=== PATIENT | female | born 1930 | race Caucasian/White ===

== ENCOUNTER 2016-12-21 08:11 | Inpatient (IN) | payer BC, OTHER ==
[~2016-12-21] VITALS: Ht 162.6 cm; Wt 79.0 kg
[~2016-12-21 08:11] MED LIST: ASPI81TA28 PO; Calcium PO; LSN25 PO; SIMV5TAB5 PO; VITBC PO; magnesium; vitamin d3
[2016-12-21] MEDS ORDERED: ONDANSETRON 8 MG/54 ML D5W IV STA (08:49)
[2016-12-21] MEDS ORDERED: SODIUM CHLORIDE 0.9% 1000ML 1,000 ML IV STA (08:49)
[2016-12-21 09:14] LABS: HEMATOCRIT 50.7 % (37-47); MEAN CELL VOLUME 94.6 fL (80-100); MEAN CORPUSCULAR HEMOGLOBIN 31.7 pg (25-34); MEAN CORPUSCULAR HGB CONC 33.5 g/dl (32-36); MEAN PLATELET VOLUME 10.9 fL (7.4-10.4); PLATELET COUNT 315 K/uL (130-400); RED BLOOD COUNT 5.36 M/uL (4.2-5.4); WHITE BLOOD COUNT 24.02 K/uL (4.8-10.8)
[2016-12-21 09:22] LABS: ALT/SGPT 29 U/L (12-78); BLOOD UREA NITROGEN 15 mg/dl (7-18); BUN/CREATININE RATIO 13.6 (10-20); CALCIUM 9.2 mg/dl (8.5-10.1); CARBON DIOXIDE 28 mmol/L (21-32); CHLORIDE 99 mmol/L (98-107); GLUCOSE 231 mg/dl (70-99); SODIUM 136 mmol/L (136-145)
[2016-12-21 09:29] LABS: URINE APPEARANCE CLOUDY (CLEAR); URINE BILIRUBIN NEG (NEG); URINE COLOR DK YELLOW; URINE EPITHELIAL CELL AUTO >30 /lpf (0-5); URINE NITRITE NEG (NEG); UROBILINOGEN NEG (NEG); ZZURINE CULT IF INDIC CATH YES
[2016-12-21 09:31] LABS: ALKALINE PHOSPHATASE 137 U/L (45-117); AST/SGOT 19 U/L (15-37); CKMB/CK RATIO 6.6 (0-3.0)
[2016-12-21 09:32] LABS: PARTIAL THROMBOPLASTIN RATIO 1.1; PROTHROMBIN TIME (PATIENT) 10.8 SECONDS (9.0-12.0)
[2016-12-21 09:32] LABS: MANUAL MICROSCOPIC REQUIRED? NO; REVIEW REQ? YES
--- NOTE | 2016-12-21 09:44 | DIAGNOSTIC IMAGING REPORT ---
CHEST ONE VIEW PORTABLE CLINICAL HISTORY: Altered mental status. Weakness. COMPARISON STUDY: Chest radiograph June 08, 2014. FINDINGS: There is no pneumothorax. A small left pleural effusion is noted. There is pulmonary vascular congestion with suspected mild pulmonary edema. Cardiomegaly is unchanged. Exam is mildly compromised by motion artifact. IMPRESSION: 1. Pulmonary vascular congestion with suspected mild pulmonary edema. 2. Small left pleural effusion. 3. Study mildly compromised by motion artifact. Electronically signed by: Milan Cardenas M.D. 12/21/2016 9:43 AM Dictated Date/Time: 12/21/2016 9:42 AM
[2016-12-21 09:47] LABS: BASO % 0.1 %; BASO ABS # 0.02 K/uL (0-0.2); COMPLETE YES; IG% 0.5 %; LYMPH % 2.9 %; LYMPH ABS # 0.69 K/uL (1.2-3.4); MONO % 4.3 %; NEUT % 92.2 %
[2016-12-21] MEDS ORDERED: METOPROLOL TARTRATE 1 MG/ML VIAL IV STA (09:49)
[2016-12-21] MEDS ORDERED: FURO-85 PO (10:08)
[2016-12-21] MEDS ORDERED: DILT-113 PO (10:08)
[2016-12-21] MEDS ORDERED: B-CO1CAP17 PO (10:08)
[2016-12-21] MEDS ORDERED: ASPCH81X PO (10:08)
[2016-12-21] MEDS ORDERED: CALC1TAB27 PO (10:08)
[2016-12-21] MEDS ORDERED: DILTIAZEM BOLUS / DRIP IV STA ×2 (10:36→13:28)
[2016-12-21] MEDS ORDERED: DILTIAZEM HCL 5 MG/ML 5 ML VIAL IV SCH (10:45)
[2016-12-21] MEDS: DILTIAZEM HCL INJ 125 MG in DEXTROSE 5% 100ML IV PRN ×5 (11:10→22:04)
[2016-12-21] MEDS ORDERED: CEFTRIAXONE SOD INJ 1 GM ADDVIAL IV STA (12:01)
[2016-12-21] MEDS ORDERED: ALUMINUM/MAGNESIUM/SIMETH (MAALOX MAX) 30 ML UDC PO PRN (13:15)
[2016-12-21] MEDS ORDERED: MAGNESIUM HYDROXIDE SUSP 30 ML UDC PO PRN (13:15)
[2016-12-21] MEDS ORDERED: ONDANSETRON INJ 2 MG/ML 2 ML VIAL IV PRN (13:15)
[2016-12-21] MEDS ORDERED: POLYETHYLENE (MIRALAX) 17 GM PACK PO PRN (13:15)
[2016-12-21 13:45] VITALS: O2SAT 96; Ht 162.6 cm; Wt 79.0 kg
--- NOTE | 2016-12-21 13:50 | History and Physical ---
History & Physical Date & Time of Service: Dec 21, 2016 at 13:30 Chief Complaint: VOMIT Primary Care Physician: Romario Dominguez M.D. History of Present Illness Source: patient, family (son at bedside), hospital records, [place] [facility] ([facility]) This is an 86 y/o female with a history of a-fib, HTN, HLD, CVA, diastolic CHF, depression and dementia who presented to the ED on 12/21 from [facility] with vomiting x 2 days. The patient has a history of dementia and most of the history is provided by the son who is at bedside. Per nursing at [facility], the patient began vomiting yesterday morning. The patient's son came to see her later in the morning and she had been starting to feel better. She was able to eat throughout the day without any issues. This morning the patient began vomiting again while the staff was getting her out of bed for the day. The son reports the vomitus was fluorescent green. The patient had stated to the ED physician that she was having diarrhea, but denies this to me. The patient denies fevers, chills, sweats, chest pain, palpitations, claudication, cough, wheezing, shortness of breath, abdominal pain, dysuria, hematuria, urinary retention, paralysis, weakness, numbness and tingling. Past Medical/Surgical History Medical Problems: (1) ASCVD Status: Chronic (2) Atrial fibrillation Status: Chronic (3) CVA Status: Resolved (4) Depression Status: Chronic (5) GI bleed Status: Resolved (6) Hyperlipidemia Status: Chronic (7) Hypertension Status: Chronic (8) SENILE DEMENTIA UNCOMP Status: Chronic Diastolic CHF Surgical Problems: (1) History of appendectomy Status: Resolved (2) History of cholecystectomy Status: Resolved (3) History of ORIF of left ankle x2 Status: Resolved (4) History of sphincterotomy Status: Resolved Family History FHx: coronary artery disease FATHER FHx: stroke FATHER Hypertension Social History Smoking Status: Never Smoker Smokeless Tobacco Use: No Alcohol Use: none Drug Use: none Marital Status: Housing status: [place] [facility] ([facility]) Occupational Status: retired Immunizations History of Influenza Vaccine: Yes Influenza Vaccine Date: Mar 01, 2010 History of Tetanus Vaccine?: Yes Tetanus Immunization Date: Jul 30, 2005 History of Pneumococcal: Yes Pneumococcal Date: Mar 01, 2010 History of Hepatitis B Vaccine: No Multi-Drug Resistant Organisms History of MDRO: No Allergies Coded Allergies: Bupropion (Verified Allergy, Mild, 12/21/16) Sulfa Drugs (Verified Allergy, Mild, 06/08/14) Carbamazepine (Unverified Allergy, Unknown, UNKNOWN, 12/21/16) Sulfa Antibiotics (Unverified Allergy, Unknown, UNKNOWN, 12/21/16) Venlafaxine (Unverified Allergy, Unknown, UNKNOWN, 12/21/16) Lorazepam (Verified Adverse Reaction, Intermediate, HALLUCINATIONS, RESTLESNESS, 06/08/14) FAMILY PROVIDED INFORMATION. Anesthetics, Halogenated (Verified Adverse Reaction, Mild, GENERAL ANESTHESIA-SEVERE INSOMNIA, 06/08/14) Zolpidem (Verified Adverse Reaction, Mild, HALLUCINATIONS, 12/21/16) Home Medications Scheduled Aspirin (Aspirin Chewable), 20.25 MG PO DAILY Strnreb-Qpeeyziwm-Defa (Calcium Magnesium & Zinc), 1 TAB PO DAILY Diltiazem Hcl Ext Rel (Tiazac), 180 MG PO DAILY Lisinopril (Lisinopril), 2.5 MG PO QAM Vitamin B Cmplx/Vitc/Folic Ac (Nephrocaps), 1 CAP PO DAILY Scheduled PRN Furosemide (Lasix), 20 MG PO DAILY PRN for WEIGHT GAIN Review of Systems Constitutional: No fever, No chills, No sweats Eyes: No worsening of vision, No eye pain, No diplopia ENT: No hearing loss, No sore throat, No trouble swallowing Respiratory: No cough, No wheezing, No shortness of breath Cardiovascular: No chest pain, No claudication, No palpitations Abdomen: + nausea, + vomiting, No pain Musculoskeletal: No joint pain, No muscle pain, No calf pain Genitourinary - Female: No dysuria, No urinary retention, No hematuria Neurologic: No paralysis, No weakness, No numbness/tingling Integumentary: No rash, No itch, No color change Physical Exam Vital Signs Date Time Temp Pulse Resp B/P (MAP) Pulse Ox O2 Delivery O2 Flow Rate FiO2 12/21/16 13:00 89 14 132/75 97 Nasal Cannula 2.0 12/21/16 12:56 75 18 120/73 98 Nasal Cannula 2.0 12/21/16 12:33 84 18 135/82 97 Nasal Cannula 2.0 12/21/16 12:15 80 15 146/82 97 Nasal Cannula 2.0 12/21/16 12:00 105 14 134/86 98 Nasal Cannula 2.0 12/21/16 11:45 104 20 132/90 97 Nasal Cannula 2.0 12/21/16 11:30 103 14 130/79 97 Nasal Cannula 2.0 12/21/16 11:15 95 12 119/76 96 Nasal Cannula 2.0 12/21/16 11:05 110 10 188/112 98 Nasal Cannula 2.0 12/21/16 10:50 109 14 170/119 97 Nasal Cannula 2.0 12/21/16 10:15 105 20 159/97 97 Nasal Cannula 2.0 12/21/16 10:07 106 164/95 12/21/16 09:59 106 12/21/16 09:50 107 16 157/87 98 Nasal Cannula 2.0 12/21/16 09:13 97 Nasal Cannula 2.0 12/21/16 08:55 88 Room Air 12/21/16 08:37 144 12/21/16 08:30 36.6 88 18 160/88 91 Room Air 12/21/16 08:23 91 Room Air General appearance: Well-developed, well-nourished, no apparent distress Head: Normocephalic, atraumatic Eyes: Normal inspection, PERRL, EOMI ENT: +Hard of hearing. Normal ENT inspection, pharynx normal Neck: Supple, no JVD, trachea midline Respiratory/Chest: Lungs clear to auscultation, normal breath sounds, no respiratory distress Cardiovascular: +Irregularly irregular, rate controlled. No gallop, no murmur Abdomen/GI: Normal bowel sounds, non-tender, soft Extremities/Musculoskeletal: Normal inspection, no calf tenderness, no pedal edema Neurological/Psych: +Disoriented to time. Did not know month, year, or current President. Could not tell me age or year but knew birthday. Alert , normal mood/affect, oriented x 2 Skin: Normal color, warm/dry, no rash Diagnostics Laboratory Results Results Past 24 Hours Test 12/21/16 08:32 12/21/16 08:40 12/21/16 09:05 12/21/16 13:01 Range/Units White Blood Count 24.02 4.8-10.8 K/uL Red Blood Count 5.36 4.2-5.4 M/uL Hemoglobin 17.0 12.0-16.0 g/dL Hematocrit 50.7 37-47 % Mean Corpuscular Volume 94.6 80-100 fL Mean Corpuscular Hemoglobin 31.7 25-34 pg Mean Corpuscular Hemoglobin Concent 33.5 32-36 g/dl Platelet Count 315 130-400 K/uL Mean Platelet Volume 10.9 7.4-10.4 fL Neutrophils (%) (Auto) 92.2 % Lymphocytes (%) (Auto) 2.9 % Monocytes (%) (Auto) 4.3 % Eosinophils (%) (Auto) 0.0 % Basophils (%) (Auto) 0.1 % Neutrophils # (Auto) 22.15 1.4-6.5 K/uL Lymphocytes # (Auto) 0.69 1.2-3.4 K/uL Monocytes # (Auto) 1.04 0.11-0.59 K/uL Eosinophils # (Auto) 0.01 0-0.5 K/uL Basophils # (Auto) 0.02 0-0.2 K/uL RDW Standard Deviation 45.1 36.4-46.3 fL RDW Coefficient of Variation 13.1 11.5-14.5 % Immature Granulocyte % (Auto) 0.5 % Immature Granulocyte # (Auto) 0.11 0.00-0.02 K/uL Prothrombin Time 10.8 9.0-12.0 SECONDS Prothromb Time International Ratio 1.0 0.9-1.1 Activated Partial Thromboplast Time 27.8 21.0-31.0 SECONDS Partial Thromboplastin Ratio 1.1 Sodium Level 136 136-145 mmol/L Potassium Level 4.0 3.5-5.1 mmol/L Chloride Level 99 98-107 mmol/L Carbon Dioxide Level 28 21-32 mmol/L Anion Gap 9.0 3-11 mmol/L Blood Urea Nitrogen 15 7-18 mg/dl Creatinine 1.10 0.60-1.20 mg/dl Est Creatinine Clear Calc Drug Dose 35.2 ml/min Estimated GFR () 52.3 Estimated GFR (Non- 45.1 BUN/Creatinine Ratio 13.6 10-20 Random Glucose 231 70-99 mg/dl Calcium Level 9.2 8.5-10.1 mg/dl Magnesium Level 2.0 1.8-2.4 mg/dl Total Bilirubin 0.5 0.2-1 mg/dl Direct Bilirubin < 0.1 0-0.2 mg/dl Aspartate Amino Transf (AST/SGOT) 19 15-37 U/L Alanine Aminotransferase (ALT/SGPT) 29 12-78 U/L Alkaline Phosphatase 137 45-117 U/L Total Creatine Kinase 29 26-192 U/L Creatine Kinase MB 1.9 0.5-3.6 ng/ml Creatine Kinase MB Ratio 6.6 0-3.0 Troponin I 0.021 0-0.045 ng/ml Total Protein 7.8 6.4-8.2 gm/dl Albumin 2.9 3.4-5.0 gm/dl Lipase 71 73-393 U/L Thyroid Stimulating Hormone (TSH) 2.380 0.300-4.500 uIu/ml Bedside Lactic Acid Venous 2.96 0.90-1.70 mmol/L Urine Color DK YELLOW Urine Appearance CLOUDY CLEAR Urine pH 6.0 4.5-7.5 Urine Specific [place] 1.020 1.000-1.030 Urine Protein 2+ NEG Urine Glucose (UA) NEG NEG Urine Ketones TRACE NEG Urine Occult Blood TRACE NEG Urine Nitrite NEG NEG Urine Bilirubin NEG NEG Urine Urobilinogen NEG NEG Urine Leukocyte Esterase SMALL NEG Urine WBC (Auto) 10-30 0-5 /hpf Urine RBC (Auto) 0-4 0-4 /hpf Urine Hyaline Casts (Auto) 5-10 0-5 /lpf Urine Epithelial Cells (Auto) >30 0-5 /lpf Urine Bacteria (Auto) 4+ NEG Urine Renal Epithelial Cells 0-5 /lpf Microbiology Results 12/21/16 Blood Culture, Ordered Pending 12/21/16 Blood Culture, Ordered Pending 12/21/16 Urine Culture, Received Pending Diagnostic Radiology Reviewed the following studies and agree with interpretation as follows: Patient Name: MAY OWEN Unit Number: [id number] Dictated: 12/21/16941 Transcribed: 12/21/16941 JA Printed Date/Time: [~ rep prt dt]/[~ rep prt tm] [~ rep ct labl] - [~ rep ct ivnm] [facility] [place] [address] Dictated: 12/21/1642 Transcribed: 12/21/1642 JA Printed Date/Time: [~ rep prt dt]/[~ rep prt tm] [~ rep ct labl] - [~ rep ct ivnm] Patient: MAY OWEN Address1: [address] [place] [address] Rec: [id number] Address2: Acct ID: [id number] [facility] Zip: [place] [address] Date: 1930 Sex: F Room/Bed: Ref Phy: Romario Dominguez M.D. SC: CHAD Att Phy: Report #: [id number] Anabela Phy: Romario Dominguez M.D. Test: [id number] Admit Phy: Novelty Candy Maker: SUJIT Interpreting Phy: Milan Cardenas MD Diagnosis: VOMIT Ordering Phy: Brayan Ramírez D.O. Service Date: 12/21/16 Admit Date: 12/21/16 MNE: [id number] CONF: DICTATED BY: Milan Cardenas MD]] CC: Brayan Ramírez D.O. Wiedemer, Joseph P. M.D. Endcc: [~ rep ct add3]] CHEST ONE VIEW PORTABLE CLINICAL HISTORY: Altered mental status. Weakness. COMPARISON STUDY: Chest radiograph June 08, 2014. FINDINGS: There is no pneumothorax. A small left pleural effusion is noted. There is pulmonary vascular congestion with suspected mild pulmonary edema. Cardiomegaly is unchanged. Exam is mildly compromised by motion artifact. IMPRESSION: 1. Pulmonary vascular congestion with suspected mild pulmonary edema. 2. Small left pleural effusion. 3. Study mildly compromised by motion artifact. Electronically signed by: Milan Cardenas M.D. 12/21/2016 9:43 AM Dictated Date/Time: 12/21/2016 9:42 AM The status of this report is Signed. Draft = Not yet reviewed or approved by Radiologist. Signed = Reviewed and approved by Radiologist. <AttendingPhy></AttendingPhy> <FamilyPhy>Romario Dominguez M.D.</FamilyPhy> < PrimaryPhy>Romario Dominguez M.D.</PrimaryPhy> <UnitNumber>[id number]</ UnitNumber> <VisitNumber>[id number]</VisitNumber> <PatientName>MAY OWEN</PatientName> <DateOfBirth>1930</DateOfBirth> <Location>[facility]</ Location> <ServiceDate>12/21/16</ServiceDate> <MNE>ESINDI</MNE> <OrderingPhy> Brayan Ramírez D.O.</OrderingPhy> <OrderingPhyMNE>f rep ord dr rodriguez</ OrderingPhyMNE> <DictatingPhyMNE>f rep dict dr rodriguez</DictatingPhyMNE> <CCListMNE> f rep ct mne</CCListMNE> <AdmittingPhyMNE>f pt admit dr rodriguez</AdmittingPhyMNE> < AttendingPhyMNE>f pt attend dr rodriguez</AttendingPhyMNE> <ConsultingPhyMNE>f pt consult dr rodriguez</ConsultingPhyMNE> <FamilyPhyMNE>f pt fam dr rodriguez</FamilyPhyMNE> <OtherPhyMNE>f pt other dr rodriguez</OtherPhyMNE> < PrimaryPhyMNE>f pt prim care dr rodriguez</PrimaryPhyMNE> <ReferringPhyMNE>f pt referring dr rodriguez</ReferringPhyMNE> EKG Reviewed EKG and agree with interpretation as follows: 144 bpm, a-fib with RVR Impression Assessment and Plan 86 y/o female with a history of a-fib, HTN, HLD, CVA, diastolic CHF, depression and dementia who presented to the ED on 12/21 from [facility] with vomiting x 2 days. Pt afebrile on arrival. Tachycardic, in a-fib with RVR and hypoxic with O2 sat 88% on room air. Pt does not typically wear oxygen although son states she is supposed to. The patient was given Lopressor 5 mg IV x 1 with no control of rate. Pt then placed on diltiazem drip with 20 mg bolus and is now rate controlled, BP stable. EKG shows a-fib with RVR, no ischemic changes. CXR suggestive of pulmonary edema. WBC elevated at 24.02. POC lactic acid 2.96. Cardiac enzymes negative. UA 4+ bacteria but also high in epithelial cells. Pt given IVF and Rocephin in ED. Sepsis, vomiting--unknown source, urinary vs GI -Admit to telemetry -Blood cultures x 2, although pt did receive 1 dose Rocephin before they could be drawn -Urine culture pending -Repeat lactic acid now -Check C. diff and stool cultures -NPO except meds due to vomiting. Pt denies any appetite -NSS at 100 cc/hr. Monitor for fluid overload due to h/o CHF -Zosyn IV empirically to cover both urinary and GI sources pending cultures A-fib with RVR--stable, now rate controlled. HR had been up in 140s prior to diltiazem bolus/drip -Continue diltiazem drip, titrate as needed for rate control. Hold home oral diltiazem for now -Continue ASA -EKG q am and prn with chest pain HTN, HLD, h/o CVA--stable -Continue lisinopril 2.5 mg PO qd Chronic diastolic CHF--stable, no acute exacerbation. CXR suggests pulmonary edema but does not sound wet on exam. More likely dehydrated due to vomiting/ sepsis -Hold off Lasix for now -Daily weights, I's & O's GI prophylaxis -Maalox Max 15 mL PO q4h prn dyspepsia -Milk of magnesia 30 mL PO q6h prn constipation -Miralax 17 gm PO qd prn constipation -Zofran 4 mg IV q6h prn nausea DVT prophylaxis -Heparin 5000 units SC q8h -MANUEL carpenter and SCDs Code Status -Level V, DO NOT RESUSCITATE PA Physician Supervision Note: I interviewed and examined the patient. Discussed with Marley Carvalho PAC and agree with findings and plan as documented in the note. Any exceptions or clarifications are listed here: None Patient presents from [facility] where she has been alone due to her 's illness with caregiver support however she's developed profuse nausea vomiting unable take her typical home medications tachycardia suprapubic pain with abnormal urinalysis and concern for surgery early sepsis. Her tachycardia was controlled with intravenous diltiazem. Current vital signs show her to be with a heart rate of 100 light pressure is stable Her cardiac exam is tachycardic but regular her lungs are coarse but no focal air loss her abdomen is with normal bowel sounds but suprapubic pain Neurologically she is oriented to person but not time she does know she is in a hospital Encephalopathy and sepsis, hydration follow lactic acid institute gram-negative and anaerobic coverage for concern for intra-abdominal pathology urine source is most likely Atrial fibrillation RVR acute diastolic heart failure due to her nausea and vomiting for continue intravenous diltiazem at this point in time serial cardiac enzymes and assessment of volume status Nausea and vomiting may be more a constellation from her sepsis will use antiemetics and hydration therapy Documented By: Adarsh Sin Level of Care Telemetry Resuscitation Status DO NOT RESUSCITATE VTE Prophylaxis VTE Risk Assessment Done? Y/N: Yes Risk Level: Moderate Given or contraindicated: Unfractionated heparin SQ, T.E.D. Stockings, SCD's
[2016-12-21] MEDS ORDERED: PIPERACILL/TAZOBAC CONSULT ACTIVE PRN (14:00)
[2016-12-21 14:24] VITALS: BP 153/91; PULSE 101; TEMP 36.8; O2SAT 93
[2016-12-21] MEDS: PIPERACILL/TAZOBAC IV 3.375 GM in DEXTROSE 5% 100ML IV ONE ×2 (15:20→18:20)
[2016-12-21] MEDS ORDERED: PIPERACILL/TAZOBAC IV 3.375 GM in DEXTROSE 5% 100ML 100 ML IV SCH (18:00)
[2016-12-21] MEDS: SODIUM CHLORIDE 0.9% 1000ML 1,000 ML IV SCH ×2 (18:19→23:53)
[2016-12-21 19:24] VITALS: BP 130/65; PULSE 57; TEMP 36.8; O2SAT 94
[2016-12-21] MEDS ORDERED: PIPERACILL/TAZOBAC IV 3.375 GM in DEXTROSE 5% 100ML IV SCH (20:00)
[2016-12-21] MEDS: HEPARIN SOD 5000 UNIT/0.5 ML CARP SQ SCH (22:04)
[2016-12-21] MEDS: PIPERACILL/TAZOBAC IV 3.375 GM in DEXTROSE 5% 100ML IV SCH (23:53)
[2016-12-22 04:41] VITALS: BP 156/88; PULSE 103; TEMP 36.9; O2SAT 97
[2016-12-22 05:52] LABS: HEMATOCRIT 48.7 % (37-47); MEAN CELL VOLUME 95.3 fL (80-100); MEAN CORPUSCULAR HEMOGLOBIN 30.5 pg (25-34); MEAN PLATELET VOLUME 10.4 fL (7.4-10.4); PLATELET COUNT 272 K/uL (130-400); RED BLOOD COUNT 5.11 M/uL (4.2-5.4); WHITE BLOOD COUNT 17.57 K/uL (4.8-10.8)
[2016-12-22] MEDS: HEPARIN SOD 5000 UNIT/0.5 ML CARP SQ SCH ×3 (05:55→22:32)
[2016-12-22 06:30] LABS: BUN/CREATININE RATIO 14.7 (10-20); CALCIUM 8.1 mg/dl (8.5-10.1); CREATININE 0.85 mg/dl (0.60-1.20); POTASSIUM 3.7 mmol/L (3.5-5.1)
[2016-12-22 06:58] VITALS: BP 180/97; PULSE 99; TEMP 36.8; O2SAT 93
[2016-12-22] MEDS: PIPERACILL/TAZOBAC IV 3.375 GM in DEXTROSE 5% 100ML IV SCH ×2 (07:44→16:17)
[2016-12-22] MEDS: ASPIRIN 81 MG CHEW PO SCH (08:13)
[2016-12-22] MEDS: LISINOPRIL 2.5 MG TAB PO SCH (08:13)
[2016-12-22] MEDS: NEPHROCAPS PO SCH (08:13)
[2016-12-22] MEDS ORDERED: DILTIAZEM HCL (TIAzac) 180 MG CAPCR PO SCH (09:00)
[2016-12-22] MEDS: SODIUM CHLORIDE 0.9% 1000ML 1,000 ML IV SCH (09:48)
[2016-12-22 11:19] VITALS: BP 140/78; PULSE 71; TEMP 36.9; O2SAT 91
--- NOTE | 2016-12-22 12:12 | Progress Note ---
Subjective Date of Service: Dec 22, 2016. Subjective Pt evaluation today including: conversation w/ patient, physical exam, chart review, lab review, review of studies, review of inpatient medication list this AM Pt in emotional distress Family at bedside Review of Systems Constitutional: No fever, No chills, No weight loss, No weakness Respiratory: No cough, No sputum, No wheezing, No shortness of breath, No dyspnea on exertion Cardiac: No chest pain, No orthopnea, No PND, No edema Abdomen: + diarrhea, No pain, No nausea, No vomiting, No constipation Musculoskeletal: No joint pain, No muscle pain, No swelling, No calf pain Female : No dysuria, No urinary frequency, No hematuria, No abnormal vaginal bleeding Neurologic: No memory loss, No paralysis, No weakness, No numbness/tingling Psychiatric: No depression symptoms, No anhedonism, No anxiety, No insomnia Endo: No fatigue, No excessive thirst Skin: No rash, No itch Objective Vital Signs Date Time Temp Pulse Resp B/P (MAP) Pulse Ox O2 Delivery O2 Flow Rate FiO2 12/22/16 11:19 36.9 71 17 140/78 (98) 91 Room Air 12/22/16 08:00 Room Air 12/22/16 06:58 36.8 99 18 180/97 (124) 93 Room Air 12/22/16 04:41 36.9 103 16 156/88 (110) 97 Nasal Cannula 2.0 12/22/16 04:00 Room Air 12/22/16 00:00 Room Air 12/21/16 20:00 Room Air 12/21/16 19:24 36.8 57 20 130/65 (86) 94 Nasal Cannula 2.0 12/21/16 16:00 Nasal Cannula 12/21/16 14:24 36.8 101 18 153/91 (111) 93 Nasal Cannula 2.0 12/21/16 13:45 96 Nasal Cannula 2.0 12/21/16 13:33 98 18 154/88 96 Nasal Cannula 2.0 12/21/16 13:00 89 14 132/75 97 Nasal Cannula 2.0 12/21/16 12:56 75 18 120/73 98 Nasal Cannula 2.0 12/21/16 12:33 84 18 135/82 97 Nasal Cannula 2.0 12/21/16 12:15 80 15 146/82 97 Nasal Cannula 2.0 Physical Exam General Appearance: WD/WN, + moderate distress Eyes: normal inspection, PERRL, EOMI, sclerae normal Neck: supple, no adenopathy, thyroid normal, no JVD Respiratory/Chest: chest non-tender, normal breath sounds, no respiratory distress, no accessory muscle use Cardiovascular: no gallop, no JVD, + tachycardia, + irregularly irregular Abdomen: normal bowel sounds, non tender, soft, no organomegaly Neurologic/Psychiatric: no motor/sensory deficits, alert, normal mood/affect, + disoriented Laboratory Results Last 24 Hours Test 12/21/16 15:16 12/22/16 05:32 Lactic Acid Level 1.7 mmol/L White Blood Count 17.57 K/uL Red Blood Count 5.11 M/uL Hemoglobin 15.6 g/dL Hematocrit 48.7 % Mean Corpuscular Volume 95.3 fL Mean Corpuscular Hemoglobin 30.5 pg Mean Corpuscular Hemoglobin Concent 32.0 g/dl RDW Standard Deviation 46.3 fL RDW Coefficient of Variation 13.2 % Platelet Count 272 K/uL Mean Platelet Volume 10.4 fL Sodium Level 139 mmol/L Potassium Level 3.7 mmol/L Chloride Level 104 mmol/L Carbon Dioxide Level 30 mmol/L Anion Gap 5.0 mmol/L Blood Urea Nitrogen 12 mg/dl Creatinine 0.85 mg/dl Est Creatinine Clear Calc Drug Dose 45.5 ml/min Estimated GFR () 71.4 Estimated GFR (Non- 61.6 BUN/Creatinine Ratio 14.7 Random Glucose 148 mg/dl Calcium Level 8.1 mg/dl Assessment and Plan 86 y/o female with a history of a-fib, HTN, HLD, CVA, diastolic CHF, depression and dementia who presented to the ED on 12/21 from [facility] with vomiting x 2 days. Pt afebrile on arrival. Tachycardic, in a-fib with RVR and hypoxic with O2 sat 88% on room air. Pt does not typically wear oxygen although son states she is supposed to. The patient was given Lopressor 5 mg IV x 1 with no control of rate. Pt then placed on diltiazem drip with 20 mg bolus and is now rate controlled, BP stable. EKG shows a-fib with RVR, no ischemic changes. CXR suggestive of pulmonary edema. WBC elevated at 24.02. POC lactic acid 2.96. Cardiac enzymes negative. UA 4+ bacteria but also high in epithelial cells. Pt given IVF and Rocephin in ED. Sepsis, vomiting--unknown source, urinary vs GI -Admit to telemetry -Blood cultures x 2, although pt did receive 1 dose Rocephin before they could be drawn -Urine culture pending -Repeat lactic acid resolved at 1.7 -Check C. diff and stool cultures -NPO except meds due to vomiting. Pt denies any appetite -NSS at 100 cc/hr. Monitor for fluid overload due to h/o CHF -Zosyn IV empirically to cover both urinary and GI sources pending cultures, leukocytosis improving A-fib with RVR--stable, now rate controlled. HR had been up in 140s prior to diltiazem bolus/drip -Continue diltiazem drip, titrate as needed for rate control. Hold home oral diltiazem for now -Continue ASA -EKG q am and prn with chest pain HTN, HLD, h/o CVA--stable -Continue lisinopril 2.5 mg PO qd Chronic diastolic CHF--stable, no acute exacerbation. CXR suggests pulmonary edema but does not sound wet on exam. More likely dehydrated due to vomiting/ sepsis -Hold off Lasix for now -Daily weights, I's & O's GI prophylaxis -Maalox Max 15 mL PO q4h prn dyspepsia -Milk of magnesia 30 mL PO q6h prn constipation -Miralax 17 gm PO qd prn constipation -Zofran 4 mg IV q6h prn nausea DVT prophylaxis -Heparin 5000 units SC q8h -MANUEL Rees Code Status -Level V, DO NOT RESUSCITATE
[2016-12-22 15:19] VITALS: BP_SYST 119; BP_SYST 144; BP_DIAS 70; BP_DIAS 84; PULSE 60; PULSE 85; TEMP 36.8; TEMP 36.9; O2SAT 95; O2SAT 97
--- NOTE | 2016-12-22 15:52 | EMERGENCY ROOM VISIT NOTE ---
History Report prepared by Scribe: Marifer Calvert Under the Supervision of: Dr. Brayan Ramírez D.O. First contact with patient: 08:44 Chief Complaint: VOMITING Stated Complaint: VOMIT Nursing Triage Summary: pt resides [place] [facility], has hx of dementia/ alzheimers, hard of hearing. sent here for eval of projectile vomiting x 2 days. pt denies any pain. states she is here for vomiting also states she diarrhea. History of Present Illness The patient is a 86 year old female who presents to the Emergency Room with complaints of persistent vomiting that started earlier this morning. She was brought to the ED via EMS from the [facility], where she resides, and is accompanied by her son. Her son reports yesterday he got a call from the [facility] telling him she had been vomiting. His brother went to visit the patient and she seemed to be improving, but this morning she started vomiting again and had diarrhea. The patient has a history of dementia and Alzheimer's disease. She denies any pain here in the ED. Her son reports she was recently visiting her here in the hospital. He states she had a meal with him 2 days ago and could have picked up a virus during her visit. Source of History: family (Son) History Limited By: dementia Onset: Earlier this morning Position: other (global) Timing: other (persistent) Associated Symptoms: + nausea, + vomiting Review of Systems See HPI for pertinent positives & negatives. A total of 10 systems reviewed and were otherwise negative. Past Medical & Surgical Medical Problems: (1) ASCVD (2) Atrial fibrillation (3) CVA (4) Depression (5) GI bleed (6) Hyperlipidemia (7) Hypertension (8) HYPERTENSION NOS (9) SENILE DEMENTIA UNCOMP (10) Sepsis (11) Vomiting Surgical Problems: (1) History of appendectomy (2) History of cholecystectomy (3) History of ORIF of left ankle x2 (4) History of sphincterotomy Family History FHx: coronary artery disease FATHER FHx: stroke FATHER Social History Smoking Status: Never Smoker Alcohol Use: none Drug Use: none Marital Status: Housing Status: jail ([facility]) Occupation Status: retired Current/Historical Medications Scheduled Aspirin (Aspirin Chewable), 20.25 MG PO DAILY Pepjuxx-Lkzrwkjeo-Nlna (Calcium Magnesium & Zinc), 1 TAB PO DAILY Diltiazem Hcl Ext Rel (Tiazac), 180 MG PO DAILY Lisinopril (Lisinopril), 2.5 MG PO QAM Vitamin B Cmplx/Vitc/Folic Ac (Nephrocaps), 1 CAP PO DAILY Scheduled PRN Furosemide (Lasix), 20 MG PO DAILY PRN for WEIGHT GAIN Allergies Coded Allergies: Bupropion (Verified Allergy, Mild, 12/21/16) Sulfa Drugs (Verified Allergy, Mild, 06/08/14) Carbamazepine (Unverified Allergy, Unknown, UNKNOWN, 12/21/16) Sulfa Antibiotics (Unverified Allergy, Unknown, UNKNOWN, 12/21/16) Venlafaxine (Unverified Allergy, Unknown, UNKNOWN, 12/21/16) Lorazepam (Verified Adverse Reaction, Intermediate, HALLUCINATIONS, RESTLESNESS, 06/08/14) FAMILY PROVIDED INFORMATION. Anesthetics, Halogenated (Verified Adverse Reaction, Mild, GENERAL ANESTHESIA-SEVERE INSOMNIA, 06/08/14) Zolpidem (Verified Adverse Reaction, Mild, HALLUCINATIONS, 12/21/16) Physical Exam Vital Signs Date Time Temp Pulse Resp B/P (MAP) Pulse Ox O2 Delivery O2 Flow Rate FiO2 12/21/16 13:00 89 14 132/75 97 Nasal Cannula 2.0 12/21/16 12:56 75 18 120/73 98 Nasal Cannula 2.0 12/21/16 12:33 84 18 135/82 97 Nasal Cannula 2.0 12/21/16 12:15 80 15 146/82 97 Nasal Cannula 2.0 12/21/16 12:00 105 14 134/86 98 Nasal Cannula 2.0 12/21/16 11:45 104 20 132/90 97 Nasal Cannula 2.0 12/21/16 11:30 103 14 130/79 97 Nasal Cannula 2.0 12/21/16 11:15 95 12 119/76 96 Nasal Cannula 2.0 12/21/16 11:05 110 10 188/112 98 Nasal Cannula 2.0 12/21/16 10:50 109 14 170/119 97 Nasal Cannula 2.0 12/21/16 10:15 105 20 159/97 97 Nasal Cannula 2.0 12/21/16 10:07 106 164/95 12/21/16 09:59 106 12/21/16 09:50 107 16 157/87 98 Nasal Cannula 2.0 12/21/16 09:13 97 Nasal Cannula 2.0 12/21/16 08:55 88 Room Air 12/21/16 08:37 144 12/21/16 08:30 36.6 88 18 160/88 91 Room Air 12/21/16 08:23 91 Room Air Physical Exam CONSTITUTIONAL/VITAL SIGNS: Reviewed / noted above. GENERAL: Non-toxic in appearance. INTEGUMENTARY: Warm, dry, and [place]. HEAD: Normocephalic. EYES: without scleral icterus or trauma. ENT/OROPHARYNX: clear and moist. LYMPHADENOPATHY/NECK: Is supple without lymphadenopathy or meningismus. RESPIRATORY: Lungs clear and equal. CARDIOVASCULAR: Regular rate and rhythm. GI/ABDOMEN: Soft and nontender. No organomegaly or pulsatile mass. No rebound or guarding. Hyperactive bowel sounds. EXTREMITIES: Warm and well perfused. BACK: No CVA tenderness. NEUROLOGICAL: Intact without focal deficits. PSYCHIATRIC: normal affect. MUSCULOSKELETAL: Normally developed with good muscle tone. Medical Decision & Procedures ER Provider Diagnostic Interpretation: Radiology results as stated below per my review and radiologist interpretation: CHEST ONE VIEW PORTABLE CLINICAL HISTORY: Altered mental status. Weakness. COMPARISON STUDY: Chest radiograph June 08, 2014. FINDINGS: There is no pneumothorax. A small left pleural effusion is noted. There is pulmonary vascular congestion with suspected mild pulmonary edema. Cardiomegaly is unchanged. Exam is mildly compromised by motion artifact. IMPRESSION: 1. Pulmonary vascular congestion with suspected mild pulmonary edema. 2. Small left pleural effusion. 3. Study mildly compromised by motion artifact. Electronically signed by: Milan Cardenas M.D. 12/21/2016 9:43 AM Laboratory Results Test 12/21/16 08:32 12/21/16 08:40 12/21/16 09:05 Immature Granulocyte % (Auto) 0.5 % White Blood Count 24.02 K/uL (4.8-10.8) Red Blood Count 5.36 M/uL (4.2-5.4) Hemoglobin 17.0 g/dL (12.0-16.0) Hematocrit 50.7 % (37-47) Mean Corpuscular Volume 94.6 fL (80-100) Mean Corpuscular Hemoglobin 31.7 pg (25-34) Mean Corpuscular Hemoglobin Concent 33.5 g/dl (32-36) Platelet Count 315 K/uL (130-400) Mean Platelet Volume 10.9 fL (7.4-10.4) Neutrophils (%) (Auto) 92.2 % Lymphocytes (%) (Auto) 2.9 % Monocytes (%) (Auto) 4.3 % Eosinophils (%) (Auto) 0.0 % Basophils (%) (Auto) 0.1 % Neutrophils # (Auto) 22.15 K/uL (1.4-6.5) Lymphocytes # (Auto) 0.69 K/uL (1.2-3.4) Monocytes # (Auto) 1.04 K/uL (0.11-0.59) Eosinophils # (Auto) 0.01 K/uL (0-0.5) Basophils # (Auto) 0.02 K/uL (0-0.2) Immature Granulocyte # (Auto) 0.11 K/uL (0.00-0.02) Prothrombin Time 10.8 SECONDS (9.0-12.0) Prothromb Time International Ratio 1.0 (0.9-1.1) Activated Partial Thromboplast Time 27.8 SECONDS (21.0-31.0) Partial Thromboplastin Ratio 1.1 Magnesium Level 2.0 mg/dl (1.8-2.4) Total Bilirubin 0.5 mg/dl (0.2-1) Direct Bilirubin < 0.1 mg/dl (0-0.2) Aspartate Amino Transf (AST/SGOT) 19 U/L (15-37) Alanine Aminotransferase (ALT/SGPT) 29 U/L (12-78) Alkaline Phosphatase 137 U/L (45-117) Total Creatine Kinase 29 U/L (26-192) Creatine Kinase MB 1.9 ng/ml (0.5-3.6) Creatine Kinase MB Ratio 6.6 (0-3.0) Troponin I 0.021 ng/ml (0-0.045) Total Protein 7.8 gm/dl (6.4-8.2) Albumin 2.9 gm/dl (3.4-5.0) Lipase 71 U/L (73-393) Thyroid Stimulating Hormone (TSH) 2.380 uIu/ml (0.300-4.500) Bedside Lactic Acid Venous 2.96 mmol/L (0.90-1.70) Urine Color DK YELLOW Urine Appearance CLOUDY (CLEAR) Urine pH 6.0 (4.5-7.5) Urine Specific [place] 1.020 (1.000-1.030) Urine Protein 2+ (NEG) Urine Glucose (UA) NEG (NEG) Urine Ketones TRACE (NEG) Urine Occult Blood TRACE (NEG) Urine Nitrite NEG (NEG) Urine Bilirubin NEG (NEG) Urine Urobilinogen NEG (NEG) Urine Leukocyte Esterase SMALL (NEG) Urine WBC (Auto) 10-30 /hpf (0-5) Urine RBC (Auto) 0-4 /hpf (0-4) Urine Hyaline Casts (Auto) 5-10 /lpf (0-5) Urine Epithelial Cells (Auto) >30 /lpf (0-5) Urine Bacteria (Auto) 4+ (NEG) Urine Renal Epithelial Cells /lpf (0-5) Laboratory results as stated above per my review. Medications Administered Medications (Trade) Dose Ordered Sig/Jonah Route Start Time Stop Time Status Last Admin Dose Admin Sodium Chloride 1,000 ml @ 200 mls/hr Q5H STAT IV 12/21/16 08:49 12/21/16 13:50 DC 12/21/16 08:58 200 MLS/HR Ondansetron HCl (Zofran 8mg Iv) 8 mg NOW STAT IV 12/21/16 08:49 12/21/16 08:52 DC 12/21/16 08:57 8 MG Metoprolol Tartrate (Lopressor Iv) 5 mg NOW STAT IV 12/21/16 09:49 12/21/16 09:50 DC 12/21/16 10:07 5 MG Diltiazem HCl (Cardizem Inj) 20 mg TODAY@1045 IV 12/21/16 10:45 12/21/16 10:46 DC 12/21/16 11:08 20 MG Diltiazem HCl 125 mg/Dextrose 125 ml @ 0 mls/hr Q0M PRN IV 12/21/16 10:45 01/20/17 10:44 12/21/16 22:04 5 MLS/HR Ceftriaxone Sodium (Rocephin Inj) 1 gm NOW STAT IV 12/21/16 12:01 12/21/16 12:02 DC 12/21/16 12:32 1 GM Sodium Chloride 1,000 ml @ 100 mls/hr Q10H IV 12/21/16 13:01 01/20/17 13:00 12/22/16 09:48 100 MLS/HR ECG Indication: vomiting Rate (beats per minute): 144 Rhythm: sinus rhythm Findings: 1st degree AV block, no acute ischemic change, other (Atrial bigeminy ) Change: Repeat EKG performed on 12/21/2016: Atrial flutter, rate of 143, no acute injury , no ectopy. Third EKG performed on 12/21/2016: Sinus rhythm, rate of 100, PVC's, no acute injury, no ectopy. ED Course 0845: Previous medical records were reviewed. The patient was evaluated in room A11. A complete history and physical examination was performed. 0849: Zofran 8 mg IV, NSS 1000 ml @ 200 mls/hr IV. 0949: Lopressor 5 mg IV. 1045: Diltiazem HCl 125 mg/Dextrose 125 ml @ 0 mls/hr IV, Diltiazem HCl 20 mg IV. 1200: I reevaluated the patient. She is resting comfortably. I discussed my recommendation she remain in the hospital for further evaluation and management and she verbalized complete understanding and agreement 1201: Rocephin 1 gm IV. 1205: I discussed the patients case with Dr. Sin [facility] Hospitalist. The patient will be further evaluated. Medical Decision Differential diagnosis: Etiologies such as gastroenteritis, food borne illness, infections, appendicitis, diverticulitis, inflammatory bowel disease, obstruction, GI bleed, biliary pathology, as well as others were entertained. Medication Reconcilliation Current Medication List: was personally reviewed by me Blood Pressure Screening Patient's blood pressure: Normal blood pressure Blood pressure disposition: Did not require urgent referral Consults Time Called: 1200 Consulting Physician: Dr. Sin [facility] Hospitalist Returned Call: 1205 I discussed the patients case with Dr. Sin [facility] Hospitalist. The patient will be further evaluated. Impression Primary Impression: Atrial fibrillation and flutter Additional Impressions: Atrial fibrillation with RVR UTI (urinary tract infection) Scribe Attestation The scribe's documentation has been prepared under my direction and personally reviewed by me in its entirety. I confirm that the note above accurately reflects all work, treatment, procedures, and medical decision making performed by me. Departure Information Dispostion Being Evaluated By Hospitalist Joshua Cooper M.D. (PCP) Patient Instructions My [facility] Problem Qualifiers
[2016-12-22 19:10] VITALS: BP 133/81; PULSE 93; TEMP 36.9; O2SAT 86
[2016-12-22 23:16] VITALS: BP 184/95; PULSE 97; TEMP 37; O2SAT 96
[2016-12-23] VITALS (9 sets, daily range): BP systolic 111–191; BP diastolic 60–109; PULSE 76–108; TEMP 36.6–37.1; O2SAT 95–98
[2016-12-23] MEDS: PIPERACILL/TAZOBAC IV 3.375 GM in DEXTROSE 5% 100ML IV SCH ×2 (00:49→07:47)
[2016-12-23] MEDS: DILTIAZEM HCL INJ 125 MG in DEXTROSE 5% 100ML IV PRN (01:32)
[2016-12-23 06:10] LABS: HEMATOCRIT 44.8 % (37-47); MEAN CELL VOLUME 95.5 fL (80-100); MEAN CORPUSCULAR HGB CONC 33.5 g/dl (32-36); MEAN PLATELET VOLUME 10.7 fL (7.4-10.4); PLATELET COUNT 249 K/uL (130-400); RED BLOOD COUNT 4.69 M/uL (4.2-5.4); WHITE BLOOD COUNT 16.33 K/uL (4.8-10.8)
[2016-12-23] MEDS: SODIUM CHLORIDE 0.9% 1000ML 1,000 ML IV SCH ×3 (06:16→15:09)
[2016-12-23] MEDS: HEPARIN SOD 5000 UNIT/0.5 ML CARP SQ SCH ×3 (06:17→21:53)
[2016-12-23 06:44] LABS: BUN/CREATININE RATIO 16.2 (10-20); CALCIUM 7.8 mg/dl (8.5-10.1); CREATININE 0.91 mg/dl (0.60-1.20); POTASSIUM 3.4 mmol/L (3.5-5.1)
[2016-12-23] MEDS ORDERED: POTASSIUM CHLORIDE 10 MEQ TABCR PO ONE (07:45)
[2016-12-23] MEDS: ASPIRIN 81 MG CHEW PO SCH (07:48)
[2016-12-23] MEDS: NEPHROCAPS PO SCH (07:49)
[2016-12-23] MEDS: LISINOPRIL 2.5 MG TAB PO SCH (07:54)
[2016-12-23] MEDS ORDERED: AMOXICILLIN/CLAVULANATE TAB 875 MG TAB PO ONE (10:49)
[2016-12-23] MEDS ORDERED: DILTIAZEM HCL 180 MG ER CAP PO ONE (10:49)
[2016-12-23] MEDS ORDERED: POTASSIUM CHLORIDE 20 MEQ/15 ML UDC PO STA (10:50)
--- NOTE | 2016-12-23 11:30 | Progress Note ---
Subjective Date of Service: Dec 23, 2016. Subjective Pt evaluation today including: conversation w/ patient, conversation w/ family , physical exam, chart review, lab review, review of studies, review of inpatient medication list Resting comfortably in bed Hard of hearing No pain or distress noted States diarrhea resolved Problem List Medical Problems: (1) Atrial fibrillation and flutter Status: Acute (2) Atrial fibrillation with RVR Status: Acute (3) UTI (urinary tract infection) Status: Acute Review of Systems Constitutional: No fever, No chills, No sweats, No weight loss, No weakness ENT: No hearing loss, No unusual epistaxis, No nasal symptoms, No sore throat Respiratory: No cough, No sputum, No wheezing, No shortness of breath, No dyspnea on exertion Cardiac: No chest pain, No orthopnea, No PND, No edema Abdomen: No pain, No nausea, No vomiting, No diarrhea, No constipation Musculoskeletal: No joint pain, No muscle pain, No swelling, No calf pain Female : No dysuria, No urinary frequency, No hematuria, No incontinence Neurologic: No memory loss, No paralysis, No weakness, No numbness/tingling Psychiatric: No depression symptoms, No anhedonism, No anxiety, No insomnia Endo: No fatigue, No excessive thirst Skin: No rash, No itch Objective Vital Signs Date Time Temp Pulse Resp B/P (MAP) Pulse Ox O2 Delivery O2 Flow Rate FiO2 12/23/16 08:03 36.6 76 20 129/60 (83) 95 12/23/16 08:00 97 Nasal Cannula 2.0 12/23/16 04:00 Nasal Cannula 2.0 12/23/16 03:12 36.8 97 16 179/89 (119) 97 Nasal Cannula 2.0 12/22/16 23:59 Nasal Cannula 2.0 12/22/16 23:16 37.0 97 18 184/95 (124) 96 Nasal Cannula 2.0 12/22/16 20:00 Nasal Cannula 2.0 12/22/16 19:10 36.9 93 20 133/81 (98) 86 Room Air 12/22/16 16:00 Room Air 12/22/16 15:19 36.9 60 18 144/84 (104) 97 Room Air 12/22/16 12:00 Room Air Physical Exam General Appearance: WD/WN, no apparent distress Eyes: normal inspection, PERRL, EOMI, sclerae normal Neck: supple, no adenopathy, thyroid normal, no JVD Respiratory/Chest: chest non-tender, lungs clear, normal breath sounds, no respiratory distress Cardiovascular: regular rate, rhythm, no edema, no gallop, no JVD Abdomen: normal bowel sounds, non tender, soft, no organomegaly Neurologic/Psychiatric: no motor/sensory deficits, alert, normal mood/affect Laboratory Results Last 24 Hours Test 12/23/16 05:35 White Blood Count 16.33 K/uL Red Blood Count 4.69 M/uL Hemoglobin 15.0 g/dL Hematocrit 44.8 % Mean Corpuscular Volume 95.5 fL Mean Corpuscular Hemoglobin 32.0 pg Mean Corpuscular Hemoglobin Concent 33.5 g/dl RDW Standard Deviation 46.2 fL RDW Coefficient of Variation 13.3 % Platelet Count 249 K/uL Mean Platelet Volume 10.7 fL Sodium Level 140 mmol/L Potassium Level 3.4 mmol/L Chloride Level 105 mmol/L Carbon Dioxide Level 27 mmol/L Anion Gap 8.0 mmol/L Blood Urea Nitrogen 15 mg/dl Creatinine 0.91 mg/dl Est Creatinine Clear Calc Drug Dose 42.8 ml/min Estimated GFR () 65.7 Estimated GFR (Non- 56.7 BUN/Creatinine Ratio 16.2 Random Glucose 157 mg/dl Calcium Level 7.8 mg/dl Assessment and Plan 86 y/o female with a history of a-fib, HTN, HLD, CVA, diastolic CHF, depression and dementia who presented to the ED on 12/21 from [facility] with vomiting x 2 days. Pt afebrile on arrival. Tachycardic, in a-fib with RVR and hypoxic with O2 sat 88% on room air. Pt does not typically wear oxygen although son states she is supposed to. The patient was given Lopressor 5 mg IV x 1 with no control of rate. Pt then placed on diltiazem drip with 20 mg bolus and is now rate controlled, BP stable. EKG shows a-fib with RVR, no ischemic changes. CXR suggestive of pulmonary edema. WBC elevated at 24.02. POC lactic acid 2.96. Cardiac enzymes negative. UA 4+ bacteria but also high in epithelial cells. Pt given IVF and Rocephin in ED. Sepsis likely UTI -Admitted to telemetry -Blood cultures x 2 NGTD, although pt did receive 1 dose Rocephin before they could be drawn -Urine culture currently gorwing out E Coli -Repeat lactic acid resolved at 1.7 -Check C. diff and stool cultures neg -Advance diet as tolerated -NSS at 100 cc/hr. Monitor for fluid overload due to h/o CHF -Zosyn IV empirically to cover both urinary and GI sources pending cultures, leukocytosis improving A-fib with RVR--stable, now rate controlled. HR had been up in 140s prior to diltiazem bolus/drip -Disontinue diltiazem drip and restart on oral diltiazem, cont ASA -EKG q am and prn with chest pain HTN, HLD, h/o CVA--stable -Continue lisinopril 2.5 mg PO qd Chronic diastolic CHF--stable, no acute exacerbation. CXR suggests pulmonary edema but does not sound wet on exam. More likely dehydrated due to vomiting/ sepsis -Hold off Lasix for now -Daily weights, I's & O's GI prophylaxis -Maalox Max 15 mL PO q4h prn dyspepsia -Milk of magnesia 30 mL PO q6h prn constipation -Miralax 17 gm PO qd prn constipation -Zofran 4 mg IV q6h prn nausea DVT prophylaxis -Heparin 5000 units SC q8h -MANUEL carpenter and SCDs Code Status -Level V, DO NOT RESUSCITATE
[2016-12-23] MEDS ORDERED: HydrALAZINE HCL 20 MG/ML VIAL ONE (12:31)
[2016-12-23] MEDS ORDERED: AMOXICILLIN/CLAVULANATE TAB 875 MG TAB PO SCH (16:45)
[2016-12-23] MEDS ORDERED: METOPROLOL TARTRATE 1 MG/ML VIAL IV STA (19:45)
[2016-12-23] MEDS ORDERED: METOPROLOL TARTRATE 1 MG/ML VIAL ONE (19:48)
[2016-12-24] VITALS (7 sets, daily range): BP systolic 124–190; BP diastolic 72–106; PULSE 76–125; TEMP 36.4–37.2; O2SAT 92–97
[2016-12-24] MEDS: HydrALAZINE HCL 20 MG/ML VIAL IV. PRN (00:40)
[2016-12-24] MEDS ORDERED: METOPROLOL TARTRATE 1 MG/ML VIAL ONE (01:50)
[2016-12-24] MEDS ORDERED: METOPROLOL TARTRATE 1 MG/ML VIAL IV STA (01:54)
[2016-12-24] MEDS ORDERED: NURSING VERBAL MED ORDER ONE ×2 (02:00→05:15)
[2016-12-24] MEDS ORDERED: OPTIRAY 320 IV PRN (02:00)
[2016-12-24] MEDS: SODIUM CHLORIDE 0.9% 1000ML 1,000 ML IV SCH ×2 (02:10→16:59)
--- NOTE | 2016-12-24 03:15 | Progress Note ---
Progress Note Date of Service Dec 24, 2016. Progress Note I was notified by the nurses morning the patient had 2 large bouts of emeses, that appeared bilious. I also noted to have been having some increased abdominal distention and diminished bowel sounds. Last stated bowel movement was apparently on 12/20. I ordered a CT scan with IV contrast of the abdomen/pelvis to evaluate for bowel obstruction. Image was read as possible small bowel obstruction. I ordered following: NG tube to low intermittent suction, keep patient nothing by mouth (the patient is already on IV fluids), and I will place a consultation for general surgery to see in the morning. Also notes the day team to follow, a pancreatic hypodensity, previously reported as 1.6 cm (date of this history is unknown) was recommended to have increased to 3.2 cm
[2016-12-24] MEDS: HEPARIN SOD 5000 UNIT/0.5 ML CARP SQ SCH ×3 (06:38→21:02)
[2016-12-24 07:10] LABS: HEMATOCRIT 47.3 % (37-47); MEAN CELL VOLUME 93.3 fL (80-100); MEAN CORPUSCULAR HGB CONC 34.2 g/dl (32-36); PLATELET COUNT 276 K/uL (130-400); RED BLOOD COUNT 5.07 M/uL (4.2-5.4); WHITE BLOOD COUNT 19.55 K/uL (4.8-10.8)
--- NOTE | 2016-12-24 07:16 | DIAGNOSTIC IMAGING REPORT ---
ABD/PELVIS IV CONTRAST ONLY HISTORY: 86 years-old Female large emesis, nausea; distension; rule-out bowel obstruction COMPARISON: CT abdomen and pelvis 03/29/2013 TECHNIQUE: Multiple axial CT images of the abdomen and pelvis were obtained following the intravenous administration of 93 mL Optiray 320. A dose lowering technique was used consistent with the principals of BLU. FINDINGS: There are trace bilateral pleural effusions with subsegmental bibasilar ground glass opacities suggesting atelectasis. No pneumoperitoneum is identified. The imaged inferior cardiac chambers are enlarged. There are several low attenuating lesions left hepatic lobe, largest which measures up to 11 mm are too small to characterize on this study. Testicular these lesions would favor cysts or hemangiomas. Prior cholecystectomy. Mild dilation of the common bile duct likely secondary to normal post cholecystectomy state. Spleen is mildly distended. There is severe diffuse pancreatic atrophy. There is an ovoid circumscribed low attenuating lesion of the mid pancreatic body, 3.1 x 2.6 x 3.0 cm in AP, transverse and craniocaudal dimension which previously measured 1.6 x 1.2 cm in AP and transverse dimension. 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 There is nodular thickening of the adrenal glands bilaterally suggesting adrenal hyperplasia. Bilateral kidneys demonstrate no acute abnormality. The ureters are normal in caliber. There is mild amount of air within the nondependent urinary bladder lumen. The uterus appears age appropriate in size. It is moderate atherosclerotic plaquing of the abdominal aorta and iliac vascularity. There is no bulky retroperitoneal adenopathy. The stomach is fluid-filled and distended. The duodenum and jejunum and proximal ileum are also distended with loops of jejunum noted measuring up to 4.5 cm transversely. Collapsed decreased caliber of small bowel loops within the right lower quadrant are noted with mild interloop edema seen within the lower abdomen and pelvis. There is mild amount of free fluid within the dependent pelvis. Several loops of small bowel are seen adjacent to the right anterior abdominal wall with associated angular loops suggesting underlying adhesions. There is severe sigmoid diverticulosis without definite acute diverticulitis. There are postsurgical changes of the lower right anterior abdominal wall. There is a mild amount of body wall edema. Advanced degenerative changes involve the left greater than right hips. Multilevel facet arthropathy involves the lumbar spine. There is convex left curvature of the lumbar spine. IMPRESSION: 1. Findings suggest partial small bowel obstruction with transitioned collapsed loops of small bowel seen within the right lower quadrant of the abdomen, several of which demonstrate angular morphology suggesting underlying adhesions. There is associated mild amount of interloop edema within the lower abdomen with mild free pelvic fluid, likely reactive. No pneumoperitoneum. Close follow-up is needed. 2. Severe sigmoid diverticular disease without definite evidence of acute diverticulitis. 3. Interval enlargement of a circumscribed cystic lesion of the mid pancreatic body now measuring up to 3.1 cm, previously measuring up to 1.[address] study dated 03/29/2013. Differential considerations would include side branch IPMN and further evaluation with endoscopic ultrasound may be considered. 4. Air within the nondependent urinary bladder lumen may be secondary to recent instrumentation or gas forming organism. Correlate with urinalysis. 5. Trace bilateral pleural effusions. 6. Additional incidental findings as above. The above report was generated using voice recognition software. It may contain grammatical, syntax or spelling errors. Electronically signed by: Soto Evans M.D. 12/24/2016 7:15 AM Dictated Date/Time: 12/24/2016 7:00 AM
[2016-12-24 07:45] LABS: BUN/CREATININE RATIO 23.5 (10-20); CALCIUM 8.8 mg/dl (8.5-10.1); CREATININE 0.63 mg/dl (0.60-1.20); POTASSIUM 3.6 mmol/L (3.5-5.1)
[2016-12-24] MEDS ORDERED: PIPERACILL/TAZOBAC CONSULT ACTIVE PRN (07:45)
[2016-12-24] MEDS ORDERED: PIPERACILL/TAZOBAC IV 3.375 GM in DEXTROSE 5% 100ML IV ONE (08:00)
[2016-12-24] MEDS ORDERED: DILTIAZEM BOLUS / DRIP IV STA (08:58)
[2016-12-24] MEDS: ASPIRIN 81 MG CHEW PO SCH (09:00)
[2016-12-24] MEDS: LISINOPRIL 2.5 MG TAB PO SCH (09:00)
--- NOTE | 2016-12-24 10:54 | Medical Consult ---
Consultation Date of Consultation: Dec 24, 2016. Attending Physician: Brian Ram D.O. History of Present Illness 86 y/o female admitted 3 days ago from [facility] for vomiting, treated for sepsis (? urinary) and A-fib with RVR. Had vomiting again last night, CT shows PSBO. She has dementia, able to answer simple questions. Denies abdominal pain, denies flatus and uncertain of her last BM. H/O appendectomy, CT suggests transition in RLQ. NG was placed last night. Past Medical/Surgical History Medical Problems: (1) ASCVD Status: Chronic (2) Atrial fibrillation Status: Chronic (3) CVA Status: Resolved (4) Depression Status: Chronic (5) GI bleed Status: Resolved (6) Hyperlipidemia Status: Chronic (7) Hypertension Status: Chronic (8) SENILE DEMENTIA UNCOMP Status: Chronic Diastolic CHF Surgical Problems: (1) History of appendectomy Status: Resolved (2) History of cholecystectomy Status: Resolved (3) History of ORIF of left ankle x2 Status: Resolved (4) History of sphincterotomy Status: Resolved Family History FHx: coronary artery disease FATHER FHx: stroke FATHER Hypertension Social History Smoking Status: Never Smoker Smokeless Tobacco Use: No Alcohol Use: none Drug Use: none Marital Status: Housing Status: residential ([facility]) Occupation Status: retired Allergies Coded Allergies: Bupropion (Verified Allergy, Mild, 12/21/16) Carbamazepine (Verified Allergy, Unknown, UNKNOWN, 12/23/16) Sulfa Antibiotics (Verified Allergy, Unknown, UNKNOWN, 12/23/16) Venlafaxine (Verified Allergy, Unknown, UNKNOWN, 12/23/16) Lorazepam (Verified Adverse Reaction, Intermediate, HALLUCINATIONS, RESTLESNESS, 06/08/14) FAMILY PROVIDED INFORMATION. Anesthetics, Halogenated (Verified Adverse Reaction, Mild, GENERAL ANESTHESIA-SEVERE INSOMNIA, 06/08/14) Zolpidem (Verified Adverse Reaction, Mild, HALLUCINATIONS, 12/21/16) Current Inpatient Medications Current Inpatient Medications Medications (Trade) Dose Ordered Sig/Jonah Route Start Time Stop Time Status Last Admin Dose Admin Heparin Sodium (Porcine) (Heparin Sq 5000 Unit/0.5ml) 5,000 unit Q8 SQ 12/21/16 22:00 01/20/17 21:59 12/24/16 06:38 5,000 UNIT Sodium Chloride 1,000 ml @ 100 mls/hr Q10H IV 12/21/16 13:01 01/20/17 13:00 12/24/16 02:10 100 MLS/HR Acetaminophen (Tylenol Tab) 650 mg Q4H PRN PO 12/21/16 13:15 01/20/17 13:14 Al Hydrox/Mg Hydrox/Simethicone (Maalox Max Susp) 15 ml Q4H PRN PO 12/21/16 13:15 01/20/17 13:14 Magnesium Hydroxide (Milk Of Magnesia Susp) 30 ml Q12H PRN PO 12/21/16 13:15 01/20/17 13:14 Ondansetron HCl (Zofran Inj) 4 mg Q6H PRN IV 12/21/16 13:15 01/20/17 13:14 12/23/16 23:43 4 MG Polyethylene (Miralax Powder Packet) 17 gm DAILY PRN PO 12/21/16 13:15 01/20/17 13:14 Aspirin (Aspirin Chew) 20.25 mg DAILY PO 12/22/16 09:00 01/21/17 08:59 12/23/16 07:48 20.25 MG Lisinopril (Zestril Tab) 2.5 mg QAM PO 12/22/16 09:00 01/21/17 08:59 12/23/16 07:54 2.5 MG Vitamin B Complex/ Vit C/Folic Acid (Nephrocaps) 1 cap DAILY PO 12/22/16 09:00 01/21/17 08:59 12/23/16 07:49 1 CAP Heparin Sodium (Porcine) (Heparin 10 Unit/ ml 5 ml Flush) 5 ml PRN PRN FLUSH 12/21/16 19:15 01/20/17 19:14 Diltiazem HCl (Dilacor Xr Cap) 180 mg QAM PO 12/24/16 09:00 01/23/17 08:59 Hydralazine HCl (HydrALAZINE INJ) 10 mg Q4 PRN IV. 12/23/16 12:00 01/22/17 11:59 12/24/16 00:40 10 MG Ioversol (Optiray 320) 100 ml UD PRN IV 12/24/16 02:00 12/28/16 01:59 Metoprolol Tartrate (Lopressor Iv) 5 mg Q4H PRN IV 12/24/16 05:30 01/23/17 05:29 Piperacillin Sod/ Tazobactam Sod 3.375 gm/Dextrose 115 ml @ 28.75 mls/ hr Q8H IV 12/24/16 14:00 01/03/17 13:59 Piperacillin Sod/ Tazobactam Sod (Consult) 1 ea UD PRN N/A 12/24/16 07:45 01/23/17 07:44 Diltiazem HCl 125 mg/Dextrose 125 ml @ 0 mls/hr Q0M PRN IV 12/24/16 09:30 01/23/17 09:29 Review of Systems Abdomen: No pain Physical Exam Date Time Temp Pulse Resp B/P (MAP) Pulse Ox O2 Delivery O2 Flow Rate FiO2 12/24/16 08:00 Nasal Cannula 2.0 12/24/16 07:46 36.8 88 18 124/72 (89) 96 12/24/16 04:59 36.4 107 18 155/89 (111) 96 Nasal Cannula 2.0 12/24/16 04:00 Nasal Cannula 2.0 12/24/16 02:09 132 155/83 12/24/16 01:35 36.8 125 20 153/88 (109) 94 Nasal Cannula 2.0 12/24/16 00:38 190/106 (134) 12/23/16 23:59 Nasal Cannula 2.0 12/23/16 23:42 37.1 101 20 184/109 (134) 98 Nasal Cannula 2.0 12/23/16 20:00 Nasal Cannula 2.0 12/23/16 19:53 110 181/103 12/23/16 19:26 37.0 105 18 111/67 (82) 97 12/23/16 16:00 97 Nasal Cannula 2.0 12/23/16 15:49 37.1 108 22 172/92 (118) 96 Nasal Cannula 2.0 12/23/16 12:18 36.8 87 18 191/109 (136) 96 12/23/16 12:00 97 Nasal Cannula 2.0 General Appearance: no apparent distress ENT: + pertinent finding (NGT, 1300 cc last night, 200 so far this AM past 3 hrs, brown-green) Respiratory/Chest: lungs clear Cardiovascular: + tachycardia Abdomen/GI: non tender, soft, + distended (slighlty) Neurologic/Psych: alert Skin: warm/dry Laboratory Results Last 24 Hours Test 12/24/16 03:49 12/24/16 06:17 Bedside Glucose 189 mg/dl White Blood Count 19.55 K/uL Red Blood Count 5.07 M/uL Hemoglobin 16.2 g/dL Hematocrit 47.3 % Mean Corpuscular Volume 93.3 fL Mean Corpuscular Hemoglobin 32.0 pg Mean Corpuscular Hemoglobin Concent 34.2 g/dl RDW Standard Deviation 45.6 fL RDW Coefficient of Variation 13.4 % Platelet Count 276 K/uL Mean Platelet Volume 11.0 fL Sodium Level 138 mmol/L Potassium Level 3.6 mmol/L Chloride Level 105 mmol/L Carbon Dioxide Level 25 mmol/L Anion Gap 8.0 mmol/L Blood Urea Nitrogen 15 mg/dl Creatinine 0.63 mg/dl Est Creatinine Clear Calc Drug Dose 61.2 ml/min Estimated GFR () 93.5 Estimated GFR (Non- 80.6 BUN/Creatinine Ratio 23.5 Random Glucose 166 mg/dl Calcium Level 8.8 mg/dl CT IMPRESSION: 1. Findings suggest partial small bowel obstruction with transitioned collapsed loops of small bowel seen within the right lower quadrant of the abdomen, several of which demonstrate angular morphology suggesting underlying adhesions. There is associated mild amount of interloop edema within the lower abdomen with mild free pelvic fluid, likely reactive. No pneumoperitoneum. Close follow-up is needed. 2. Severe sigmoid diverticular disease without definite evidence of acute diverticulitis. 3. Interval enlargement of a circumscribed cystic lesion of the mid pancreatic body now measuring up to 3.1 cm, previously measuring up to 1.[address] study dated 03/29/2013. Differential considerations would include side branch IPMN and further evaluation with endoscopic ultrasound may be considered. 4. Air within the nondependent urinary bladder lumen may be secondary to recent instrumentation or gas forming organism. Correlate with urinalysis. 5. Trace bilateral pleural effusions. 6. Additional incidental findings as above. The above report was generated using voice recognition software. It may contain grammatical, syntax or spelling errors. Electronically signed by: Soto Evans M.D. 12/24/2016 7:15 AM Assessment & Plan PSBO Seems improved after NGT. Exam is benign. Would continue NG, repeat XR in AM. Will follow, she is s/p appendectomy in 2004 followed by incisional hernia repair (Kugel patch) in 2005.
--- NOTE | 2016-12-24 10:55 | Progress Note ---
Subjective Date of Service: Dec 24, 2016. Subjective Pt evaluation today including: conversation w/ patient, physical exam, chart review, lab review, review of studies, review of inpatient medication list Resting comfortably in bed NGT placed overnight for partial bowel obstruction Significant output thus far of bilious material Pt denies any abd pain or any other concerns Problem List Medical Problems: (1) Atrial fibrillation and flutter Status: Acute (2) Atrial fibrillation with RVR Status: Acute (3) UTI (urinary tract infection) Status: Acute Review of Systems Constitutional: No fever, No chills, No sweats, No weakness ENT: No hearing loss, No unusual epistaxis, No nasal symptoms, No sore throat Respiratory: No cough, No sputum, No wheezing, No shortness of breath Cardiac: No chest pain, No orthopnea, No PND, No edema Abdomen: No pain, No nausea, No vomiting, No diarrhea, No constipation Musculoskeletal: No joint pain, No muscle pain, No swelling, No calf pain Female : No dysuria, No urinary frequency, No hematuria, No incontinence Neurologic: No memory loss, No paralysis, No weakness, No numbness/tingling Psychiatric: No depression symptoms, No anhedonism, No anxiety, No insomnia Skin: No rash, No itch Objective Vital Signs Date Time Temp Pulse Resp B/P (MAP) Pulse Ox O2 Delivery O2 Flow Rate FiO2 12/24/16 08:00 Nasal Cannula 2.0 12/24/16 07:46 36.8 88 18 124/72 (89) 96 12/24/16 04:59 36.4 107 18 155/89 (111) 96 Nasal Cannula 2.0 12/24/16 04:00 Nasal Cannula 2.0 12/24/16 02:09 132 155/83 12/24/16 01:35 36.8 125 20 153/88 (109) 94 Nasal Cannula 2.0 12/24/16 00:38 190/106 (134) 12/23/16 23:59 Nasal Cannula 2.0 12/23/16 23:42 37.1 101 20 184/109 (134) 98 Nasal Cannula 2.0 12/23/16 20:00 Nasal Cannula 2.0 12/23/16 19:53 110 181/103 12/23/16 19:26 37.0 105 18 111/67 (82) 97 12/23/16 16:00 97 Nasal Cannula 2.0 12/23/16 15:49 37.1 108 22 172/92 (118) 96 Nasal Cannula 2.0 12/23/16 12:18 36.8 87 18 191/109 (136) 96 12/23/16 12:00 97 Nasal Cannula 2.0 Physical Exam General Appearance: WD/WN, + mild distress Eyes: normal inspection, PERRL, EOMI, sclerae normal Neck: supple, no adenopathy, thyroid normal, no JVD Respiratory/Chest: chest non-tender, lungs clear, normal breath sounds, no respiratory distress Cardiovascular: no JVD, no murmur, + tachycardia, + irregularly irregular Abdomen: normal bowel sounds, non tender, soft, no organomegaly Neurologic/Psychiatric: no motor/sensory deficits, alert, normal mood/affect Skin: normal color, warm/dry, no rash Lymphatic: no adenopathy Laboratory Results Last 24 Hours Test 12/24/16 03:49 12/24/16 06:17 Bedside Glucose 189 mg/dl White Blood Count 19.55 K/uL Red Blood Count 5.07 M/uL Hemoglobin 16.2 g/dL Hematocrit 47.3 % Mean Corpuscular Volume 93.3 fL Mean Corpuscular Hemoglobin 32.0 pg Mean Corpuscular Hemoglobin Concent 34.2 g/dl RDW Standard Deviation 45.6 fL RDW Coefficient of Variation 13.4 % Platelet Count 276 K/uL Mean Platelet Volume 11.0 fL Sodium Level 138 mmol/L Potassium Level 3.6 mmol/L Chloride Level 105 mmol/L Carbon Dioxide Level 25 mmol/L Anion Gap 8.0 mmol/L Blood Urea Nitrogen 15 mg/dl Creatinine 0.63 mg/dl Est Creatinine Clear Calc Drug Dose 61.2 ml/min Estimated GFR () 93.5 Estimated GFR (Non- 80.6 BUN/Creatinine Ratio 23.5 Random Glucose 166 mg/dl Calcium Level 8.8 mg/dl Assessment and Plan 86 y/o female with a history of a-fib, HTN, HLD, CVA, diastolic CHF, depression and dementia who presented to the ED on 12/21 from [facility] with vomiting x 2 days. Pt afebrile on arrival. Tachycardic, in a-fib with RVR and hypoxic with O2 sat 88% on room air. Pt does not typically wear oxygen although son states she is supposed to. The patient was given Lopressor 5 mg IV x 1 with no control of rate. Pt then placed on diltiazem drip with 20 mg bolus and is now rate controlled, BP stable. EKG shows a-fib with RVR, no ischemic changes. CXR suggestive of pulmonary edema. WBC elevated at 24.02. POC lactic acid 2.96. Cardiac enzymes negative. UA 4+ bacteria but also high in epithelial cells. Pt given IVF and Rocephin in ED. Sepsis likely UTI -Admitted to telemetry -Blood cultures x 2 NGTD, although pt did receive 1 dose Rocephin before they could be drawn -Urine culture currently growing out E Coli -Repeat lactic acid resolved at 1.7 -C. diff and stool cultures neg -NSS at 100 cc/hr. Monitor for fluid overload due to h/o CHF -Zosyn IV empirically to cover both urinary and GI sources pending cultures Partial SBO - Pt reported worsening biolious vomiting -CT abd/pelvis 12/23 depicted PSBO, kept NPO and started on IV zosyn -Gen surg consulted A-fib with RVR--Tachycardic. Started back on dilt drip -EKG q am and prn with chest pain HTN, HLD, h/o CVA--stable -Continue lisinopril 2.5 mg PO qd Chronic diastolic CHF--stable, no acute exacerbation. CXR suggests pulmonary edema but does not sound wet on exam. More likely dehydrated due to vomiting/ sepsis -Hold off Lasix for now -Daily weights, I's & O's GI prophylaxis -Maalox Max 15 mL PO q4h prn dyspepsia -Milk of magnesia 30 mL PO q6h prn constipation -Miralax 17 gm PO qd prn constipation -Zofran 4 mg IV q6h prn nausea DVT prophylaxis -Heparin 5000 units SC q8h -MANUEL carpenter and Sharifa Code Status -Level V, DO NOT RESUSCITATE
[2016-12-24] MEDS: NEPHROCAPS PO SCH (10:58)
[2016-12-24] MEDS: DILTIAZEM HCL 180 MG ER CAP PO SCH (10:58)
[2016-12-24] MEDS: DILTIAZEM HCL INJ 125 MG in DEXTROSE 5% 100ML IV PRN (11:31)
[2016-12-24] MEDS: PIPERACILL/TAZOBAC IV 3.375 GM in DEXTROSE 5% 100ML 100 ML IV SCH ×2 (14:21→20:55)
--- NOTE | 2016-12-24 19:18 | DIAGNOSTIC IMAGING REPORT ---
KUB CLINICAL HISTORY: Nasogastric tube placement. COMPARISON STUDY: CT of the abdomen and pelvis December 24, 2016 2:15 AM. FINDINGS: The tip of the nasogastric tube is within the mid body of the stomach. A left pleural effusion is incidentally noted with left basilar opacity. Mildly dilated loop of small bowel is noted. The pelvis was not included on the examination. IMPRESSION: Tip of nasogastric tube within the body of the stomach. Electronically signed by: Milan Cardenas M.D. 12/24/2016 7:17 PM Dictated Date/Time: 12/24/2016 7:15 PM
[2016-12-25] VITALS (10 sets, daily range): BP systolic 156–188; BP diastolic 74–92; PULSE 68–87; TEMP 36.8–37.4; O2SAT 90–99
[2016-12-25] MEDS: SODIUM CHLORIDE 0.9% 1000ML 1,000 ML IV SCH ×3 (00:31→17:47)
[2016-12-25] MEDS: DILTIAZEM HCL INJ 125 MG in DEXTROSE 5% 100ML IV PRN (00:35)
[2016-12-25] MEDS: HEPARIN SOD 5000 UNIT/0.5 ML CARP SQ SCH ×3 (06:01→21:32)
[2016-12-25] MEDS: PIPERACILL/TAZOBAC IV 3.375 GM in DEXTROSE 5% 100ML 100 ML IV SCH ×3 (06:02→21:31)
[2016-12-25 07:57] LABS: BASO % 0.2 %; BASO ABS # 0.03 K/uL (0-0.2); COMPLETE YES; EOS % 0.7 %; IG% 0.5 %; LYMPH % 6.1 %; LYMPH ABS # 0.89 K/uL (1.2-3.4); MEAN CELL VOLUME 96.1 fL (80-100); MEAN CORPUSCULAR HEMOGLOBIN 30.3 pg (25-34); MEAN CORPUSCULAR HGB CONC 31.5 g/dl (32-36); MEAN PLATELET VOLUME 10.3 fL (7.4-10.4); MONO % 7.1 %; NEUT % 85.4 %; PLATELET COUNT 238 K/uL (130-400); RED BLOOD COUNT 4.89 M/uL (4.2-5.4); WHITE BLOOD COUNT 14.59 K/uL (4.8-10.8)
[2016-12-25 08:25] LABS: BUN/CREATININE RATIO 23.9 (10-20); CALCIUM 8.1 mg/dl (8.5-10.1); CREATININE 0.77 mg/dl (0.60-1.20); POTASSIUM 3.4 mmol/L (3.5-5.1)
--- NOTE | 2016-12-25 08:30 | DIAGNOSTIC IMAGING REPORT ---
CHEST AND ABDOMEN 2 VIEWS HISTORY: Small bowel obstruction. Follow-up. COMPARISON: KUB 12/24/2016. Abdomen and pelvis CT 12/24/2016. FINDINGS: Nasogastric tube terminates in the stomach. Cardiomegaly with pulmonary edema and small bilateral pleural effusions are noted. No pneumoperitoneum. No pneumatosis. Prior cholecystectomy. There are few mildly dilated loops of small bowel seen within the left side the abdomen. This contains small fluid levels. These measure up to 3.7 cm in diameter. There is gas and stool seen within the colon. Therefore, these findings favor a persistent partial small bowel obstruction. IMPRESSION: 1. Persistent partial small bowel obstruction pattern. 2. Pulmonary edema and small bilateral pleural effusions. 3. Nasogastric tube terminates in the stomach. Electronically signed by: Alexander Adams M.D. 12/25/2016 8:29 AM Dictated Date/Time: 12/25/2016 8:26 AM
[2016-12-25] MEDS: DILTIAZEM HCL 180 MG ER CAP PO SCH (08:43)
[2016-12-25] MEDS: ASPIRIN 81 MG CHEW PO SCH (08:43)
[2016-12-25] MEDS: NEPHROCAPS PO SCH (08:43)
[2016-12-25] MEDS: LISINOPRIL 2.5 MG TAB PO SCH (08:44)
[2016-12-25] MEDS ORDERED: POTASSIUM CHLR 10 MEQ / WTR 10 MEQ in PREMIXED WATER 100 ML IV ONE (09:30)
--- NOTE | 2016-12-25 12:41 | Surgery Progress Note ---
Surgery Progress Note Date of Service Dec 25, 2016. 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 no clinical changes. NGT output decreased. Objective Vital Signs: Date Time Temp Pulse Resp B/P (MAP) Pulse Ox O2 Delivery O2 Flow Rate FiO2 12/25/16 12:12 99 Nasal Cannula 2.0 12/25/16 12:09 36.8 77 20 169/89 (115) 99 12/25/16 08:30 96 Nasal Cannula 2.0 12/25/16 07:33 36.8 81 20 158/74 (102) 96 Nasal Cannula 12/25/16 04:39 87 159/81 (107) 12/25/16 04:00 36.8 77 18 188/85 (119) 97 Nasal Cannula 2.0 12/25/16 04:00 Nasal Cannula 2.0 12/25/16 00:01 Nasal Cannula 2.0 12/25/16 00:00 37.4 68 20 157/90 (112) 90 Room Air 12/24/16 20:00 Nasal Cannula 2.0 12/24/16 18:57 37.2 76 20 152/73 (99) 92 Nasal Cannula 12/24/16 16:00 Nasal Cannula 2.0 12/24/16 15:41 37.0 84 17 158/89 (112) 95 Nasal Cannula 3.0 Physical Exam: nasogastric drainage (bilious but decreased) General Appearance: no apparent distress Respiratory/Chest: no respiratory distress, no accessory muscle use Abdomen: non tender, soft, + distended Laboratory Results: Results Past 24 Hours Test 12/24/16 16:21 12/25/16 06:54 12/25/16 07:34 Range/Units Bedside Glucose 141 136 70-90 mg/dl White Blood Count 14.59 4.8-10.8 K/uL Red Blood Count 4.89 4.2-5.4 M/uL Hemoglobin 14.8 12.0-16.0 g/dL Hematocrit 47.0 37-47 % Mean Corpuscular Volume 96.1 80-100 fL Mean Corpuscular Hemoglobin 30.3 25-34 pg Mean Corpuscular Hemoglobin Concent 31.5 32-36 g/dl Platelet Count 238 130-400 K/uL Mean Platelet Volume 10.3 7.4-10.4 fL Neutrophils (%) (Auto) 85.4 % Lymphocytes (%) (Auto) 6.1 % Monocytes (%) (Auto) 7.1 % Eosinophils (%) (Auto) 0.7 % Basophils (%) (Auto) 0.2 % Neutrophils # (Auto) 12.46 1.4-6.5 K/uL Lymphocytes # (Auto) 0.89 1.2-3.4 K/uL Monocytes # (Auto) 1.03 0.11-0.59 K/uL Eosinophils # (Auto) 0.10 0-0.5 K/uL Basophils # (Auto) 0.03 0-0.2 K/uL RDW Standard Deviation 47.4 36.4-46.3 fL RDW Coefficient of Variation 13.5 11.5-14.5 % Immature Granulocyte % (Auto) 0.5 % Immature Granulocyte # (Auto) 0.08 0.00-0.02 K/uL Sodium Level 141 136-145 mmol/L Potassium Level 3.4 3.5-5.1 mmol/L Chloride Level 108 98-107 mmol/L Carbon Dioxide Level 27 21-32 mmol/L Anion Gap 6.0 3-11 mmol/L Blood Urea Nitrogen 18 7-18 mg/dl Creatinine 0.77 0.60-1.20 mg/dl Est Creatinine Clear Calc Drug Dose 51.5 ml/min Estimated GFR () 80.5 Estimated GFR (Non- 69.4 BUN/Creatinine Ratio 23.9 10-20 Random Glucose 135 70-99 mg/dl Calcium Level 8.1 8.5-10.1 mg/dl Assessment & Plan pSBO vs SBO discussed with radiology. will put some contrast down NGT and perform serial KUB's to eval obstruction discussed with pt's son Arsenio...would be willing to consent for surgery if study positive for definite complete SBO clinically stable at the moment obviously high risk surgical candidate and surgery would be last resort.
--- NOTE | 2016-12-25 13:04 | Progress Note ---
Subjective Date of Service: Dec 25, 2016. Subjective Pt evaluation today including: conversation w/ patient, physical exam, chart review, lab review, review of studies, review of inpatient medication list Pt seen and examined Resting comfortably in bed NGT in place Significant drainage at this time noted Problem List Medical Problems: (1) Atrial fibrillation and flutter Status: Acute (2) Atrial fibrillation with RVR Status: Acute (3) UTI (urinary tract infection) Status: Acute Review of Systems Constitutional: No fever, No chills, No sweats, No weakness ENT: No hearing loss, No unusual epistaxis, No nasal symptoms, No sore throat Respiratory: No cough, No sputum, No wheezing, No shortness of breath Cardiac: No chest pain, No orthopnea, No PND, No edema Abdomen: No pain, No nausea, No vomiting, No diarrhea, No constipation Musculoskeletal: No joint pain, No muscle pain, No swelling, No calf pain Female : No dysuria, No urinary frequency, No hematuria, No incontinence Neurologic: No memory loss, No paralysis, No weakness, No numbness/tingling Psychiatric: No depression symptoms, No anhedonism, No anxiety, No insomnia Skin: No rash, No itch Objective Vital Signs Date Time Temp Pulse Resp B/P (MAP) Pulse Ox O2 Delivery O2 Flow Rate FiO2 12/25/16 12:12 99 Nasal Cannula 2.0 12/25/16 12:09 36.8 77 20 169/89 (115) 99 12/25/16 08:30 96 Nasal Cannula 2.0 12/25/16 07:33 36.8 81 20 158/74 (102) 96 Nasal Cannula 12/25/16 04:39 87 159/81 (107) 12/25/16 04:00 36.8 77 18 188/85 (119) 97 Nasal Cannula 2.0 12/25/16 04:00 Nasal Cannula 2.0 12/25/16 00:01 Nasal Cannula 2.0 12/25/16 00:00 37.4 68 20 157/90 (112) 90 Room Air 12/24/16 20:00 Nasal Cannula 2.0 12/24/16 18:57 37.2 76 20 152/73 (99) 92 Nasal Cannula 12/24/16 16:00 Nasal Cannula 2.0 12/24/16 15:41 37.0 84 17 158/89 (112) 95 Nasal Cannula 3.0 Physical Exam General Appearance: WD/WN, no apparent distress Eyes: normal inspection, PERRL, EOMI, sclerae normal Neck: supple, no adenopathy, thyroid normal, no JVD Respiratory/Chest: chest non-tender, lungs clear, normal breath sounds, no respiratory distress Cardiovascular: regular rate, rhythm, no gallop, no JVD, no murmur Abdomen: normal bowel sounds, non tender, soft, no organomegaly Neurologic/Psychiatric: no motor/sensory deficits, alert, normal mood/affect Skin: normal color, warm/dry, no rash Lymphatic: no adenopathy Laboratory Results Last 24 Hours Test 12/24/16 16:21 12/25/16 06:54 12/25/16 07:34 Bedside Glucose 141 mg/dl 136 mg/dl White Blood Count 14.59 K/uL Red Blood Count 4.89 M/uL Hemoglobin 14.8 g/dL Hematocrit 47.0 % Mean Corpuscular Volume 96.1 fL Mean Corpuscular Hemoglobin 30.3 pg Mean Corpuscular Hemoglobin Concent 31.5 g/dl Platelet Count 238 K/uL Mean Platelet Volume 10.3 fL Neutrophils (%) (Auto) 85.4 % Lymphocytes (%) (Auto) 6.1 % Monocytes (%) (Auto) 7.1 % Eosinophils (%) (Auto) 0.7 % Basophils (%) (Auto) 0.2 % Neutrophils # (Auto) 12.46 K/uL Lymphocytes # (Auto) 0.89 K/uL Monocytes # (Auto) 1.03 K/uL Eosinophils # (Auto) 0.10 K/uL Basophils # (Auto) 0.03 K/uL RDW Standard Deviation 47.4 fL RDW Coefficient of Variation 13.5 % Immature Granulocyte % (Auto) 0.5 % Immature Granulocyte # (Auto) 0.08 K/uL Sodium Level 141 mmol/L Potassium Level 3.4 mmol/L Chloride Level 108 mmol/L Carbon Dioxide Level 27 mmol/L Anion Gap 6.0 mmol/L Blood Urea Nitrogen 18 mg/dl Creatinine 0.77 mg/dl Est Creatinine Clear Calc Drug Dose 51.5 ml/min Estimated GFR () 80.5 Estimated GFR (Non- 69.4 BUN/Creatinine Ratio 23.9 Random Glucose 135 mg/dl Calcium Level 8.1 mg/dl Assessment and Plan 86 y/o female with a history of a-fib, HTN, HLD, CVA, diastolic CHF, depression and dementia who presented to the ED on 12/21 from [facility] with vomiting x 2 days. Pt afebrile on arrival. Tachycardic, in a-fib with RVR and hypoxic with O2 sat 88% on room air. Pt does not typically wear oxygen although son states she is supposed to. The patient was given Lopressor 5 mg IV x 1 with no control of rate. Pt then placed on diltiazem drip with 20 mg bolus and is now rate controlled, BP stable. EKG shows a-fib with RVR, no ischemic changes. CXR suggestive of pulmonary edema. WBC elevated at 24.02. POC lactic acid 2.96. Cardiac enzymes negative. UA 4+ bacteria but also high in epithelial cells. Pt given IVF and Rocephin in ED. Sepsis likely UTI -Admitted to telemetry -Blood cultures x 2 NGTD, although pt did receive 1 dose Rocephin before they could be drawn -Urine culture currently growing out E Coli -Repeat lactic acid resolved at 1.7 -C. diff and stool cultures neg -NSS at 100 cc/hr. Monitor for fluid overload due to h/o CHF -Zosyn IV empirically to cover both urinary and GI sources Partial SBO - Pt reported worsening bilious vomiting -CT abd/pelvis 12/23 depicted PSBO, kept NPO and started on IV zosyn -Gen surg consulted, KUB shows improvement in PSBO, no further recs A-fib with RVR--Tachycardic. Started back on dilt drip -EKG q am and prn with chest pain HTN, HLD, h/o CVA--stable -Continue lisinopril 2.5 mg PO qd Chronic diastolic CHF--stable, no acute exacerbation. CXR suggests pulmonary edema but does not sound wet on exam. More likely dehydrated due to vomiting/ sepsis -Hold off Lasix for now -Daily weights, I's & O's GI prophylaxis -Maalox Max 15 mL PO q4h prn dyspepsia -Milk of magnesia 30 mL PO q6h prn constipation -Miralax 17 gm PO qd prn constipation -Zofran 4 mg IV q6h prn nausea DVT prophylaxis -Heparin 5000 units SC q8h -MANUEL Rees Code Status -Level V, DO NOT RESUSCITATE
--- NOTE | 2016-12-25 18:30 | DIAGNOSTIC IMAGING REPORT ---
KUB CLINICAL HISTORY: Small bowel obstruction. FINDINGS: 2 AP, portable, supine abdominal radiographs are compared performed earlier the same day 12/25/2016 and correlated with abdominal CT dated 12/24/2016. An enteric tube is unchanged in position. Enteric contrast is present within the stomach and proximal small bowel loops. There is evidence of persistent small bowel obstruction. There are small bowel diverticula outlined by contrast. No evidence of intraperitoneal free air is seen on these supine images. Cholecystectomy clips are noted in the right upper quadrant. The skeletal structures are osteopenic. Lumbar sacral spondylosis is observed. IMPRESSION: 1. Findings are consistent with persistent small bowel obstruction. 2. Small bowel diverticula are incidentally noted. Electronically signed by: Ashish Bullock M.D. 12/25/2016 6:29 PM Dictated Date/Time: 12/25/2016 6:26 PM
[2016-12-25] MEDS: METOPROLOL TARTRATE 1 MG/ML VIAL IV PRN (19:18)
[2016-12-26] VITALS (11 sets, daily range): BP systolic 127–191; BP diastolic 67–93; PULSE 59–80; TEMP 36.3–37.1; O2SAT 95–100
[2016-12-26] MEDS: HydrALAZINE HCL 20 MG/ML VIAL IV. PRN ×2 (00:18→23:34)
[2016-12-26] MEDS: DILTIAZEM HCL INJ 125 MG in DEXTROSE 5% 100ML IV PRN (00:20)
[2016-12-26] MEDS: SODIUM CHLORIDE 0.9% 1000ML 1,000 ML IV SCH ×2 (02:59→11:57)
[2016-12-26] MEDS: HEPARIN SOD 5000 UNIT/0.5 ML CARP SQ SCH ×3 (05:24→20:36)
[2016-12-26 06:59] LABS: BASO % 0.2 %; BASO ABS # 0.03 K/uL (0-0.2); COMPLETE YES; EOS % 0.7 %; HEMATOCRIT 47.3 % (37-47); IG% 0.5 %; LYMPH % 9.9 %; LYMPH ABS # 1.66 K/uL (1.2-3.4); MEAN CELL VOLUME 94.2 fL (80-100); MEAN CORPUSCULAR HEMOGLOBIN 31.5 pg (25-34); MEAN CORPUSCULAR HGB CONC 33.4 g/dl (32-36); MONO % 2.2 %; NEUT % 86.5 %; PLATELET COUNT 225 K/uL (130-400); RED BLOOD COUNT 5.02 M/uL (4.2-5.4); WHITE BLOOD COUNT 16.77 K/uL (4.8-10.8)
[2016-12-26] MEDS: PIPERACILL/TAZOBAC IV 3.375 GM in DEXTROSE 5% 100ML 100 ML IV SCH (08:15)
[2016-12-26] MEDS: NEPHROCAPS PO SCH (08:15)
[2016-12-26] MEDS: DILTIAZEM HCL 180 MG ER CAP PO SCH (08:15)
[2016-12-26] MEDS: LISINOPRIL 2.5 MG TAB PO SCH (08:16)
[2016-12-26] MEDS: ASPIRIN 81 MG CHEW PO SCH (08:16)
[2016-12-26 08:18] LABS: BUN/CREATININE RATIO 24.3 (10-20); CALCIUM 8.1 mg/dl (8.5-10.1); CREATININE 0.6 mg/dl (0.60-1.20); POTASSIUM 3.3 mmol/L (3.5-5.1)
[2016-12-26] MEDS ORDERED: POTASSIUM CHLR 20 MEQ / WTR 20 MEQ in PREMIXED WATER 100 ML IV STA (08:52)
--- NOTE | 2016-12-26 09:07 | Surgery Progress Note ---
Surgery Progress Note Date of Service Dec 26, 2016. Subjective No bowel movement Objective Vital Signs: Date Time Temp Pulse Resp B/P (MAP) Pulse Ox O2 Delivery O2 Flow Rate FiO2 12/26/16 06:49 37.1 70 18 153/83 (106) 99 2.0 12/26/16 04:24 36.3 80 16 166/82 (110) 95 12/26/16 04:00 Nasal Cannula 2.0 12/26/16 01:19 77 138/72 (94) 12/26/16 00:10 37.0 60 16 191/87 (121) 96 12/26/16 00:00 Nasal Cannula 2.0 12/25/16 20:00 Nasal Cannula 2.0 12/25/16 19:26 164/80 (108) 12/25/16 19:18 70 187/92 12/25/16 19:10 37.1 70 18 187/92 (123) 95 Nasal Cannula 2.0 12/25/16 16:00 Nasal Cannula 2.0 12/25/16 14:45 36.9 75 18 156/84 (108) 95 Nasal Cannula 2.0 12/25/16 12:12 99 Nasal Cannula 2.0 12/25/16 12:09 36.8 77 20 169/89 (115) 99 Physical Exam: nasogastric drainage (80 cc overnight) Abdomen: non tender, soft Laboratory Results: Results Past 24 Hours Test 12/25/16 19:15 12/26/16 06:29 12/26/16 07:40 Range/Units Bedside Glucose 104 70-90 mg/dl White Blood Count 16.77 4.8-10.8 K/uL Red Blood Count 5.02 4.2-5.4 M/uL Hemoglobin 15.8 12.0-16.0 g/dL Hematocrit 47.3 37-47 % Mean Corpuscular Volume 94.2 80-100 fL Mean Corpuscular Hemoglobin 31.5 25-34 pg Mean Corpuscular Hemoglobin Concent 33.4 32-36 g/dl Platelet Count 225 130-400 K/uL Mean Platelet Volume 11.0 7.4-10.4 fL Neutrophils (%) (Auto) 86.5 % Lymphocytes (%) (Auto) 9.9 % Monocytes (%) (Auto) 2.2 % Eosinophils (%) (Auto) 0.7 % Basophils (%) (Auto) 0.2 % Neutrophils # (Auto) 14.51 1.4-6.5 K/uL Lymphocytes # (Auto) 1.66 1.2-3.4 K/uL Monocytes # (Auto) 0.37 0.11-0.59 K/uL Eosinophils # (Auto) 0.11 0-0.5 K/uL Basophils # (Auto) 0.03 0-0.2 K/uL RDW Standard Deviation 46.6 36.4-46.3 fL RDW Coefficient of Variation 13.5 11.5-14.5 % Immature Granulocyte % (Auto) 0.5 % Immature Granulocyte # (Auto) 0.09 0.00-0.02 K/uL Sodium Level 140 136-145 mmol/L Potassium Level 3.3 3.5-5.1 mmol/L Chloride Level 106 98-107 mmol/L Carbon Dioxide Level 27 21-32 mmol/L Anion Gap 7.0 3-11 mmol/L Blood Urea Nitrogen 15 7-18 mg/dl Creatinine 0.60 0.60-1.20 mg/dl Est Creatinine Clear Calc Drug Dose 66.0 ml/min Estimated GFR () 95.0 Estimated GFR (Non- 82.0 BUN/Creatinine Ratio 24.3 10-20 Random Glucose 125 70-99 mg/dl Calcium Level 8.1 8.5-10.1 mg/dl Assessment & Plan PSBO NG output down although KUB last night suggests persistent SBO, await morning XR with contrast
[2016-12-26] MEDS: CEFTRIAXONE SOD INJ 2,000 MG in DEXTROSE 5% 50ML 50 ML IV SCH (09:51)
[2016-12-26] MEDS: POTASSIUM CHLORIDE 20 MEQ/15 ML UDC PO SCH (09:52)
--- NOTE | 2016-12-26 10:49 | DIAGNOSTIC IMAGING REPORT ---
KUB HISTORY: Small bowel obstruction. COMPARISON: KUB 12/25/2016. FINDINGS: There again noted multiple mildly dilated contrast-filled loops of small bowel. This is similar to the prior study. However, contrast has reached the colon. Therefore, this is consistent with a partial bowel obstruction. Nasogastric tube terminates in the stomach. No renal calculi. No ureteral calculi. No pneumoperitoneum or pneumatosis. IMPRESSION: Mildly dilated loops of small bowel are again noted. The contrast has reached the colon. Therefore, this is consistent with a partial small bowel obstruction. Electronically signed by: Alexander Adams M.D. 12/26/2016 10:48 AM Dictated Date/Time: 12/26/2016 10:35 AM
[2016-12-26] MEDS: METRONIDAZOLE / NSS 500 MG in PREMIXED NSS 100 ML IV SCH ×2 (11:56→20:34)
[2016-12-26] MEDS: METHYLPREDNISOLONE IV 60 MG in SYRINGE 0 ML IV SCH ×2 (11:56→20:34)
--- NOTE | 2016-12-26 12:19 | Progress Note ---
Subjective Date of Service: Dec 26, 2016. Subjective Pt evaluation today including: conversation w/ patient, conversation w/ family , physical exam, chart review, lab review, review of studies, review of inpatient medication list Resting comfortably in bed No distress noted No events overnight Spoke to son on phone All questions addressed Problem List Medical Problems: (1) Atrial fibrillation and flutter Status: Acute (2) Atrial fibrillation with RVR Status: Acute (3) UTI (urinary tract infection) Status: Acute Review of Systems Constitutional: No fever, No chills, No sweats, No weight loss, No weakness Eyes: No worsening of vision, No eye pain, No redness, No discharge Respiratory: No cough, No sputum, No wheezing, No shortness of breath, No dyspnea on exertion Cardiac: No chest pain, No PND, No edema, No claudication Abdomen: No pain, No vomiting, No diarrhea, No constipation Musculoskeletal: No joint pain, No muscle pain, No swelling, No calf pain Female : No dysuria, No urinary frequency, No hematuria, No incontinence Neurologic: No memory loss, No paralysis, No weakness, No numbness/tingling Psychiatric: No depression symptoms, No anhedonism, No anxiety, No insomnia Endo: No fatigue, No excessive thirst Skin: No rash, No itch Objective Vital Signs Date Time Temp Pulse Resp B/P (MAP) Pulse Ox O2 Delivery O2 Flow Rate FiO2 12/26/16 11:20 37.0 60 18 148/68 (94) 96 Nasal Cannula 2.0 12/26/16 08:00 100 Nasal Cannula 2.0 12/26/16 06:49 37.1 70 18 153/83 (106) 99 2.0 12/26/16 04:24 36.3 80 16 166/82 (110) 95 12/26/16 04:00 Nasal Cannula 2.0 12/26/16 01:19 77 138/72 (94) 12/26/16 00:10 37.0 60 16 191/87 (121) 96 12/26/16 00:00 Nasal Cannula 2.0 12/25/16 20:00 Nasal Cannula 2.0 12/25/16 19:26 164/80 (108) 12/25/16 19:18 70 187/92 12/25/16 19:10 37.1 70 18 187/92 (123) 95 Nasal Cannula 2.0 12/25/16 16:00 Nasal Cannula 2.0 12/25/16 14:45 36.9 75 18 156/84 (108) 95 Nasal Cannula 2.0 Physical Exam General Appearance: WD/WN, no apparent distress Eyes: normal inspection, PERRL, EOMI, sclerae normal Neck: supple, no adenopathy, thyroid normal, no JVD Respiratory/Chest: chest non-tender, lungs clear, normal breath sounds, no respiratory distress Cardiovascular: no edema, no gallop, no JVD, no murmur Abdomen: normal bowel sounds, non tender, soft, no organomegaly Neurologic/Psychiatric: no motor/sensory deficits, alert, normal mood/affect, oriented x 3 Laboratory Results Last 24 Hours Test 12/25/16 19:15 12/26/16 06:29 12/26/16 07:40 Bedside Glucose 104 mg/dl White Blood Count 16.77 K/uL Red Blood Count 5.02 M/uL Hemoglobin 15.8 g/dL Hematocrit 47.3 % Mean Corpuscular Volume 94.2 fL Mean Corpuscular Hemoglobin 31.5 pg Mean Corpuscular Hemoglobin Concent 33.4 g/dl Platelet Count 225 K/uL Mean Platelet Volume 11.0 fL Neutrophils (%) (Auto) 86.5 % Lymphocytes (%) (Auto) 9.9 % Monocytes (%) (Auto) 2.2 % Eosinophils (%) (Auto) 0.7 % Basophils (%) (Auto) 0.2 % Neutrophils # (Auto) 14.51 K/uL Lymphocytes # (Auto) 1.66 K/uL Monocytes # (Auto) 0.37 K/uL Eosinophils # (Auto) 0.11 K/uL Basophils # (Auto) 0.03 K/uL RDW Standard Deviation 46.6 fL RDW Coefficient of Variation 13.5 % Immature Granulocyte % (Auto) 0.5 % Immature Granulocyte # (Auto) 0.09 K/uL Sodium Level 140 mmol/L Potassium Level 3.3 mmol/L Chloride Level 106 mmol/L Carbon Dioxide Level 27 mmol/L Anion Gap 7.0 mmol/L Blood Urea Nitrogen 15 mg/dl Creatinine 0.60 mg/dl Est Creatinine Clear Calc Drug Dose 66.0 ml/min Estimated GFR () 95.0 Estimated GFR (Non- 82.0 BUN/Creatinine Ratio 24.3 Random Glucose 125 mg/dl Calcium Level 8.1 mg/dl Assessment and Plan 86 y/o female with a history of a-fib, HTN, HLD, CVA, diastolic CHF, depression and dementia who presented to the ED on 12/21 from [facility] with vomiting x 2 days. Pt afebrile on arrival. Tachycardic, in a-fib with RVR and hypoxic with O2 sat 88% on room air. Pt does not typically wear oxygen although son states she is supposed to. The patient was given Lopressor 5 mg IV x 1 with no control of rate. Pt then placed on diltiazem drip with 20 mg bolus and is now rate controlled, BP stable. EKG shows a-fib with RVR, no ischemic changes. CXR suggestive of pulmonary edema. WBC elevated at 24.02. POC lactic acid 2.96. Cardiac enzymes negative. UA 4+ bacteria but also high in epithelial cells. Pt given IVF and Rocephin in ED. SBO/?colitis -CT abd/pelvis 12/23 depicted PSBO, kept NPO and started on IV zosyn, switched to IV rocephin 2 grams daily in addition to flagyl 500 mg IV TID -Gen surg consulted, repeat KUB, may require hyperalimentation, will start on solumedrol 60 mg IV TID Sepsis likely UTI -Admitted to telemetry -Blood cultures x 2 NGTD, although pt did receive 1 dose Rocephin before they could be drawn -Urine culture currently growing out E Coli -Repeat lactic acid resolved at 1.7 -C. diff and stool cultures neg -NSS at 100 cc/hr. Monitor for fluid overload due to h/o CHF -Zosyn IV empirically to cover both urinary and GI sources A-fib with RVR--Tachycardia resolved, dilt drip dced -EKG q am and prn with chest pain HTN, HLD, h/o CVA--stable -Continue lisinopril 2.5 mg PO qd Chronic diastolic CHF--stable, no acute exacerbation. CXR suggests pulmonary edema but does not sound wet on exam. More likely dehydrated due to vomiting/ sepsis -Hold off Lasix for now -Daily weights, I's & O's GI prophylaxis -Maalox Max 15 mL PO q4h prn dyspepsia -Milk of magnesia 30 mL PO q6h prn constipation -Miralax 17 gm PO qd prn constipation -Zofran 4 mg IV q6h prn nausea DVT prophylaxis -Heparin 5000 units SC q8h -MANUEL Rees Code Status -Level V, DO NOT RESUSCITATE
[2016-12-27] VITALS (8 sets, daily range): BP systolic 124–170; BP diastolic 68–90; PULSE 69–104; TEMP 36.3–37; O2SAT 95–98
[2016-12-27] MEDS: SODIUM CHLORIDE 0.9% 1000ML 1,000 ML IV SCH ×2 (03:04→09:26)
[2016-12-27] MEDS: METRONIDAZOLE / NSS 500 MG in PREMIXED NSS 100 ML IV SCH ×3 (03:17→19:57)
[2016-12-27] MEDS: METHYLPREDNISOLONE IV 60 MG in SYRINGE 0 ML IV SCH ×3 (03:17→19:57)
[2016-12-27] MEDS: HEPARIN SOD 5000 UNIT/0.5 ML CARP SQ SCH ×3 (06:03→22:00)
[2016-12-27 06:32] LABS: BASO % 0.1 %; BASO ABS # 0.01 K/uL (0-0.2); COMPLETE YES; HEMATOCRIT 46.5 % (37-47); IG% 0.4 %; LYMPH % 2.8 %; LYMPH ABS # 0.39 K/uL (1.2-3.4); MEAN CELL VOLUME 93.8 fL (80-100); MEAN CORPUSCULAR HEMOGLOBIN 31.5 pg (25-34); MEAN CORPUSCULAR HGB CONC 33.5 g/dl (32-36); MEAN PLATELET VOLUME 10.8 fL (7.4-10.4); MONO % 0.6 %; NEUT % 96.1 %; PLATELET COUNT 225 K/uL (130-400); RED BLOOD COUNT 4.96 M/uL (4.2-5.4); WHITE BLOOD COUNT 13.79 K/uL (4.8-10.8)
[2016-12-27 07:06] LABS: BUN/CREATININE RATIO 38.4 (10-20); CALCIUM 8.2 mg/dl (8.5-10.1); CREATININE 0.58 mg/dl (0.60-1.20); POTASSIUM 3.6 mmol/L (3.5-5.1)
[2016-12-27] MEDS ORDERED: NURSING VERBAL MED ORDER ONE ×2 (08:45→12:45)
[2016-12-27] MEDS: ASPIRIN 81 MG CHEW PO SCH (09:00)
[2016-12-27] MEDS: DILTIAZEM HCL 180 MG ER CAP PO SCH ×2 (09:00→09:24)
[2016-12-27] MEDS: NEPHROCAPS PO SCH (09:24)
[2016-12-27] MEDS: LISINOPRIL 2.5 MG TAB PO SCH (09:25)
[2016-12-27] MEDS: POTASSIUM CHLORIDE 20 MEQ/15 ML UDC PO SCH (09:25)
[2016-12-27] MEDS: CEFTRIAXONE SOD INJ 2,000 MG in DEXTROSE 5% 50ML 50 ML IV SCH (09:25)
--- NOTE | 2016-12-27 10:42 | Surgery Progress Note ---
Surgery Progress Note Date of Service Dec 27, 2016. Subjective pt rather somnolent. hx per nurse. no BM yet. NGT output has decreased. she pulled the NGT out herself. Objective Vital Signs: Date Time Temp Pulse Resp B/P (MAP) Pulse Ox O2 Delivery O2 Flow Rate FiO2 12/27/16 07:50 36.4 104 18 167/89 (115) 97 Nasal Cannula 12/27/16 04:00 36.3 80 18 124/68 (86) 95 Nasal Cannula 2.0 12/27/16 04:00 Nasal Cannula 2.0 12/27/16 00:00 Nasal Cannula 2.0 12/26/16 23:32 36.5 71 20 176/93 (120) 96 Nasal Cannula 2.0 12/26/16 20:00 Nasal Cannula 2.0 12/26/16 19:00 36.5 69 22 155/77 (103) 97 Nasal Cannula 2.0 12/26/16 16:00 100 Nasal Cannula 2.0 12/26/16 15:32 36.8 59 18 127/67 (87) 95 Nasal Cannula 2.0 12/26/16 12:00 100 Nasal Cannula 2.0 12/26/16 11:20 37.0 60 18 148/68 (94) 96 Nasal Cannula 2.0 General Appearance: no apparent distress Respiratory/Chest: no respiratory distress, no accessory muscle use Abdomen: non tender, soft Laboratory Results: Results Past 24 Hours Test 12/27/16 06:00 Range/Units White Blood Count 13.79 4.8-10.8 K/uL Red Blood Count 4.96 4.2-5.4 M/uL Hemoglobin 15.6 12.0-16.0 g/dL Hematocrit 46.5 37-47 % Mean Corpuscular Volume 93.8 80-100 fL Mean Corpuscular Hemoglobin 31.5 25-34 pg Mean Corpuscular Hemoglobin Concent 33.5 32-36 g/dl Platelet Count 225 130-400 K/uL Mean Platelet Volume 10.8 7.4-10.4 fL Neutrophils (%) (Auto) 96.1 % Lymphocytes (%) (Auto) 2.8 % Monocytes (%) (Auto) 0.6 % Eosinophils (%) (Auto) 0.0 % Basophils (%) (Auto) 0.1 % Neutrophils # (Auto) 13.26 1.4-6.5 K/uL Lymphocytes # (Auto) 0.39 1.2-3.4 K/uL Monocytes # (Auto) 0.08 0.11-0.59 K/uL Eosinophils # (Auto) 0.00 0-0.5 K/uL Basophils # (Auto) 0.01 0-0.2 K/uL RDW Standard Deviation 46.2 36.4-46.3 fL RDW Coefficient of Variation 13.5 11.5-14.5 % Immature Granulocyte % (Auto) 0.4 % Immature Granulocyte # (Auto) 0.05 0.00-0.02 K/uL Sodium Level 140 136-145 mmol/L Potassium Level 3.6 3.5-5.1 mmol/L Chloride Level 109 98-107 mmol/L Carbon Dioxide Level 21 21-32 mmol/L Anion Gap 10.0 3-11 mmol/L Blood Urea Nitrogen 22 7-18 mg/dl Creatinine 0.58 0.60-1.20 mg/dl Est Creatinine Clear Calc Drug Dose 68.7 ml/min Estimated GFR () 96.1 Estimated GFR (Non- 82.9 BUN/Creatinine Ratio 38.4 10-20 Random Glucose 170 70-99 mg/dl Calcium Level 8.2 8.5-10.1 mg/dl Assessment & Plan 12/27/16 contrast past the site of obstruction and is now in colon if she self removes the NGT again we can see how she does without it rec IV nutrition awaiting bowel fx. Dr. Ferreira covering for weekend. 12/25/16 pSBO vs SBO discussed with radiology. will put some contrast down NGT and perform serial KUB's to eval obstruction discussed with pt's son Arsenio...would be willing to consent for surgery if study positive for definite complete SBO clinically stable at the moment obviously high risk surgical candidate and surgery would be last resort. pSBO vs SBO discussed with radiology. will put some contrast down NGT and perform serial KUB's to eval obstruction discussed with pt's son Arsenio...would be willing to consent for surgery if study positive for definite complete SBO clinically stable at the moment obviously high risk surgical candidate and surgery would be last resort.
[2016-12-27] MEDS ORDERED: TPN/PPN CONSULT PHARMACY PRN (13:00)
[2016-12-27] MEDS: DILTIAZEM HCL 60 MG TAB NG SCH ×2 (14:24→21:00)
[2016-12-27] MEDS ORDERED: GLUCOSE 40% GEL 15 GM TUBE PO PRN (14:45)
[2016-12-27] MEDS ORDERED: GLUCAGON FOR INJ 1 MG VIAL SQ PRN (14:45)
[2016-12-27] MEDS ORDERED: GLUCOSE 10 TABS/TUBE PO PRN (14:45)
[2016-12-27] MEDS ORDERED: DEXTROSE 50% 50 ML SYR IV PRN (14:45)
[2016-12-27] MEDS ORDERED: DEXTROSE 10% 1,000 ML IV PRN (14:50)
[2016-12-27 14:57] LABS: MAGNESIUM 2.2 mg/dl (1.8-2.4); PHOSPHORUS 2.9 mg/dl (2.5-4.9)
[2016-12-27] MEDS: METOPROLOL TARTRATE 1 MG/ML VIAL IV PRN (14:57)
[2016-12-27] MEDS ORDERED: CUSTOM PERIPHERAL PN 1 BAG IV SCH (16:00)
--- NOTE | 2016-12-27 16:01 | Progress Note ---
Subjective Date of Service: Dec 27, 2016. Subjective Pt evaluation today including: conversation w/ patient, conversation w/ family , physical exam, chart review, lab review, review of studies, conversation w/ senior consumer insights consultant, review of inpatient medication list Resting comfortably in bed Resting in bed comfortably Problem List Medical Problems: (1) Atrial fibrillation and flutter Status: Acute (2) Atrial fibrillation with RVR Status: Acute (3) UTI (urinary tract infection) Status: Acute Review of Systems Constitutional: No fever, No chills, No sweats, No weight loss Eyes: No worsening of vision, No eye pain, No redness, No discharge Respiratory: No cough, No sputum, No wheezing, No shortness of breath, No dyspnea on exertion Cardiac: No chest pain, No orthopnea, No PND, No edema, No claudication Abdomen: No pain, No nausea, No vomiting, No diarrhea, No constipation Musculoskeletal: No joint pain, No muscle pain, No swelling, No calf pain Female : No dysuria, No urinary frequency, No hematuria, No incontinence Neurologic: No memory loss, No paralysis, No weakness, No numbness/tingling Psychiatric: No depression symptoms, No anhedonism, No anxiety, No insomnia Endo: No fatigue, No excessive thirst Skin: No rash, No itch Objective Vital Signs Date Time Temp Pulse Resp B/P (MAP) Pulse Ox O2 Delivery O2 Flow Rate FiO2 12/27/16 14:57 134 167/95 12/27/16 12:00 97 Nasal Cannula 2.0 12/27/16 11:09 36.9 101 16 155/78 (103) 96 Nasal Cannula 12/27/16 08:00 97 Nasal Cannula 2.0 12/27/16 07:50 36.4 104 18 167/89 (115) 97 Nasal Cannula 12/27/16 04:00 36.3 80 18 124/68 (86) 95 Nasal Cannula 2.0 12/27/16 04:00 Nasal Cannula 2.0 12/27/16 00:00 Nasal Cannula 2.0 12/26/16 23:32 36.5 71 20 176/93 (120) 96 Nasal Cannula 2.0 12/26/16 20:00 Nasal Cannula 2.0 12/26/16 19:00 36.5 69 22 155/77 (103) 97 Nasal Cannula 2.0 12/26/16 16:00 100 Nasal Cannula 2.0 Physical Exam General Appearance: WD/WN, no apparent distress Neck: supple, no adenopathy, thyroid normal, no JVD Respiratory/Chest: lungs clear, normal breath sounds, no respiratory distress, no accessory muscle use Cardiovascular: no edema, no gallop, no JVD, no murmur Abdomen: normal bowel sounds, non tender, soft, no organomegaly Extremities: non-tender, normal inspection, no pedal edema Neurologic/Psychiatric: no motor/sensory deficits, alert, normal mood/affect Laboratory Results Last 24 Hours Test 12/27/16 06:00 White Blood Count 13.79 K/uL Red Blood Count 4.96 M/uL Hemoglobin 15.6 g/dL Hematocrit 46.5 % Mean Corpuscular Volume 93.8 fL Mean Corpuscular Hemoglobin 31.5 pg Mean Corpuscular Hemoglobin Concent 33.5 g/dl Platelet Count 225 K/uL Mean Platelet Volume 10.8 fL Neutrophils (%) (Auto) 96.1 % Lymphocytes (%) (Auto) 2.8 % Monocytes (%) (Auto) 0.6 % Eosinophils (%) (Auto) 0.0 % Basophils (%) (Auto) 0.1 % Neutrophils # (Auto) 13.26 K/uL Lymphocytes # (Auto) 0.39 K/uL Monocytes # (Auto) 0.08 K/uL Eosinophils # (Auto) 0.00 K/uL Basophils # (Auto) 0.01 K/uL RDW Standard Deviation 46.2 fL RDW Coefficient of Variation 13.5 % Immature Granulocyte % (Auto) 0.4 % Immature Granulocyte # (Auto) 0.05 K/uL Sodium Level 140 mmol/L Potassium Level 3.6 mmol/L Chloride Level 109 mmol/L Carbon Dioxide Level 21 mmol/L Anion Gap 10.0 mmol/L Blood Urea Nitrogen 22 mg/dl Creatinine 0.58 mg/dl Est Creatinine Clear Calc Drug Dose 68.7 ml/min Estimated GFR () 96.1 Estimated GFR (Non- 82.9 BUN/Creatinine Ratio 38.4 Random Glucose 170 mg/dl Calcium Level 8.2 mg/dl Phosphorus Level 2.9 mg/dl Magnesium Level 2.2 mg/dl Assessment and Plan 86 y/o female with a history of a-fib, HTN, HLD, CVA, diastolic CHF, depression and dementia who presented to the ED on 12/21 from [facility] with vomiting x 2 days. Pt afebrile on arrival. Tachycardic, in a-fib with RVR and hypoxic with O2 sat 88% on room air. Pt does not typically wear oxygen although son states she is supposed to. The patient was given Lopressor 5 mg IV x 1 with no control of rate. Pt then placed on diltiazem drip with 20 mg bolus and is now rate controlled, BP stable. EKG shows a-fib with RVR, no ischemic changes. CXR suggestive of pulmonary edema. WBC elevated at 24.02. POC lactic acid 2.96. Cardiac enzymes negative. UA 4+ bacteria but also high in epithelial cells. Pt given IVF and Rocephin in ED. SBO/?colitis -CT abd/pelvis 12/23 depicted PSBO, kept NPO and started on IV zosyn, switched to IV rocephin 2 grams daily in addition to flagyl 500 mg IV TID -Gen surg consulted, repeat KUB, will require hyperalimentation, PICC line to be placed, pharmacy consulted for TPN, cont solumedrol 60 mg IV TID Sepsis likely UTI, leukocytosis improving -Admitted to telemetry -Blood cultures x 2 NGTD, although pt did receive 1 dose Rocephin before they could be drawn -Urine culture currently growing out E Coli -Repeat lactic acid resolved at 1.7 -C. diff and stool cultures neg -NSS at 100 cc/hr. Monitor for fluid overload due to h/o CHF -Cotn antibx listed above A-fib with RVR--Tachycardia resolved, dilt drip dced, cont PO dilt -EKG q am and prn with chest pain HTN, HLD, h/o CVA--stable -Continue lisinopril 2.5 mg PO qd Chronic diastolic CHF--stable, no acute exacerbation. CXR suggests pulmonary edema but does not sound wet on exam. More likely dehydrated due to vomiting/ sepsis -Hold off Lasix for now -Daily weights, I's & O's GI prophylaxis -Maalox Max 15 mL PO q4h prn dyspepsia -Milk of magnesia 30 mL PO q6h prn constipation -Miralax 17 gm PO qd prn constipation -Zofran 4 mg IV q6h prn nausea DVT prophylaxis -Heparin 5000 units SC q8h -MANUEL carpenter and Sharifa Code Status -Level V, DO NOT RESUSCITATE
--- NOTE | 2016-12-27 17:21 | DIAGNOSTIC IMAGING REPORT ---
CHEST ONE VIEW PORTABLE CLINICAL HISTORY: 86 years-old Female presenting with PICC line placement please. HX of A-Fib. TECHNIQUE: Portable upright AP view of the chest was obtained. COMPARISON: 12/25/2016. FINDINGS: Left upper extremity PICC terminates in the SVC. Nasogastric tube descends below the diaphragm. Atherosclerosis of aortic arch. Enlargement of the cardiac silhouette. Persistent bibasilar hazy opacities. Stable to slight interval decrease in trace right and small left pleural effusions. No pneumothorax. Osseous structures normal. Upper abdomen normal. IMPRESSION: 1. Left upper PICC terminates in the SVC. Nasogastric tube terminates below the diaphragm. 2. Cardiomegaly. 3. Mild pulmonary edema and bilateral effusions stable to slightly decreased from prior. Electronically signed by: Juan Jose Faith M.D. 12/27/2016 5:20 PM Dictated Date/Time: 12/27/2016 5:18 PM
[2016-12-27] MEDS: INSULIN ASPART 100 UNITS/ML 3 ML PEN SC SCH (18:00)
[2016-12-28] VITALS (8 sets, daily range): BP systolic 132–163; BP diastolic 68–84; PULSE 72–96; TEMP 36.8–37; O2SAT 91–97
[2016-12-28] MEDS: METHYLPREDNISOLONE IV 60 MG in SYRINGE 0 ML IV SCH ×3 (03:54→20:36)
[2016-12-28] MEDS: METRONIDAZOLE / NSS 500 MG in PREMIXED NSS 100 ML IV SCH ×3 (03:54→20:36)
[2016-12-28] MEDS: HydrALAZINE HCL 20 MG/ML VIAL IV. PRN (03:54)
[2016-12-28 05:00] LABS: HEMATOCRIT 45.2 % (37-47); MEAN CELL VOLUME 93.8 fL (80-100); MEAN CORPUSCULAR HEMOGLOBIN 31.1 pg (25-34); MEAN CORPUSCULAR HGB CONC 33.2 g/dl (32-36); MEAN PLATELET VOLUME 11.2 fL (7.4-10.4); PLATELET COUNT 223 K/uL (130-400); RED BLOOD COUNT 4.82 M/uL (4.2-5.4); WHITE BLOOD COUNT 23.64 K/uL (4.8-10.8)
[2016-12-28 05:03] LABS: BUN/CREATININE RATIO 44.3 (10-20); CALCIUM 8.1 mg/dl (8.5-10.1); CREATININE 0.75 mg/dl (0.60-1.20); MAGNESIUM 2.2 mg/dl (1.8-2.4); PHOSPHORUS 2.4 mg/dl (2.5-4.9); POTASSIUM 3.8 mmol/L (3.5-5.1)
[2016-12-28] MEDS: HEPARIN SOD 5000 UNIT/0.5 ML CARP SQ SCH ×3 (05:39→20:40)
[2016-12-28 05:49] LABS: BASO ABS # 0.01 K/uL (0-0.2); COMPLETE YES; IG% 0.6 %; LYMPH % 3.9 %; LYMPH ABS # 0.92 K/uL (1.2-3.4); MONO % 1.2 %; NEUT % 94.3 %
[2016-12-28] MEDS: INSULIN ASPART 100 UNITS/ML 3 ML PEN SC SCH ×4 (05:58→18:48)
[2016-12-28] MEDS ORDERED: NURSING VERBAL MED ORDER ONE (08:45)
[2016-12-28] MEDS: NEPHROCAPS PO SCH (09:00)
[2016-12-28] MEDS: LISINOPRIL 2.5 MG TAB NG SCH (09:00)
[2016-12-28] MEDS: ASPIRIN 81 MG CHEW NG SCH (09:00)
[2016-12-28] MEDS: DILTIAZEM HCL 60 MG TAB NG SCH ×3 (09:00→20:37)
[2016-12-28] MEDS: POTASSIUM CHLORIDE 20 MEQ/15 ML UDC NG SCH (09:00)
--- NOTE | 2016-12-28 09:20 | Pharmacy Progress Note ---
Parenteral Nutrition Consult Date of Service Dec 28, 2016. Scope Pharmacy has been consulted to manage parenteral nutrition orders and order appropriate labs. As part of the Nutrition Support Team guidelines, pharmacy will work in conjunction with dietary when determining the patients caloric needs. Subjective The patient is a 86 year old female admitted on Dec 21, 2016 at 13:15 for Atrial Fibrillation With Rvr; Sepsis; Vomiting. Patient is to receive parenteral nutrition for [INDICATION]. Pertinent PMH: * Diastolic CHF per MD Objective Height (Feet): 5 Height (Inches): 4.00 Weight (Kilograms): 80.000 Diet: NPO Vascular Access: PICC placed 12/27/16 Intake & Output (Last 72 Hr): 12/27/16 12/28/16 12/29/16 08:00 08:00 08:00 Intake Total 2478 ml 3182 ml Output Total 75 ml 45 ml Balance 2403 ml 3137 ml Additional Fluid Losses/Gains: Large volume infused ~16 additional hours (to be discontinued 12/27 @1600). Additional monitoring added. Lasix added this morning. Laboratory Data (Last 24 Hr): Test 12/28/16 04:10 Albumin 2.4 gm/dl (3.4-5.0) Blood Urea Nitrogen 33 mg/dl (7-18) Calcium Level 8.1 mg/dl (8.5-10.1) Carbon Dioxide Level 24 mmol/L (21-32) Chloride Level 109 mmol/L (98-107) Creatinine 0.75 mg/dl (0.60-1.20) Magnesium Level 2.2 mg/dl (1.8-2.4) Phosphorus Level 2.4 mg/dl (2.5-4.9) Potassium Level 3.8 mmol/L (3.5-5.1) Random Glucose 251 mg/dl (70-99) Sodium Level 140 mmol/L (136-145) Triglycerides Level 152 mg/dl (0-150) Recent Pertinent Medications: Item Value Date Time Potassium Chloride 20 meq 12/28/16 0900 (Flor Ciel Elix) QAM/NG Furosemide 40 mg 12/28/16 0900 (Lasix Tab) BID/PO Insulin Aspart SLIDING SCALE 12/27/16 1800 (novoLOG ASPART) Q6/SC 12/28/16 0558 Nutrition Assessment Please refer to the Notes section of the EMR for the most recent 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 Assessment * 86 yo F receiving TPN for SBO * Plan was to maintain fluids between 2705-7250 mLs after speaking with the MD yesterday * At this time, patient edematous and Lasix ordered * Plan will be to continue TPN at minimum volume until MD deems increase appropriate * Replete Phos today and continue to evaluate labs daily as we titrate to goal * BSGs ~170 mg/dL yesterday * Novolog scale Q6 hrs added * BSG this AM >200 mg/dL * Add IV insulin ( .05-.1 units/grams of dextrose) to TPN today Plan For day 2 of PN administration, the following will be ordered: Macronutrients Amino acids 80 grams/day Dextrose 125 grams/day Lipids 0 grams/day Micronutrients Combined electrolytes 20 mL - contains 35 mEq Na, 20 meq K, 4.5 mEq Ca, 5 mEq Mg , 35 mEq Cl, 29.5 mEq acetate per 20 mL Sodium phosphate 21 MMol Sodium chloride 0 mEq Sodium acetate 0 mEq Potassium phosphate 15 mMol Potassium chloride 0 mEq Potassium acetate 40 mEq Magnesium sulfate 0 mEq Calcium gluconate 0 mEq Multivitamins 10 mL Trace Elements 10 mL Additional additives: Famotidine 20 mg Regular Insulin 8 units Total volume 1043 mL to be infused over 24 hrs will provide 745 kcal/day Labs to be ordered per PN order protocol Pharmacy will follow and adjust parenteral nutrition orders on a daily basis. Thank you.
[2016-12-28] MEDS ORDERED: POTASSIUM PHOSPHATE IV ONE (09:45)
[2016-12-28] MEDS ORDERED: SODIUM CHLORIDE 0.9% IV ONE (09:45)
[2016-12-28] MEDS: FUROSEMIDE 40 MG TAB PO SCH ×2 (09:54→20:37)
--- NOTE | 2016-12-28 10:18 | Surgery Progress Note ---
Surgery Progress Note Date of Service Dec 28, 2016. Subjective Patient examined at bedside this morning. Afebrile, vitals stable on 2L O2 via NC overnight. NGT in place and functioning, 45ml reported bilious output overnight. Unable to accurately record UOP, patient currently refusing duran placement. Several smears of BM overnight. Patient denies pain. Abdomen remains distended, but soft and non tender to palpation. TPN running. Objective Vital Signs: Date Time Temp Pulse Resp B/P (MAP) Pulse Ox O2 Delivery O2 Flow Rate FiO2 12/28/16 07:54 36.8 95 22 132/73 (92) 95 Nasal Cannula 2.0 12/28/16 05:31 94 161/68 (99) 12/28/16 04:00 Nasal Cannula 2.0 12/28/16 03:45 36.8 72 16 162/78 (106) 97 Nasal Cannula 2.0 12/28/16 00:00 Nasal Cannula 2.0 12/27/16 22:47 36.8 69 18 146/71 (96) 95 Nasal Cannula 2.0 12/27/16 18:50 37.0 85 19 170/90 (116) 98 Nasal Cannula 2.0 12/27/16 16:00 97 Nasal Cannula 2.0 12/27/16 14:57 134 167/95 12/27/16 12:00 97 Nasal Cannula 2.0 12/27/16 11:09 36.9 101 16 155/78 (103) 96 Nasal Cannula General Appearance: WD/WN, no apparent distress Head: normocephalic Neck: supple Respiratory/Chest: lungs clear, normal breath sounds, no respiratory distress Cardiovascular: regular rate, rhythm Abdomen: normal bowel sounds, non tender, soft, + distended Laboratory Results: Results Past 24 Hours Test 12/27/16 18:15 12/27/16 23:50 12/28/16 04:10 12/28/16 05:35 Range/Units Bedside Glucose 177 186 212 70-90 mg/dl White Blood Count 23.64 4.8-10.8 K/uL Red Blood Count 4.82 4.2-5.4 M/uL Hemoglobin 15.0 12.0-16.0 g/dL Hematocrit 45.2 37-47 % Mean Corpuscular Volume 93.8 80-100 fL Mean Corpuscular Hemoglobin 31.1 25-34 pg Mean Corpuscular Hemoglobin Concent 33.2 32-36 g/dl Platelet Count 223 130-400 K/uL Mean Platelet Volume 11.2 7.4-10.4 fL Neutrophils (%) (Auto) 94.3 % Lymphocytes (%) (Auto) 3.9 % Monocytes (%) (Auto) 1.2 % Eosinophils (%) (Auto) 0.0 % Basophils (%) (Auto) 0.0 % Neutrophils # (Auto) 22.28 1.4-6.5 K/uL Lymphocytes # (Auto) 0.92 1.2-3.4 K/uL Monocytes # (Auto) 0.29 0.11-0.59 K/uL Eosinophils # (Auto) 0.00 0-0.5 K/uL Basophils # (Auto) 0.01 0-0.2 K/uL RDW Standard Deviation 46.8 36.4-46.3 fL RDW Coefficient of Variation 13.7 11.5-14.5 % Immature Granulocyte % (Auto) 0.6 % Immature Granulocyte # (Auto) 0.14 0.00-0.02 K/uL Sodium Level 140 136-145 mmol/L Potassium Level 3.8 3.5-5.1 mmol/L Chloride Level 109 98-107 mmol/L Carbon Dioxide Level 24 21-32 mmol/L Anion Gap 7.0 3-11 mmol/L Blood Urea Nitrogen 33 7-18 mg/dl Creatinine 0.75 0.60-1.20 mg/dl Est Creatinine Clear Calc Drug Dose 53.1 ml/min Estimated GFR () 83.1 Estimated GFR (Non- 71.7 BUN/Creatinine Ratio 44.3 10-20 Random Glucose 251 70-99 mg/dl Calcium Level 8.1 8.5-10.1 mg/dl Phosphorus Level 2.4 2.5-4.9 mg/dl Magnesium Level 2.2 1.8-2.4 mg/dl Albumin 2.4 3.4-5.0 gm/dl Triglycerides Level 152 0-150 mg/dl Assessment & Plan Rita Keita is an 86 year old woman with dementia who was admitted with a partial bowel obstruction. On imaging, contrast has moved past the site of obstruction and into the colon. Abdomen remains distended, but soft with good bowel sounds and is non tender to palpation. -Continue NGT decompression -TPN for nutrition -Pain control as needed -Replete electrolytes prn -Diuresis per primary team -Rest of care per primary team -Will continue to follow, await bowel function Vanesa Ferreira MD 12/28/16
[2016-12-28] MEDS: CEFTRIAXONE SOD INJ 2,000 MG in DEXTROSE 5% 50ML 50 ML IV SCH (11:56)
--- NOTE | 2016-12-28 12:27 | Progress Note ---
Subjective Date of Service: Dec 28, 2016. Subjective Pt evaluation today including: conversation w/ patient, conversation w/ family , physical exam, chart review, lab review, review of studies, review of inpatient medication list Fluid overloaded Received TPN in addition to IVF No shortness of breath noted Son and daughter at bedside Problem List Medical Problems: (1) Atrial fibrillation and flutter Status: Acute (2) Atrial fibrillation with RVR Status: Acute (3) UTI (urinary tract infection) Status: Acute Review of Systems Constitutional: No fever, No chills, No sweats, No weight loss Eyes: No worsening of vision, No eye pain, No redness, No discharge Respiratory: No cough, No sputum, No wheezing, No shortness of breath, No dyspnea on exertion Cardiac: No chest pain, No orthopnea, No PND, No edema Abdomen: No pain, No nausea, No vomiting, No diarrhea, No constipation Musculoskeletal: No joint pain, No muscle pain, No swelling, No calf pain Female : No dysuria, No urinary frequency, No hematuria, No incontinence Neurologic: No memory loss, No paralysis, No weakness, No numbness/tingling Psychiatric: No depression symptoms, No anhedonism, No anxiety, No insomnia Heme: No abnormal bleeding/bruising, No clotting problems Skin: No rash, No itch Objective Vital Signs Date Time Temp Pulse Resp B/P (MAP) Pulse Ox O2 Delivery O2 Flow Rate FiO2 12/28/16 07:54 36.8 95 22 132/73 (92) 95 Nasal Cannula 2.0 12/28/16 05:31 94 161/68 (99) 12/28/16 04:00 Nasal Cannula 2.0 12/28/16 03:45 36.8 72 16 162/78 (106) 97 Nasal Cannula 2.0 12/28/16 00:00 Nasal Cannula 2.0 12/27/16 22:47 36.8 69 18 146/71 (96) 95 Nasal Cannula 2.0 12/27/16 18:50 37.0 85 19 170/90 (116) 98 Nasal Cannula 2.0 12/27/16 16:00 97 Nasal Cannula 2.0 12/27/16 14:57 134 167/95 Physical Exam General Appearance: WD/WN, no apparent distress Eyes: normal inspection, PERRL, EOMI, sclerae normal Neck: supple, no adenopathy, thyroid normal, no JVD Respiratory/Chest: chest non-tender, lungs clear, normal breath sounds, no respiratory distress Cardiovascular: regular rate, rhythm, no gallop, no JVD, no murmur Abdomen: normal bowel sounds, non tender, soft, no organomegaly Extremities: normal range of motion, non-tender, normal inspection, + pedal edema Neurologic/Psychiatric: no motor/sensory deficits, alert, normal mood/affect, oriented x 3 Laboratory Results Last 24 Hours Test 12/27/16 18:15 12/27/16 23:50 12/28/16 04:10 12/28/16 05:35 Bedside Glucose 177 mg/dl 186 mg/dl 212 mg/dl White Blood Count 23.64 K/uL Red Blood Count 4.82 M/uL Hemoglobin 15.0 g/dL Hematocrit 45.2 % Mean Corpuscular Volume 93.8 fL Mean Corpuscular Hemoglobin 31.1 pg Mean Corpuscular Hemoglobin Concent 33.2 g/dl Platelet Count 223 K/uL Mean Platelet Volume 11.2 fL Neutrophils (%) (Auto) 94.3 % Lymphocytes (%) (Auto) 3.9 % Monocytes (%) (Auto) 1.2 % Eosinophils (%) (Auto) 0.0 % Basophils (%) (Auto) 0.0 % Neutrophils # (Auto) 22.28 K/uL Lymphocytes # (Auto) 0.92 K/uL Monocytes # (Auto) 0.29 K/uL Eosinophils # (Auto) 0.00 K/uL Basophils # (Auto) 0.01 K/uL RDW Standard Deviation 46.8 fL RDW Coefficient of Variation 13.7 % Immature Granulocyte % (Auto) 0.6 % Immature Granulocyte # (Auto) 0.14 K/uL Sodium Level 140 mmol/L Potassium Level 3.8 mmol/L Chloride Level 109 mmol/L Carbon Dioxide Level 24 mmol/L Anion Gap 7.0 mmol/L Blood Urea Nitrogen 33 mg/dl Creatinine 0.75 mg/dl Est Creatinine Clear Calc Drug Dose 53.1 ml/min Estimated GFR () 83.1 Estimated GFR (Non- 71.7 BUN/Creatinine Ratio 44.3 Random Glucose 251 mg/dl Calcium Level 8.1 mg/dl Phosphorus Level 2.4 mg/dl Magnesium Level 2.2 mg/dl Albumin 2.4 gm/dl Triglycerides Level 152 mg/dl Assessment and Plan 86 y/o female with a history of a-fib, HTN, HLD, CVA, diastolic CHF, depression and dementia who presented to the ED on 12/21 from [facility] with vomiting x 2 days. Pt afebrile on arrival. Tachycardic, in a-fib with RVR and hypoxic with O2 sat 88% on room air. Pt does not typically wear oxygen although son states she is supposed to. The patient was given Lopressor 5 mg IV x 1 with no control of rate. Pt then placed on diltiazem drip with 20 mg bolus and is now rate controlled, BP stable. EKG shows a-fib with RVR, no ischemic changes. CXR suggestive of pulmonary edema. WBC elevated at 24.02. POC lactic acid 2.96. Cardiac enzymes negative. UA 4+ bacteria but also high in epithelial cells. Pt given IVF and Rocephin in ED. SBO/?colitis -CT abd/pelvis 12/23 depicted PSBO, kept NPO and started on IV zosyn, switched to IV rocephin 2 grams daily in addition to flagyl 500 mg IV TID -Gen surg consulted, repeat KUB, will require hyperalimentation, PICC line to be placed, pharmacy consulted for TPN, cont solumedrol 60 mg IV TID Sepsis likely UTI, leukocytosis worsening -Admitted to telemetry -Blood cultures x 2 NGTD, although pt did receive 1 dose Rocephin before they could be drawn -Urine culture currently growing out E Coli -Repeat lactic acid resolved at 1.7 -C. diff and stool cultures neg -Monitor for fluid overload due to h/o CHF, edematous state, started on lasix 40 mg PO BID -Cont antibx listed above A-fib with RVR--Tachycardia resolved, dilt drip dced, cont PO dilt -EKG q am and prn with chest pain HTN, HLD, h/o CVA--stable -Continue lisinopril 2.5 mg PO qd Chronic diastolic CHF--stable, no acute exacerbation. CXR suggests pulmonary edema but does not sound wet on exam. More likely dehydrated due to vomiting/ sepsis -Hold off Lasix for now -Daily weights, I's & O's GI prophylaxis -Maalox Max 15 mL PO q4h prn dyspepsia -Milk of magnesia 30 mL PO q6h prn constipation -Miralax 17 gm PO qd prn constipation -Zofran 4 mg IV q6h prn nausea DVT prophylaxis -Heparin 5000 units SC q8h -MANUEL carpenter and Sharifa Code Status -Level V, DO NOT RESUSCITATE
[2016-12-28] MEDS ORDERED: CUSTOM CENTRAL PN 1 BAG IV SCH (16:00)
[2016-12-29] VITALS (8 sets, daily range): BP systolic 139–192; BP diastolic 79–111; PULSE 90–144; TEMP 36.3–37.8; O2SAT 91–95
[2016-12-29] MEDS: INSULIN ASPART 100 UNITS/ML 3 ML PEN SC SCH ×4 (00:01→18:05)
[2016-12-29] MEDS: METOPROLOL TARTRATE 1 MG/ML VIAL IV PRN ×3 (00:47→19:58)
[2016-12-29] MEDS: METHYLPREDNISOLONE IV 60 MG in SYRINGE 0 ML IV SCH ×3 (04:02→20:45)
[2016-12-29] MEDS: METRONIDAZOLE / NSS 500 MG in PREMIXED NSS 100 ML IV SCH ×3 (04:02→20:45)
[2016-12-29 04:47] LABS: BASO ABS # 0.01 K/uL (0-0.2); COMPLETE YES; HEMATOCRIT 44.4 % (37-47); IG% 0.6 %; LYMPH % 1.4 %; LYMPH ABS # 0.28 K/uL (1.2-3.4); MEAN CELL VOLUME 92.3 fL (80-100); MEAN CORPUSCULAR HEMOGLOBIN 31.8 pg (25-34); MEAN CORPUSCULAR HGB CONC 34.5 g/dl (32-36); MEAN PLATELET VOLUME 11.2 fL (7.4-10.4); MONO % 2.9 %; NEUT % 95.1 %; PLATELET COUNT 200 K/uL (130-400); RED BLOOD COUNT 4.81 M/uL (4.2-5.4); WHITE BLOOD COUNT 20.32 K/uL (4.8-10.8)
[2016-12-29 05:07] LABS: BUN/CREATININE RATIO 39.5 (10-20); CALCIUM 8.2 mg/dl (8.5-10.1); CREATININE 0.8 mg/dl (0.60-1.20); MAGNESIUM 2.3 mg/dl (1.8-2.4); POTASSIUM 3.4 mmol/L (3.5-5.1)
[2016-12-29 05:22] LABS: PHOSPHORUS 3.1 mg/dl (2.5-4.9)
[2016-12-29] MEDS: HydrALAZINE HCL 20 MG/ML VIAL IV. PRN ×2 (05:27→15:47)
[2016-12-29] MEDS: HEPARIN SOD 5000 UNIT/0.5 ML CARP SQ SCH ×3 (05:40→23:21)
--- NOTE | 2016-12-29 07:22 | DIAGNOSTIC IMAGING REPORT ---
ADDENDUM Upon further review of the case, decreased attenuation of the left cerebral hemisphere notably at the level of the centrum semiovale involving the left frontal and parietal lobes is noted with blurring of the shaikh-white interface compatible with acute territorial ischemia/infarction. Please see comparison MRI of the brain for further details. Electronically signed by: Soto Evans M.D. 12/29/2016 10:08 PM Dictated Date/Time: 12/29/2016 10:04 PM ORIGINAL REPORT HEAD WITHOUT CONTRAST (CT) CLINICAL HISTORY: 86 years-old Female with acute stroke like symptoms. TECHNIQUE: Multiple axial CT images of the head were obtained without contrast. A dose lowering technique was utilized adhering to the principles of ALARA. CT DOSE: 614.27 mGy.cm COMPARISON: Head CT 03/30/2013. FINDINGS: No acute intracranial hemorrhage, midline shift, mass, large territorial ischemia or abnormal extra-axial collection. Exam is limited secondary to positioning of patient's head within the gantry. Encephalomalacia within the right temporal lobe from remote infarction is again seen. There is background moderate cerebral atrophy with ex vacuo ventriculomegaly. Background chronic microvascular ischemic changes are noted. The calvarium is intact. There are small bilateral mastoid effusions. A nasogastric tube is partially imaged. IMPRESSION: 1. No acute intracranial abnormality identified. 2. Remote infarction of the right temporal lobe with background atrophy and chronic microvascular ischemic changes. 3. Small bilateral mastoid effusions. The above report was generated using voice recognition software. It may contain grammatical, syntax or spelling errors. Electronically signed by: Soto Evans M.D. 12/29/2016 7:21 AM Dictated Date/Time: 12/29/2016 7:18 AM
[2016-12-29] MEDS: FUROSEMIDE 40 MG TAB PO SCH ×2 (07:56→20:47)
[2016-12-29] MEDS: POTASSIUM CHLORIDE 20 MEQ/15 ML UDC NG SCH (07:56)
[2016-12-29] MEDS: ASPIRIN 81 MG CHEW NG SCH (07:56)
[2016-12-29] MEDS: DILTIAZEM HCL 60 MG TAB NG SCH ×3 (07:57→20:47)
[2016-12-29] MEDS: LISINOPRIL 2.5 MG TAB NG SCH (07:57)
[2016-12-29] MEDS: NEPHROCAPS PO SCH (07:58)
[2016-12-29] MEDS ORDERED: DILTIAZEM BOLUS / DRIP IV STA (10:03)
[2016-12-29] MEDS ORDERED: MoRPHine SULFATE 2 MG/ML CARP ONE (10:09)
[2016-12-29] MEDS: CEFTRIAXONE SOD INJ 2,000 MG in DEXTROSE 5% 50ML 50 ML IV SCH (10:10)
[2016-12-29] MEDS ORDERED: NURSING VERBAL MED ORDER ONE ×3 (10:15→11:15)
[2016-12-29] MEDS ORDERED: DILTIAZEM HCL INJ 125 MG in DEXTROSE 5% 100ML IV PRN (10:15)
--- NOTE | 2016-12-29 10:46 | Surgery Progress Note ---
Surgery Progress Note Date of Service Dec 29, 2016. Subjective Patient examined at bedside this morning, sons present with patient. Overnight had an acute mental status change - had been at baseline responsiveness, then suddenly was much less responsive. CT head completed overnight, did not show any acute abnormalities; MRI brain has been ordered. Patient is minimally responsive at this time, will move hands and has some facial reaction to sons' voices. At this point, unclear cause of patient's abrupt change in clinical status. NGT remains in place and functioning. Abdomen soft, does not appear to be tender to palpation. +BM overnight. Leukocytosis slightly decreased this morning (20.3 from 23.6). Objective Vital Signs: Date Time Temp Pulse Resp B/P (MAP) Pulse Ox O2 Delivery O2 Flow Rate FiO2 12/29/16 08:00 36.5 138 22 152/91 (111) 93 Nasal Cannula 2.0 12/29/16 07:00 165 175/90 12/29/16 04:00 Nasal Cannula 2.0 12/29/16 03:16 37.0 90 22 161/79 (106) 92 Nasal Cannula 2.0 12/29/16 00:47 134 161/80 12/29/16 00:00 Nasal Cannula 2.0 12/28/16 23:09 37.0 91 24 161/80 (107) 92 Nasal Cannula 2.0 12/28/16 20:29 36.9 96 22 163/77 (105) 91 Nasal Cannula 2.0 12/28/16 20:00 97 Nasal Cannula 2.0 12/28/16 16:00 97 Nasal Cannula 2.0 12/28/16 12:26 37.0 75 19 154/84 (107) 97 General Appearance: + mild distress, + pertinent finding (ill appearing) Respiratory/Chest: + accessory muscle use (increased respiratory effort) Cardiovascular: + tachycardia Abdomen: non tender, non distended, soft (no rebound / guarding) Laboratory Results: Results Past 24 Hours Test 12/28/16 12:11 12/28/16 18:23 12/28/16 23:57 12/29/16 04:21 Range/Units Bedside Glucose 284 256 210 70-90 mg/dl White Blood Count 20.32 4.8-10.8 K/uL Red Blood Count 4.81 4.2-5.4 M/uL Hemoglobin 15.3 12.0-16.0 g/dL Hematocrit 44.4 37-47 % Mean Corpuscular Volume 92.3 80-100 fL Mean Corpuscular Hemoglobin 31.8 25-34 pg Mean Corpuscular Hemoglobin Concent 34.5 32-36 g/dl Platelet Count 200 130-400 K/uL Mean Platelet Volume 11.2 7.4-10.4 fL Neutrophils (%) (Auto) 95.1 % Lymphocytes (%) (Auto) 1.4 % Monocytes (%) (Auto) 2.9 % Eosinophils (%) (Auto) 0.0 % Basophils (%) (Auto) 0.0 % Neutrophils # (Auto) 19.31 1.4-6.5 K/uL Lymphocytes # (Auto) 0.28 1.2-3.4 K/uL Monocytes # (Auto) 0.59 0.11-0.59 K/uL Eosinophils # (Auto) 0.00 0-0.5 K/uL Basophils # (Auto) 0.01 0-0.2 K/uL RDW Standard Deviation 46.6 36.4-46.3 fL RDW Coefficient of Variation 13.9 11.5-14.5 % Immature Granulocyte % (Auto) 0.6 % Immature Granulocyte # (Auto) 0.13 0.00-0.02 K/uL Sodium Level 140 136-145 mmol/L Potassium Level 3.4 3.5-5.1 mmol/L Chloride Level 105 98-107 mmol/L Carbon Dioxide Level 28 21-32 mmol/L Anion Gap 7.0 3-11 mmol/L Blood Urea Nitrogen 32 7-18 mg/dl Creatinine 0.80 0.60-1.20 mg/dl Est Creatinine Clear Calc Drug Dose 50.7 ml/min Estimated GFR () 76.8 Estimated GFR (Non- 66.3 BUN/Creatinine Ratio 39.5 10-20 Random Glucose 262 70-99 mg/dl Calcium Level 8.2 8.5-10.1 mg/dl Phosphorus Level 3.1 2.5-4.9 mg/dl Magnesium Level 2.3 1.8-2.4 mg/dl Test 12/29/16 05:35 12/29/16 07:47 Range/Units Bedside Glucose 246 70-90 mg/dl Troponin I < 0.015 0-0.045 ng/ml Assessment & Plan Rita Keita is an 86 year old woman with dementia who was admitted with a partial bowel obstruction. Obstruction seems to be resolving - abdomen less distended than yesterday, soft, no reaction to palpation. Having BMs. Unclear cause of abrupt change in overall clinical status at this point, but does not seem to be any role for surgery. -Continue NGT decompression due to decreased mental status -TPN for nutrition -Pain control as needed -Rest of care per primary team -Will continue to follow Vanesa Ferreira MD 12/29/16
--- NOTE | 2016-12-29 12:00 | DIAGNOSTIC IMAGING REPORT ---
ORBITS FOR MRI HISTORY: 86 years-old Female screening study for metallic density artifacts. COMPARISON: CT head 12/29/2016 TECHNIQUE: 2 views of the orbits were obtained for MRI screening FINDINGS: No metallic density foreign objects are identified. Paranasal sinuses are clear. Nasogastric tube is partially imaged. IMPRESSION: Unremarkable radiographs without radiopaque foreign body. The above report was generated using voice recognition software. It may contain grammatical, syntax or spelling errors. Electronically signed by: Soto Evans M.D. 12/29/2016 11:59 AM Dictated Date/Time: 12/29/2016 11:57 AM
[2016-12-29] MEDS: POTASSIUM CHLR 10MEQ / WTR IV SCH ×4 (12:47→18:03)
--- NOTE | 2016-12-29 13:04 | DIAGNOSTIC IMAGING REPORT ---
BRAIN COMBO HISTORY: 86 years-old Female r/o stroke, dec level of consciousness COMPARISON: Head CT 12/29/2016. TECHNIQUE: Multiplanar multisequence MRI of the brain was obtained both with and without the use of 8 mL Gadavist. FINDINGS: The large [id number] pre sales architect localizer images demonstrate no gross abnormality. There is a large area of restricted diffusion involving the left cerebral hemisphere involving both the MCA and NOAH distributions. There is sparing of the posterior left parietal and occipital lobes. This involves the majority of the left frontal, temporal and parietal lobes as well as the left basal ganglia. There is no associated abnormal enhancement within this distribution. There is mildly increased T2/FLAIR signal abnormality involving the cortex and shaikh-white differentiation in the distribution of the infarction with partial sulcal effacement. No associated hemorrhagic transformation identified. There is background moderate cerebral atrophy with chronic microvascular ischemic changes. Gliosis surrounds a remote infarction of the right temporal lobe. There is loss of flow void within the left carotid terminus seen nicely on image 9 of series 6 with loss of flow void also noted within the left M1 segment. Orbits are symmetric. Bilateral mastoid effusions are noted. There is mild mucosal disease of the ethmoid sinuses. IMPRESSION: 1. Loss of flow void within the left carotid terminus and left M1 segment is noted suggesting thrombus with associated very large acute ischemic infarction involving the cerebral hemisphere within the MCA and NOAH distribution. There is associated partial sulcal effacement and edema within this distribution without midline shift or associated hemorrhage at this time. 2. Background atrophy with chronic microvascular ischemic changes and remote right temporal lobe infarction. 3. Bilateral mastoid effusions. The above report was generated using voice recognition software. It may contain grammatical, syntax or spelling errors. Electronically signed by: Soto Evans M.D. 12/29/2016 1:02 PM Dictated Date/Time: 12/29/2016 12:51 PM
[2016-12-29] MEDS ORDERED: ASPIRIN 325 MG ECTAB PO STA (13:18)
[2016-12-29] MEDS ORDERED: ATORVASTATIN 40 MG TAB PO ONE (13:18)
[2016-12-29] MEDS ORDERED: HydrALAZINE HCL 20 MG/ML VIAL IV. PRN (15:00)
--- NOTE | 2016-12-29 15:24 | Progress Note ---
Subjective Date of Service: Dec 29, 2016. Subjective Pt evaluation today including: conversation w/ patient, conversation w/ family , physical exam, chart review, lab review, review of studies, conversation w/ databases computer consultant, review of inpatient medication list Acute left sided stroke this AM Pt unresponsive Right sided neglect Son at bedside No distress noted Problem List Medical Problems: (1) Atrial fibrillation and flutter Status: Acute (2) Atrial fibrillation with RVR Status: Acute (3) UTI (urinary tract infection) Status: Acute Review of Systems Unable to obtain as pt is nonresponsive Objective Vital Signs Date Time Temp Pulse Resp B/P (MAP) Pulse Ox O2 Delivery O2 Flow Rate FiO2 12/29/16 11:36 36.9 111 20 169/83 (111) 92 12/29/16 08:00 Nasal Cannula 2.0 12/29/16 08:00 36.5 138 22 152/91 (111) 93 Nasal Cannula 2.0 12/29/16 07:00 165 175/90 12/29/16 04:00 Nasal Cannula 2.0 12/29/16 03:16 37.0 90 22 161/79 (106) 92 Nasal Cannula 2.0 12/29/16 00:47 134 161/80 12/29/16 00:00 Nasal Cannula 2.0 12/28/16 23:09 37.0 91 24 161/80 (107) 92 Nasal Cannula 2.0 12/28/16 20:29 36.9 96 22 163/77 (105) 91 Nasal Cannula 2.0 12/28/16 20:00 97 Nasal Cannula 2.0 12/28/16 16:00 97 Nasal Cannula 2.0 Physical Exam General Appearance: WD/WN, no apparent distress Eyes: normal inspection, PERRL, EOMI, sclerae normal Neck: supple, no adenopathy, thyroid normal, no JVD Respiratory/Chest: chest non-tender, lungs clear, normal breath sounds, no respiratory distress Cardiovascular: no edema, no gallop, no JVD, + tachycardia, + irregularly irregular Abdomen: non tender, soft, no organomegaly Extremities: non-tender, normal inspection, + pedal edema Neurologic/Psychiatric: + motor weakness (left sided weakness, right sided neglect), + pertinent finding Skin: normal color, warm/dry, no rash Lymphatic: no adenopathy Laboratory Results Last 24 Hours Test 12/28/16 18:23 12/28/16 23:57 12/29/16 04:21 12/29/16 05:35 Bedside Glucose 256 mg/dl 210 mg/dl 246 mg/dl White Blood Count 20.32 K/uL Red Blood Count 4.81 M/uL Hemoglobin 15.3 g/dL Hematocrit 44.4 % Mean Corpuscular Volume 92.3 fL Mean Corpuscular Hemoglobin 31.8 pg Mean Corpuscular Hemoglobin Concent 34.5 g/dl Platelet Count 200 K/uL Mean Platelet Volume 11.2 fL Neutrophils (%) (Auto) 95.1 % Lymphocytes (%) (Auto) 1.4 % Monocytes (%) (Auto) 2.9 % Eosinophils (%) (Auto) 0.0 % Basophils (%) (Auto) 0.0 % Neutrophils # (Auto) 19.31 K/uL Lymphocytes # (Auto) 0.28 K/uL Monocytes # (Auto) 0.59 K/uL Eosinophils # (Auto) 0.00 K/uL Basophils # (Auto) 0.01 K/uL RDW Standard Deviation 46.6 fL RDW Coefficient of Variation 13.9 % Immature Granulocyte % (Auto) 0.6 % Immature Granulocyte # (Auto) 0.13 K/uL Sodium Level 140 mmol/L Potassium Level 3.4 mmol/L Chloride Level 105 mmol/L Carbon Dioxide Level 28 mmol/L Anion Gap 7.0 mmol/L Blood Urea Nitrogen 32 mg/dl Creatinine 0.80 mg/dl Est Creatinine Clear Calc Drug Dose 50.7 ml/min Estimated GFR () 76.8 Estimated GFR (Non- 66.3 BUN/Creatinine Ratio 39.5 Random Glucose 262 mg/dl Calcium Level 8.2 mg/dl Phosphorus Level 3.1 mg/dl Magnesium Level 2.3 mg/dl Test 12/29/16 07:47 12/29/16 11:12 Troponin I < 0.015 ng/ml Bedside Glucose 270 mg/dl Assessment and Plan 86 y/o female with a history of a-fib, HTN, HLD, CVA, diastolic CHF, depression and dementia who presented to the ED on 12/21 from [facility] with vomiting x 2 days. Pt afebrile on arrival. Tachycardic, in a-fib with RVR and hypoxic with O2 sat 88% on room air. Pt does not typically wear oxygen although son states she is supposed to. The patient was given Lopressor 5 mg IV x 1 with no control of rate. Pt then placed on diltiazem drip with 20 mg bolus and is now rate controlled, BP stable. EKG shows a-fib with RVR, no ischemic changes. CXR suggestive of pulmonary edema. WBC elevated at 24.02. POC lactic acid 2.96. Cardiac enzymes negative. UA 4+ bacteria but also high in epithelial cells. Pt given IVF and Rocephin in ED. SBO/?colitis -CT abd/pelvis 12/23 depicted PSBO, kept NPO and started on IV zosyn, switched to IV rocephin 2 grams daily in addition to flagyl 500 mg IV TID -Gen surg consulted, repeat KUB, started on hyperalimentation on 12/27, PICC line placed, pharmacy consulted for TPN, cont solumedrol 60 mg IV TID -Leukocytosis improving Acute left MCA/NOAH stroke -Pt found unresponsive with right sided neglect on 12/29, MRI confirmed large MCA /NOAH ischemic stroke, Spoke with Dr Agudelo (neurologist at [facility]) who recommeneded no acute intervention at this time. TPA was not given due to no exact time known for onset of symptoms. Started on ASA 325 mg in addition to atorvastatin 80 mg, neurology consulted. Sepsis likely UTI -Admitted to telemetry -Blood cultures x 2 NGTD, although pt did receive 1 dose Rocephin before they could be drawn -Urine culture currently growing out E Coli -C. diff and stool cultures neg -Monitor for fluid overload due to h/o CHF, edematous state, started on lasix 40 mg PO BID -Cont antibx listed above A-fib with RVR--Tachycardia resolved, dilt drip dced, cont PO dilt -EKG q am and prn with chest pain HTN, HLD, h/o CVA--stable -Continue lisinopril 2.5 mg PO qd Chronic diastolic CHF--stable, no acute exacerbation. CXR suggests pulmonary edema but does not sound wet on exam. More likely dehydrated due to vomiting/ sepsis -Restarted on lasix 40 mg PO BID -Daily weights, I's & O's GI prophylaxis -Maalox Max 15 mL PO q4h prn dyspepsia -Milk of magnesia 30 mL PO q6h prn constipation -Miralax 17 gm PO qd prn constipation -Zofran 4 mg IV q6h prn nausea DVT prophylaxis -Heparin 5000 units SC q8h -MANUEL Enniss Code Status -Level V, DO NOT RESUSCITATE
[2016-12-29] MEDS ORDERED: ASPIRIN 300 MG SUPP PR ONE (15:30)
[2016-12-29] MEDS ORDERED: CUSTOM CENTRAL PN 1 BAG IV SCH (16:00)
[2016-12-29] MEDS: ACETAMINOPHEN 325 MG TAB PO PRN (20:46)
[2016-12-30] MEDS: INSULIN ASPART 100 UNITS/ML 3 ML PEN SC SCH ×3 (00:34→11:57)
[2016-12-30] MEDS: METOPROLOL TARTRATE 1 MG/ML VIAL IV PRN ×2 (03:19→10:26)
[2016-12-30 03:55] VITALS: BP 166/83; PULSE 105; TEMP 37.8; O2SAT 95
[2016-12-30] MEDS: METHYLPREDNISOLONE IV 60 MG in SYRINGE 0 ML IV SCH ×2 (04:31→11:26)
[2016-12-30] MEDS: METRONIDAZOLE / NSS 500 MG in PREMIXED NSS 100 ML IV SCH ×2 (04:31→11:25)
[2016-12-30] MEDS: ACETAMINOPHEN 325 MG TAB PO PRN (04:31)
[2016-12-30 05:58] LABS: COMPLETE YES; HEMATOCRIT 44.7 % (37-47); IG% 0.8 %; LYMPH % 3.2 %; LYMPH ABS # 0.63 K/uL (1.2-3.4); MEAN CELL VOLUME 95.3 fL (80-100); MEAN CORPUSCULAR HEMOGLOBIN 30.5 pg (25-34); MEAN PLATELET VOLUME 11.4 fL (7.4-10.4); MONO % 2.8 %; NEUT % 93.2 %; PLATELET COUNT 188 K/uL (130-400); RED BLOOD COUNT 4.69 M/uL (4.2-5.4); WHITE BLOOD COUNT 19.48 K/uL (4.8-10.8)
[2016-12-30] MEDS: HEPARIN SOD 5000 UNIT/0.5 ML CARP SQ SCH ×2 (06:27→14:47)
[2016-12-30 06:30] VITALS: TEMP 36.9
[2016-12-30 06:50] LABS: CALCIUM 8.2 mg/dl (8.5-10.1); CREATININE 0.97 mg/dl (0.60-1.20); MAGNESIUM 2.4 mg/dl (1.8-2.4); PHOSPHORUS 3.2 mg/dl (2.5-4.9); POTASSIUM 4.3 mmol/L (3.5-5.1)
[2016-12-30 07:03] LABS: BETA-HYDROXYBUTYRATE 0.86 mg/dL (0.2-2.81)
[2016-12-30 07:26] VITALS: BP 203/124; PULSE 139; TEMP 37.2; O2SAT 93
[2016-12-30] MEDS: HydrALAZINE HCL 20 MG/ML VIAL IV. PRN (08:16)
[2016-12-30] MEDS: NEPHROCAPS PO SCH (09:00)
[2016-12-30] MEDS ORDERED: FUROSEMIDE 40 MG TAB NG SCH (09:00)
[2016-12-30] MEDS ORDERED: ATORVASTATIN 40 MG TAB NG SCH (09:00)
[2016-12-30] MEDS ORDERED: ATORVASTATIN 40 MG TAB PO SCH (09:00)
--- NOTE | 2016-12-30 09:22 | Neurology Consultation ---
Neurology Consultation Date of Consultation: Dec 30, 2016. Attending Physician: Josef Lucia MD, PhD Primary Care Physician: Romario Dominguez M.D. Reason for Consultation: Consultation for stroke History of Present Illness Source: family, hospital records This is a 86-year-old female who presented with acute abdominal pain likely secondary to partial small bowel obstruction and UTI sepsis. Yesterday morning had acute change in mental status and unresponsiveness. MRI early in the afternoon showed an acute left M1 ischemic stroke. Patient's son's this morning notes that she sometimes moves her left hand but is not moving the right side of her body. Occasionally will open her eyes and look around but otherwise is fairly unresponsive. They report that before this she was living in an [facility]. She was spending most of her time in bed but she was able to get up and walk with the assistance of a walker. She did have vascular dementia and other people were managing her medications. Unfortunately her just a week ago before then she was living at home with him taking care of her. She is able to feed herself but needs assistance with dressing. In addition the patient has a significant history for having a right temporal ischemic stroke in the past. Likely secondary to A. fib. The patient was on anticoagulation up until 2012 in which she had a GI bleed and melanoma. GI workup was done and Coumadin was stopped. It is believed that may be the source of bleeding was diverticulosis versus ischemic colitis. No exact source of the bleeding was found and endoscopy was difficult. It appears the patient has been off of anticoagulation since this time. Past Medical/Surgical History Medical Problems: (1) Atrial fibrillation and flutter Status: Acute (2) Atrial fibrillation with RVR Status: Acute (3) UTI (urinary tract infection) Status: Acute Hypertension, dyslipidemia, A. fib with RVR, history of right temporal stroke and vascular dementia, diastolic CHF, depression, CKD, diverticulosis Family History Family history severe for CAD, stroke, hypertension Father: pertinent history of Social History Patient recently was living at home with her taking care of her, but unfortunately her was hospitalized and about a week ago. Patient has more recently been living in [facility]. She was able to walk with the assistance of walker. With spending a lot of time in bed sleeping. He was not able to manage her own medications. Was able to feed herself. Needed assistance with dressing and hygiene. Smoking Status: Unknown if ever smoked Smokeless Tobacco Use: No Alcohol Use: none Drug Use: none Marital Status: Housing Status: [facility] ([facility]) Occupation Status: retired Allergies Coded Allergies: Bupropion (Verified Allergy, Mild, 12/21/16) Carbamazepine (Verified Allergy, Unknown, UNKNOWN, 12/23/16) Sulfa Antibiotics (Verified Allergy, Unknown, UNKNOWN, 12/23/16) Venlafaxine (Verified Allergy, Unknown, UNKNOWN, 12/23/16) Lorazepam (Verified Adverse Reaction, Intermediate, HALLUCINATIONS, RESTLESNESS, 06/08/14) FAMILY PROVIDED INFORMATION. Anesthetics, Halogenated (Verified Adverse Reaction, Mild, GENERAL ANESTHESIA-SEVERE INSOMNIA, 06/08/14) Zolpidem (Verified Adverse Reaction, Mild, HALLUCINATIONS, 12/21/16) Current Inpatient Medications Current Inpatient Medications Medications (Trade) Dose Ordered Sig/Jonah Route Start Time Stop Time Status Last Admin Dose Admin Heparin Sodium (Porcine) (Heparin Sq 5000 Unit/0.5ml) 5,000 unit Q8 SQ 12/21/16 22:00 01/20/17 21:59 12/30/16 06:27 5,000 UNIT Acetaminophen (Tylenol Tab) 650 mg Q4H PRN PO 12/21/16 13:15 01/20/17 13:14 12/30/16 04:31 650 MG Al Hydrox/Mg Hydrox/Simethicone (Maalox Max Susp) 15 ml Q4H PRN PO 12/21/16 13:15 01/20/17 13:14 Magnesium Hydroxide (Milk Of Magnesia Susp) 30 ml Q12H PRN PO 12/21/16 13:15 01/20/17 13:14 Ondansetron HCl (Zofran Inj) 4 mg Q6H PRN IV 12/21/16 13:15 01/20/17 13:14 12/23/16 23:43 4 MG Polyethylene (Miralax Powder Packet) 17 gm DAILY PRN PO 12/21/16 13:15 01/20/17 13:14 Vitamin B Complex/ Vit C/Folic Acid (Nephrocaps) 1 cap DAILY PO 12/22/16 09:00 01/21/17 08:59 12/27/16 09:24 1 CAP Heparin Sodium (Porcine) (Heparin 10 Unit/ ml 5 ml Flush) 5 ml PRN PRN FLUSH 12/21/16 19:15 01/20/17 19:14 Hydralazine HCl (HydrALAZINE INJ) 10 mg Q4 PRN IV. 12/23/16 12:00 01/22/17 11:59 12/30/16 08:16 10 MG Metoprolol Tartrate (Lopressor Iv) 5 mg Q4H PRN IV 12/24/16 05:30 01/23/17 05:29 12/30/16 03:19 5 MG Ceftriaxone Sodium 2000 mg/ Dextrose 70 ml @ 100 mls/hr Q24H IV 12/26/16 10:00 01/05/17 09:59 12/29/16 10:10 100 MLS/HR Metronidazole 500 mg/Prmx 100 ml @ 100 mls/hr Q8H IV 12/26/16 12:00 01/05/17 11:59 12/30/16 04:31 100 MLS/HR Methylprednisolone Sodium Succinate 60 mg/Syringe 0.96 ml @ 1.5 mls/min Q8@0400,1200,2000 IV 12/26/16 12:00 01/25/17 11:59 12/30/16 04:31 1.5 MLS/MIN Lisinopril (Zestril Tab) 2.5 mg QAM NG 12/28/16 09:00 01/27/17 08:59 12/29/16 07:57 2.5 MG Potassium Chloride (Flor Ciel Elix) 20 meq QAM NG 12/28/16 09:00 01/27/17 08:59 12/29/16 07:56 20 MEQ Miscellaneous Information (Pharmacy Tpn/ Ppn Consult Active) 1 ea UD PRN N/A 12/27/16 13:00 01/26/17 12:59 Glucose (Glucose 40% Gel) 15-30 GRAMS 15 GRAMS... UD PRN PO 12/27/16 14:45 01/26/17 14:44 Glucose (Glucose Chew Tab) 4-8 Tablets 4 Tabl... UD PRN PO 12/27/16 14:45 01/26/17 14:44 Dextrose (Dextrose 50% 50ML Syringe) 25-50ML OF 50% DW IV FOR... UD PRN IV 12/27/16 14:45 01/26/17 14:44 Glucagon (Glucagon Inj) 1 mg UD PRN SQ 12/27/16 14:45 01/26/17 14:44 Insulin Aspart (novoLOG ASPART) SLIDING SCALE Q6 SC 12/27/16 18:00 01/26/17 17:59 12/30/16 06:27 4 UNITS Dextrose 1,000 ml @ 0 mls/hr Q0M PRN IV 12/27/16 14:50 01/26/17 14:49 Furosemide (Lasix Tab) 40 mg BID PO 12/28/16 09:00 01/27/17 08:59 12/29/16 20:47 40 MG Nutrition (Parenteral) 0 ml @ 0 mls/hr TODAY@1600 IV 12/29/16 16:00 12/30/16 15:59 12/29/16 15:52 47.3 MLS/HR Diltiazem HCl (Cardizem Tab) 60 mg TID NG 12/29/16 14:00 01/28/17 13:59 12/29/16 20:47 60 MG Atorvastatin Calcium (Lipitor Tab) 80 mg QAM PO 12/30/16 09:00 01/29/17 08:59 Hydralazine HCl (HydrALAZINE INJ) 10 mg Q4 PRN IV. 12/29/16 15:00 01/28/17 14:59 Review of Systems Review of systems is not obtainable due to mental status Physical Exam Vital Signs (Past 24 Hrs): Date Time Temp Pulse Resp B/P (MAP) Pulse Ox O2 Delivery O2 Flow Rate FiO2 12/30/16 07:26 37.2 139 22 203/124 (150) 93 Nasal Cannula 1.0 12/30/16 06:30 36.9 12/30/16 04:00 Nasal Cannula 2.0 12/30/16 03:55 37.8 105 26 166/83 (110) 95 Nasal Cannula 2.0 12/30/16 03:19 165 152/86 12/30/16 00:00 Nasal Cannula 2.0 12/29/16 23:55 36.3 115 28 152/86 (108) 91 Room Air 12/29/16 23:23 37.2 12/29/16 20:00 Nasal Cannula 2.0 12/29/16 19:58 156 156/88 12/29/16 19:52 37.8 144 26 156/88 (110) 95 Nasal Cannula 1.0 12/29/16 17:08 139/87 (104) 12/29/16 15:44 37.0 100 24 192/111 (138) 12/29/16 15:30 Nasal Cannula 2.0 12/29/16 11:36 36.9 111 20 169/83 (111) 92 Gen.: Patient is fairly obtunded and minimally responsive HEENT: Normocephalic /atraumatic, no scleral icterus Heart: Regular rate and rhythm Extremities: No gross deformities or rashes noted. Significant edema in extremities Neurological examination: Mental status: Patient is fairly obtunded. Does not follow verbal commands. Does resist eye opening. No speech is produced. Cranial nerve: Funduscopic examination was poorly visualized, but unremarkable. No papilledema. Pupils equally round and reactive to light. No facial asymmetry noted at rest. Facial sensation grossly intact. The rest of cranial nerves were difficult to obtain due to mental status Strength and sensation: Patient squeezed her left hand minimally, but otherwise no movement of extremities. Did not withdrawal to deep nailbed pressure on bilateral feet or right arm. Deep tendon reflexes: +1 in bilateral biceps, brachioradialis and patellar. Toes were downgoing to plantar stimulation on the left but upgoing on the right. Patient unable to participate in formal coordination testing or gait due to mental status and neurological status. Laboratory Results Past 24 Hours: 12/30/16 05:35 Red Blood Count 4.69, Mean Corpuscular Volume 95.3, Mean Corpuscular Hemoglobin 30.5, Mean Corpuscular Hemoglobin Concent 32.0, Mean Platelet Volume 11.4, Neutrophils (%) (Auto) 93.2, Lymphocytes (%) (Auto) 3.2, Monocytes (%) (Auto) 2.8, Eosinophils (%) (Auto) 0.0, Basophils (%) (Auto) 0.0, Neutrophils # (Auto) 18.16, Lymphocytes # (Auto) 0.63, Monocytes # (Auto) 0.54, Eosinophils # (Auto) 0.00, Basophils # (Auto) 0.00 12/30/16 05:35 Test 12/30/16 05:35 12/30/16 06:08 White Blood Count 19.48 K/uL (4.8-10.8) Red Blood Count 4.69 M/uL (4.2-5.4) Hemoglobin 14.3 g/dL (12.0-16.0) Hematocrit 44.7 % (37-47) Mean Corpuscular Volume 95.3 fL (80-100) Mean Corpuscular Hemoglobin 30.5 pg (25-34) Mean Corpuscular Hemoglobin Concent 32.0 g/dl (32-36) Platelet Count 188 K/uL (130-400) Mean Platelet Volume 11.4 fL (7.4-10.4) Neutrophils (%) (Auto) 93.2 % Lymphocytes (%) (Auto) 3.2 % Monocytes (%) (Auto) 2.8 % Eosinophils (%) (Auto) 0.0 % Basophils (%) (Auto) 0.0 % Neutrophils # (Auto) 18.16 K/uL (1.4-6.5) Lymphocytes # (Auto) 0.63 K/uL (1.2-3.4) Monocytes # (Auto) 0.54 K/uL (0.11-0.59) Eosinophils # (Auto) 0.00 K/uL (0-0.5) Basophils # (Auto) 0.00 K/uL (0-0.2) RDW Standard Deviation 49.5 fL (36.4-46.3) RDW Coefficient of Variation 14.4 % (11.5-14.5) Immature Granulocyte % (Auto) 0.8 % Immature Granulocyte # (Auto) 0.15 K/uL (0.00-0.02) Anion Gap 7.0 mmol/L (3-11) Est Creatinine Clear Calc Drug Dose 42.3 ml/min Estimated GFR () 60.9 Estimated GFR (Non- 52.5 BUN/Creatinine Ratio 40.0 (10-20) Calcium Level 8.2 mg/dl (8.5-10.1) Phosphorus Level 3.2 mg/dl (2.5-4.9) Magnesium Level 2.4 mg/dl (1.8-2.4) Beta-Hydroxybutyric Acid 0.86 mg/dL (0.2-2.81) Bedside Glucose 250 mg/dl (70-90) Imaging MRI of the brain report and images were reviewed by myself. The patient has an extremely large and extensive left M1 hemispheric ischemic stroke. At this time there is no significant edema or hemorrhagic conversion. Impression This is a 86-year-old female with a very large M1 left hemispheric ischemic stroke. Likely secondary to A. fib not on anticoagulation due to history of GI bleed. Residual neurological deficits include acute encephalopathy, dense right hemiplegia, right hemisensory deficits, aphasia, gait dysfunction and likely dysphasia. Known stroke risk factors include A. fib not on anticoagulation, previous right temporal ischemic stroke, hypertension, dyslipidemia. Overall neurological prognosis is fairly poor and patient is at high risk of brain edema and hemorrhagic conversion. Plan Discussed extensively with the patient's sons in the room about what she would want and goals of care. Overall they do not feel that she would want anything aggressive such as intubation or surgery. I did discuss that there is a high likelihood of brain edema and compression of the brain in the next few coming days. Discussed that typically, if we were to be aggressive, and if this happened, we would send her to [facility] for neurosurgical intervention to remove her skull to allow for swelling. This would also likely require intubation for some period of time. Discussed that overall neurological prognosis for meaningful recovery is low considering that she already has had an ischemic stroke in the right temporal lobe and now she has had an extensive stroke involving most of her left hemisphere. Discussed that she would likely not be able to have the use of her right side, would not be able to use language, would not be able to feed or dress herself, etc. Also discussed that there is a high chance that she would be bedbound and needing total care if she survives this event. Patient is at high risk for additional strokes with A. fib not on anticoagulation. Patient apparently had a GI bleed in 2012 with source of bleeding not definitively sound. Certainly if the patient went back on to anticoagulation she would be at risk for bleeding complications in the future. Discussed palliative care consult with family. Sons would appreciate this consult and I have placed this consult this morning. Discussed that I think that there is a high likelihood of her dying from her stroke and medical complications in the next week, but sometimes we never know. Blood pressure recommendations while in hospital 175/95-150/80 Avoid hypotension and dehydration Typically I recommend additional stroke workup to include CTA or MRA of the head and neck to rule out critical stenosis and echocardiogram, but considering patient's poor prognosis and family's wishes for no aggressive care, I held off on ordering these additional test is at its unlikely to change outcome in the near future. If by chance the patient survives the next week, these will need to be reconsidered. I did order a hemoglobin A1c and lipid profile for stroke risk factor modifications to be drawn at her next blood draw. Total cholesterol goal 100- 200 and LDL goal less than 100 Hemoglobin A1c goal less than 7 If the patient does survive the next week, should consider PT/OT and speech evaluation and therapy. If the patient does survive the next week, Blood pressure recommendations for the first month post hospital discharge 150/90-130/80, and after that blood pressure recommendations 130/80-110/70 Thank you for allowing me to participate in this patient's care. If there is any questions or concerns, feel free to call/page me.
[2016-12-30] MEDS ORDERED: NURSING VERBAL MED ORDER ONE ×2 (09:45→11:30)
[2016-12-30] MEDS: CEFTRIAXONE SOD INJ 2,000 MG in DEXTROSE 5% 50ML 50 ML IV SCH (10:00)
[2016-12-30] MEDS: LISINOPRIL 2.5 MG TAB NG SCH (10:12)
[2016-12-30] MEDS: POTASSIUM CHLORIDE 20 MEQ/15 ML UDC NG SCH (10:17)
[2016-12-30] MEDS: DILTIAZEM HCL 60 MG TAB NG SCH ×2 (10:18→14:42)
--- NOTE | 2016-12-30 10:38 | Surgery Progress Note ---
Surgery Progress Note Date of Service Dec 30, 2016. Subjective large left CVA, family at bedside, pt not as responsive as last evening, several BM over the weekend, NG clamped Objective Vital Signs: Date Time Temp Pulse Resp B/P (MAP) Pulse Ox O2 Delivery O2 Flow Rate FiO2 12/30/16 10:26 105 203/124 12/30/16 07:26 37.2 139 22 203/124 (150) 93 Nasal Cannula 1.0 12/30/16 06:30 36.9 12/30/16 04:00 Nasal Cannula 2.0 12/30/16 03:55 37.8 105 26 166/83 (110) 95 Nasal Cannula 2.0 12/30/16 03:19 165 152/86 12/30/16 00:00 Nasal Cannula 2.0 12/29/16 23:55 36.3 115 28 152/86 (108) 91 Room Air 12/29/16 23:23 37.2 12/29/16 20:00 Nasal Cannula 2.0 12/29/16 19:58 156 156/88 12/29/16 19:52 37.8 144 26 156/88 (110) 95 Nasal Cannula 1.0 12/29/16 17:08 139/87 (104) 12/29/16 15:44 37.0 100 24 192/111 (138) 12/29/16 15:30 Nasal Cannula 2.0 12/29/16 11:36 36.9 111 20 169/83 (111) 92 Abdomen: non distended, soft Laboratory Results: Results Past 24 Hours Test 12/29/16 11:12 12/29/16 18:02 12/30/16 00:30 12/30/16 05:35 Range/Units Bedside Glucose 270 290 275 70-90 mg/dl White Blood Count 19.48 4.8-10.8 K/uL Red Blood Count 4.69 4.2-5.4 M/uL Hemoglobin 14.3 12.0-16.0 g/dL Hematocrit 44.7 37-47 % Mean Corpuscular Volume 95.3 80-100 fL Mean Corpuscular Hemoglobin 30.5 25-34 pg Mean Corpuscular Hemoglobin Concent 32.0 32-36 g/dl Platelet Count 188 130-400 K/uL Mean Platelet Volume 11.4 7.4-10.4 fL Neutrophils (%) (Auto) 93.2 % Lymphocytes (%) (Auto) 3.2 % Monocytes (%) (Auto) 2.8 % Eosinophils (%) (Auto) 0.0 % Basophils (%) (Auto) 0.0 % Neutrophils # (Auto) 18.16 1.4-6.5 K/uL Lymphocytes # (Auto) 0.63 1.2-3.4 K/uL Monocytes # (Auto) 0.54 0.11-0.59 K/uL Eosinophils # (Auto) 0.00 0-0.5 K/uL Basophils # (Auto) 0.00 0-0.2 K/uL RDW Standard Deviation 49.5 36.4-46.3 fL RDW Coefficient of Variation 14.4 11.5-14.5 % Immature Granulocyte % (Auto) 0.8 % Immature Granulocyte # (Auto) 0.15 0.00-0.02 K/uL Sodium Level 144 136-145 mmol/L Potassium Level 4.3 3.5-5.1 mmol/L Chloride Level 108 98-107 mmol/L Carbon Dioxide Level 29 21-32 mmol/L Anion Gap 7.0 3-11 mmol/L Blood Urea Nitrogen 39 7-18 mg/dl Creatinine 0.97 0.60-1.20 mg/dl Est Creatinine Clear Calc Drug Dose 42.3 ml/min Estimated GFR () 60.9 Estimated GFR (Non- 52.5 BUN/Creatinine Ratio 40.0 10-20 Random Glucose 324 70-99 mg/dl Calcium Level 8.2 8.5-10.1 mg/dl Phosphorus Level 3.2 2.5-4.9 mg/dl Magnesium Level 2.4 1.8-2.4 mg/dl Beta-Hydroxybutyric Acid 0.86 0.2-2.81 mg/dL Test 12/30/16 06:08 Range/Units Bedside Glucose 250 70-90 mg/dl Microbiology Results 12/29/16 Blood Culture, Received Pending 12/29/16 Blood Culture, Received Pending 12/29/16 Urine Culture, Received Pending Assessment & Plan CVA seen by neurology, prognosis is poor PSBO improved, NG being used for meds, will leave it up to primary service to remove will sign off
[2016-12-30] MEDS: MoRPHine SULFATE 2 MG/ML CARP IV PRN ×2 (11:43→14:53)
[2016-12-30 12:00] VITALS: BP 203/124; PULSE 139; TEMP 37.2; O2SAT 93
[2016-12-30 12:10] VITALS: BP 180/120; PULSE 94; TEMP 37.3; O2SAT 91
--- NOTE | 2016-12-30 12:57 | Progress Note ---
Subjective Date of Service: Dec 30, 2016. Subjective Pt evaluation today including: conversation w/ family, physical exam, chart review, lab review, review of studies, conversation w/ real estate consultant, review of inpatient medication list She has been total unresponsive, obvious distress, labored breathing with abdominal movement, having mild fever MAXIMUM TEMPERATURE 37.8 Problem List Medical Problems: (1) Atrial fibrillation and flutter Status: Acute (2) Atrial fibrillation with RVR Status: Acute (3) UTI (urinary tract infection) Status: Acute Review of Systems Constitutional: + problem reported (not able to obtain because of unresponsive) Objective Vital Signs Date Time Temp Pulse Resp B/P (MAP) Pulse Ox O2 Delivery O2 Flow Rate FiO2 12/30/16 12:35 Nasal Cannula 2.0 12/30/16 12:10 37.3 94 22 180/120 (140) 91 Nasal Cannula 1.0 12/30/16 12:00 37.2 139 22 203/124 (150) 93 Nasal Cannula 2.0 12/30/16 10:26 105 203/124 12/30/16 07:26 37.2 139 22 203/124 (150) 93 Nasal Cannula 1.0 12/30/16 06:30 36.9 12/30/16 04:00 Nasal Cannula 2.0 12/30/16 03:55 37.8 105 26 166/83 (110) 95 Nasal Cannula 2.0 12/30/16 03:19 165 152/86 12/30/16 00:00 Nasal Cannula 2.0 12/29/16 23:55 36.3 115 28 152/86 (108) 91 Room Air 12/29/16 23:23 37.2 12/29/16 20:00 Nasal Cannula 2.0 12/29/16 19:58 156 156/88 12/29/16 19:52 37.8 144 26 156/88 (110) 95 Nasal Cannula 1.0 12/29/16 17:08 139/87 (104) 12/29/16 15:44 37.0 100 24 192/111 (138) 12/29/16 15:30 Nasal Cannula 2.0 Physical Exam General Appearance: + pertinent finding (acute distress, labored breathing, face is flushed red,) Eyes: + pertinent finding (pupils are sluggish) Respiratory/Chest: + respiratory distress, + decreased breath sounds, + accessory muscle use Cardiovascular: regular rate, rhythm, no edema, + tachycardia Abdomen: soft, + pertinent finding (possible and positive) Extremities: + pertinent finding (normal movement) Neurologic/Psychiatric: + pertinent finding (unresponsive, not able to assess) Skin: warm/dry Laboratory Results Last 24 Hours Test 12/29/16 18:02 12/30/16 00:30 12/30/16 05:35 12/30/16 06:08 Bedside Glucose 290 mg/dl 275 mg/dl 250 mg/dl White Blood Count 19.48 K/uL Red Blood Count 4.69 M/uL Hemoglobin 14.3 g/dL Hematocrit 44.7 % Mean Corpuscular Volume 95.3 fL Mean Corpuscular Hemoglobin 30.5 pg Mean Corpuscular Hemoglobin Concent 32.0 g/dl Platelet Count 188 K/uL Mean Platelet Volume 11.4 fL Neutrophils (%) (Auto) 93.2 % Lymphocytes (%) (Auto) 3.2 % Monocytes (%) (Auto) 2.8 % Eosinophils (%) (Auto) 0.0 % Basophils (%) (Auto) 0.0 % Neutrophils # (Auto) 18.16 K/uL Lymphocytes # (Auto) 0.63 K/uL Monocytes # (Auto) 0.54 K/uL Eosinophils # (Auto) 0.00 K/uL Basophils # (Auto) 0.00 K/uL RDW Standard Deviation 49.5 fL RDW Coefficient of Variation 14.4 % Immature Granulocyte % (Auto) 0.8 % Immature Granulocyte # (Auto) 0.15 K/uL Sodium Level 144 mmol/L Potassium Level 4.3 mmol/L Chloride Level 108 mmol/L Carbon Dioxide Level 29 mmol/L Anion Gap 7.0 mmol/L Blood Urea Nitrogen 39 mg/dl Creatinine 0.97 mg/dl Est Creatinine Clear Calc Drug Dose 42.3 ml/min Estimated GFR () 60.9 Estimated GFR (Non- 52.5 BUN/Creatinine Ratio 40.0 Random Glucose 324 mg/dl Calcium Level 8.2 mg/dl Phosphorus Level 3.2 mg/dl Magnesium Level 2.4 mg/dl Beta-Hydroxybutyric Acid 0.86 mg/dL Test 12/30/16 11:36 Bedside Glucose 271 mg/dl Assessment and Plan 86 y/o female with a history of a-fib, HTN, HLD, CVA, diastolic CHF, depression and dementia who presented to the ED on 12/21 from [facility] with vomiting x 2 days. Was found has SBO/?colitis, later developed Acute left MCA/NOAH stroke, she is now unresponsive and in critical condition, family leans to comfort medicine only Per report Pt afebrile on arrival. Tachycardic, in a-fib with RVR and hypoxic with O2 sat 88% on room air. Pt does not typically wear oxygen although son states she is supposed to. The patient was given Lopressor 5 mg IV x 1 with no control of rate. Pt then placed on diltiazem drip with 20 mg bolus and is now rate controlled, BP stable. EKG shows a-fib with RVR, no ischemic changes. CXR suggestive of pulmonary edema. WBC elevated at 24.02. POC lactic acid 2.96. Cardiac enzymes negative. UA 4+ bacteria but also high in epithelial cells. Pt given IVF and Rocephin in ED. SBO/?colitis -CT abd/pelvis 12/23 depicted PSBO, kept NPO and started on IV zosyn, switched to IV rocephin 2 grams daily in addition to flagyl 500 mg IV TID -Gen surg consulted, repeat KUB, started on hyperalimentation on 12/27, PICC line placed, pharmacy consulted for TPN, cont solumedrol 60 mg IV TID Acute left MCA/NOAH stroke Pt found unresponsive with right sided neglect on 12/29, MRI confirmed large MCA/NOAH ischemic stroke, teleneurology completed with [facility], no acute intervention on ASA 325 mg in addition to atorvastatin 80 mg, neurology consulted. Sepsis likely from UTI Continue telemetry Blood cultures x 2 NGTD, although pt did receive 1 dose Rocephin before they could be drawn Urine culture currently growing out E Coli C. diff and stool cultures neg A-fib with RVR--Tachycardia resolved, was on dilt drip dced, HTN, HLD, h/o CVA-- Chronic diastolic CHF GI prophylaxis -Maalox Max 15 mL PO q4h prn dyspepsia -Milk of magnesia 30 mL PO q6h prn constipation -Miralax 17 gm PO qd prn constipation -Zofran 4 mg IV q6h prn nausea Code Status -Level V, DO NOT RESUSCITATE Patient is in poor conditions with multiple sever comorbidities major is CVA with big infarction in the brain which cause her unresponsive and currently has labored breathing patient is in critically very sick and poor prognosis I talked to one of the patient's son, discussed with him about care plan, I personally recommend about comfort methods only Palliative care on the case, we'll waiting patient's family has more discussion and then will give us feedback Continued [facility] stay due to: multiple IV medications needed Discharge planning: uncertain
[2016-12-30 15:47] VITALS: BP 192/118; PULSE 85; TEMP 36.4; O2SAT 95
[2016-12-30] MEDS ORDERED: CUSTOM CENTRAL PN 1 BAG IV SCH (16:00)
[2016-12-30] MEDS ORDERED: HydrALAZINE HCL 20 MG/ML VIAL IV. PRN (16:00)
--- NOTE | 2016-12-30 16:32 | Palliative Care Consultation ---
Consultation Date of Consultation: Dec 30, 2016. Requesting Physician: Dr. Loyd Attending Physician: Dr. Lucia Reason for Consultation: Goals of care History of Present Illness This 78 year old female patient with PMH advanced dementia, afib, htn, HLD, CVA , diastolic CHF, depression and others listed below, presented to the ED nine days ago with c/o vomiting for two days. She comes from [facility], her who was her caregiver just here at [facility] a week ago Friday. History mostly obtained from record as patient is obtunded, family at bedside but provided few details about hospital stay. Patient afebrile on arrival, tachycardic in afib with RVR, hypoxic with O2 sat 88% on room air. Patient was given Lopressor 5 mg IV x 1 then placed on diltiazem drip with 20 mg bolus- rate was then controlled and BP stable. EKG apparently showed afib with RVR, no ischemic changes. CXR was suggestive of pulmonary edema. WBC elevated at 24.02. POC lactic acid 2.96. Cardiac enzymes negative. Given IVF and Rocephin in ED and admitted with sepsis, vomiting and afib with RVR. She was then found to have partial small obstruction with collapsed loops of small bowel in RLQ. Placed on TPN for nutrition, clinical condition not improved. A few days later patient had acute stroke-like symptoms, found to have very large acute ischemic infarction involving the cerebral hemisphere within the MCA and NOAH distribution. Patient lost function of right side completely, she is now not waking up. Neurology following and spoke with family about likely cerebral edema in next couple days. If they wanted to treat aggressively, patient would need to be transferred and have surgery to remove part of skull to allow for swelling, or they could opt for conservative treatment with supportive/comfort measures. Palliative care consulted. This family is well known to me as I care for the patient's for several weeks during hospitalization leading up to his . I met with the patient and her two sons Cleveland and Gilberto in room 210. Patient is obtunded, not opening eyes or responding to any stimuli whatsoever. Sons stated that yesterday she was able to open eyes but was not really responsive. We discussed patient's condition, they confirmed that patient would not be transferred to tertiary care and they did not want aggressive medical care. Sons do want some time to discuss with family on whether or not to discontinue TPN and officially transition to [facility]. In the mean time they would like patient to be more comfortable with some PRN morphine. They will call me when they've made a decision. Past Medical/Surgical History Medical History: ASCVD Atrial fibrillation CVA Depression GI bleed Hyperlipidemia Hypertension Dementia, advanced Diastolic CHF Surgical Problems: Appendectomy Cholecystectomy ORIF of left ankle x2 Sphincterotomy Social History Smoking Status: Never Smoker History of Alcohol Use: No Drug Use: none Marital Status: Housing Status: [facility]) Occupation Status: retired Review of Systems unable to obtain ROS Allergies Coded Allergies: Bupropion (Verified Allergy, Mild, 12/21/16) Carbamazepine (Verified Allergy, Unknown, UNKNOWN, 12/23/16) Sulfa Antibiotics (Verified Allergy, Unknown, UNKNOWN, 12/23/16) Venlafaxine (Verified Allergy, Unknown, UNKNOWN, 12/23/16) Lorazepam (Verified Adverse Reaction, Intermediate, HALLUCINATIONS, RESTLESNESS, 06/08/14) FAMILY PROVIDED INFORMATION. Anesthetics, Halogenated (Verified Adverse Reaction, Mild, GENERAL ANESTHESIA-SEVERE INSOMNIA, 06/08/14) Zolpidem (Verified Adverse Reaction, Mild, HALLUCINATIONS, 12/21/16) Medications Current Inpatient Medications Medications (Trade) Dose Ordered Sig/Jonah Route Start Time Stop Time Status Last Admin Dose Admin Heparin Sodium (Porcine) (Heparin Sq 5000 Unit/0.5ml) 5,000 unit Q8 SQ 12/21/16 22:00 01/20/17 21:59 12/30/16 14:47 5,000 UNIT Acetaminophen (Tylenol Tab) 650 mg Q4H PRN PO 12/21/16 13:15 01/20/17 13:14 12/30/16 04:31 650 MG Al Hydrox/Mg Hydrox/Simethicone (Maalox Max Susp) 15 ml Q4H PRN PO 12/21/16 13:15 01/20/17 13:14 Magnesium Hydroxide (Milk Of Magnesia Susp) 30 ml Q12H PRN PO 12/21/16 13:15 01/20/17 13:14 Ondansetron HCl (Zofran Inj) 4 mg Q6H PRN IV 12/21/16 13:15 01/20/17 13:14 12/23/16 23:43 4 MG Polyethylene (Miralax Powder Packet) 17 gm DAILY PRN PO 12/21/16 13:15 01/20/17 13:14 Vitamin B Complex/ Vit C/Folic Acid (Nephrocaps) 1 cap DAILY PO 12/22/16 09:00 01/21/17 08:59 12/27/16 09:24 1 CAP Heparin Sodium (Porcine) (Heparin 10 Unit/ ml 5 ml Flush) 5 ml PRN PRN FLUSH 12/21/16 19:15 01/20/17 19:14 Metoprolol Tartrate (Lopressor Iv) 5 mg Q4H PRN IV 12/24/16 05:30 01/23/17 05:29 12/30/16 10:26 5 MG Ceftriaxone Sodium 2000 mg/ Dextrose 70 ml @ 100 mls/hr Q24H IV 12/26/16 10:00 01/05/17 09:59 12/30/16 10:00 100 MLS/HR Metronidazole 500 mg/Prmx 100 ml @ 100 mls/hr Q8H IV 12/26/16 12:00 01/05/17 11:59 12/30/16 11:25 100 MLS/HR Methylprednisolone Sodium Succinate 60 mg/Syringe 0.96 ml @ 1.5 mls/min Q8@0400,1200,2000 IV 12/26/16 12:00 01/25/17 11:59 12/30/16 11:26 1.5 MLS/MIN Lisinopril (Zestril Tab) 2.5 mg QAM NG 12/28/16 09:00 01/27/17 08:59 12/30/16 10:12 2.5 MG Potassium Chloride (Flor Ciel Elix) 20 meq QAM NG 12/28/16 09:00 01/27/17 08:59 12/30/16 10:17 20 MEQ Miscellaneous Information (Pharmacy Tpn/ Ppn Consult Active) 1 ea UD PRN N/A 12/27/16 13:00 01/26/17 12:59 Glucose (Glucose 40% Gel) 15-30 GRAMS 15 GRAMS... UD PRN PO 12/27/16 14:45 01/26/17 14:44 Glucose (Glucose Chew Tab) 4-8 Tablets 4 Tabl... UD PRN PO 12/27/16 14:45 01/26/17 14:44 Dextrose (Dextrose 50% 50ML Syringe) 25-50ML OF 50% DW IV FOR... UD PRN IV 12/27/16 14:45 01/26/17 14:44 Glucagon (Glucagon Inj) 1 mg UD PRN SQ 12/27/16 14:45 01/26/17 14:44 Insulin Aspart (novoLOG ASPART) SLIDING SCALE Q6 SC 12/27/16 18:00 01/26/17 17:59 12/30/16 11:57 5 UNITS Dextrose 1,000 ml @ 0 mls/hr Q0M PRN IV 12/27/16 14:50 01/26/17 14:49 Diltiazem HCl (Cardizem Tab) 60 mg TID NG 12/29/16 14:00 01/28/17 13:59 12/30/16 14:42 60 MG Atorvastatin Calcium (Lipitor Tab) 80 mg QAM NG 12/30/16 09:00 01/29/17 08:59 12/30/16 10:14 80 MG Furosemide (Lasix Tab) 40 mg BID NG 12/30/16 09:00 01/29/17 08:59 12/30/16 10:13 40 MG Morphine Sulfate (MoRPHine SULFATE INJ) 2 mg Q4H PRN IV 12/30/16 11:30 01/13/17 11:29 12/30/16 14:53 2 MG Hydralazine HCl (HydrALAZINE INJ) 20 mg Q4 PRN IV. 12/30/16 16:00 01/28/17 14:59 Nutrition (Parenteral) 0 ml @ 0 mls/hr TODAY@1600 IV 12/30/16 16:00 12/31/16 15:59 Physical Exam Date Time Temp Pulse Resp B/P (MAP) Pulse Ox O2 Delivery O2 Flow Rate FiO2 12/30/16 15:47 36.4 85 20 192/118 (142) 95 Nasal Cannula 1.0 12/30/16 12:35 Nasal Cannula 2.0 12/30/16 12:10 37.3 94 22 180/120 (140) 91 Nasal Cannula 1.0 12/30/16 12:00 37.2 139 22 203/124 (150) 93 Nasal Cannula 2.0 12/30/16 10:26 105 203/124 8/28/17 08:00 Nasal Cannula 2.0 12/30/16 07:26 37.2 139 22 203/124 (150) 93 Nasal Cannula 1.0 12/30/16 06:30 36.9 12/30/16 04:00 Nasal Cannula 2.0 12/30/16 03:55 37.8 105 26 166/83 (110) 95 Nasal Cannula 2.0 12/30/16 03:19 165 152/86 12/30/16 00:00 Nasal Cannula 2.0 12/29/16 23:55 36.3 115 28 152/86 (108) 91 Room Air 12/29/16 23:23 37.2 12/29/16 20:00 Nasal Cannula 2.0 12/29/16 19:58 156 156/88 12/29/16 19:52 37.8 144 26 156/88 (110) 95 Nasal Cannula 1.0 12/29/16 17:08 139/87 (104) General Appearance: no apparent distress, + pertinent finding (chronically ill- appearing) Neck: no JVD Respiratory: + decreased breath sounds, + accessory muscle use (mild tachypnea and dyspnea), + pertinent finding (moist respirations) Cardiovascular: regular rate, rhythm, + normal peripheral pulses, + pertinent finding (BLE edema) Abdomen: normal bowel sounds, soft Neurologic/Psychiatric: + pertinent finding (lethargic/obtunded- did not respond during my assessment) Skin: normal color Laboratory Results Last 24 Hours Test 12/29/16 18:02 12/30/16 00:30 12/30/16 05:35 12/30/16 06:08 Bedside Glucose 290 mg/dl 275 mg/dl 250 mg/dl White Blood Count 19.48 K/uL Red Blood Count 4.69 M/uL Hemoglobin 14.3 g/dL Hematocrit 44.7 % Mean Corpuscular Volume 95.3 fL Mean Corpuscular Hemoglobin 30.5 pg Mean Corpuscular Hemoglobin Concent 32.0 g/dl Platelet Count 188 K/uL Mean Platelet Volume 11.4 fL Neutrophils (%) (Auto) 93.2 % Lymphocytes (%) (Auto) 3.2 % Monocytes (%) (Auto) 2.8 % Eosinophils (%) (Auto) 0.0 % Basophils (%) (Auto) 0.0 % Neutrophils # (Auto) 18.16 K/uL Lymphocytes # (Auto) 0.63 K/uL Monocytes # (Auto) 0.54 K/uL Eosinophils # (Auto) 0.00 K/uL Basophils # (Auto) 0.00 K/uL RDW Standard Deviation 49.5 fL RDW Coefficient of Variation 14.4 % Immature Granulocyte % (Auto) 0.8 % Immature Granulocyte # (Auto) 0.15 K/uL Sodium Level 144 mmol/L Potassium Level 4.3 mmol/L Chloride Level 108 mmol/L Carbon Dioxide Level 29 mmol/L Anion Gap 7.0 mmol/L Blood Urea Nitrogen 39 mg/dl Creatinine 0.97 mg/dl Est Creatinine Clear Calc Drug Dose 42.3 ml/min Estimated GFR () 60.9 Estimated GFR (Non- 52.5 BUN/Creatinine Ratio 40.0 Random Glucose 324 mg/dl Calcium Level 8.2 mg/dl Phosphorus Level 3.2 mg/dl Magnesium Level 2.4 mg/dl Beta-Hydroxybutyric Acid 0.86 mg/dL Test 12/30/16 11:36 Bedside Glucose 271 mg/dl Assessment & Plan Palliative Performance Scale: 10 % Problem list: N/V- resolved SBO 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 -Sons are leaning toward comfort measures only which would include stopping any meds unrelated to comfort, stopping TPN, and transferring out of PCU. -the patient's just here at [facility] a couple weeks ago, so they are still grieving/coping this loss. -they are requesting time to discuss with each other about transitioning patient to [facility]. -We reviewed patient's living will, she indicated she would not ant any life- prolonging measures when she end-stage. Addendum at 1620: Received call from primary RN that patient's family is ready to transition to [facility]. Dr. Lucia was also paged. I recommend increasing morphine to Q1h PRN, discontinue all abx, TPN and medications unrelated to comfort. Add scopolamine patch 1.5mg TD Q72h and atropine 1% oph soln 4 drops q2h PRN secretions. If frequent doses of morphine needed, may start continuous infusion. Thank you kindly for this consult. I will follow as needed.
[2016-12-30] MEDS ORDERED: MoRPHine SULFATE 4 MG/ML 1 ML CARP\\VIAL ONE (17:10)
[2016-12-30] MEDS ORDERED: ONDANSETRON INJ 2 MG/ML 2 ML VIAL IV PRN (17:15)
[2016-12-30] MEDS ORDERED: LORAZEPAM 2 MG/ML 1 ML VIAL IV PRN (17:15)
[2016-12-30] MEDS ORDERED: LORAZEPAM INJ 1 MG in SYRINGE 0.5 ML IV PRN (18:00)
[2016-12-31] MEDS: MoRPHine SULFATE 4 MG/ML 1 ML CARP\\VIAL IV PRN ×4 (10:05→23:41)
--- NOTE | 2016-12-31 12:49 | Progress Note ---
Subjective Date of Service: Dec 31, 2016. Subjective Pt evaluation today including: conversation w/ family, physical exam, chart review, lab review, review of studies, conversation w/ websphere consultant, review of inpatient medication list Patient is peaceful, no pain, comfortable, no distress Problem List Medical Problems: (1) Atrial fibrillation and flutter Status: Acute (2) Atrial fibrillation with RVR Status: Acute (3) UTI (urinary tract infection) Status: Acute Review of Systems Constitutional: + problem reported (not able to evaluation because patient is unresponsive and comfort measures only) Objective Vital Signs Date Time Temp Pulse Resp B/P (MAP) Pulse Ox O2 Delivery O2 Flow Rate FiO2 12/31/16 00:10 Nasal Cannula 2.0 12/30/16 20:00 Nasal Cannula 2.0 12/30/16 16:00 Nasal Cannula 2.0 12/30/16 15:47 36.4 85 20 192/118 (142) 95 Nasal Cannula 1.0 Physical Exam General Appearance: + pertinent finding (comfort) Respiratory/Chest: + decreased breath sounds Cardiovascular: + pertinent finding (S1 and S2) Abdomen: soft Skin: warm/dry Assessment and Plan 86 y/o female with a history of a-fib, HTN, HLD, CVA, diastolic CHF, depression and dementia who presented to the ED on 12/21 from [facility] with vomiting x 2 days. Was found has SBO/?colitis, later developed Acute left MCA/NOAH stroke, she is now unresponsive and in critical condition, now is comfort medicine only Per report Pt afebrile on arrival. Tachycardic, in a-fib with RVR and hypoxic with O2 sat 88% on room air. Pt does not typically wear oxygen although son states she is supposed to. The patient was given Lopressor 5 mg IV x 1 with no control of rate. Pt then placed on diltiazem drip with 20 mg bolus and is now rate controlled, BP stable. EKG shows a-fib with RVR, no ischemic changes. CXR suggestive of pulmonary edema. WBC elevated at 24.02. POC lactic acid 2.96. Cardiac enzymes negative. UA 4+ bacteria but also high in epithelial cells. Pt given IVF and Rocephin in ED. SBO/?colitis -CT abd/pelvis 12/23 depicted PSBO, was kept NPO and was started on IV zosyn, switched to IV rocephin 2 grams daily in addition to flagyl 500 mg IV TID -Gen surg consulted, repeat KUB, started on hyperalimentation on 12/27, PICC line placed, pharmacy consulted for TPN, cont solumedrol 60 mg IV TID, which was totally discontinued because of comfort methods only Acute left MCA/NOAH stroke Pt found unresponsive with right sided neglect on 12/29, MRI confirmed large MCA/NOAH ischemic stroke, teleneurology completed with Azucena, no acute intervention Was on on ASA 325 mg in addition to atorvastatin 80 mg, neurology consulted. Now is comfort medicine on Sepsis likely from UTI Was on telemetry Blood cultures x 2 NGTD, although pt did receive 1 dose Rocephin before they could be drawn Urine culture currently growing out E Coli C. diff and stool cultures neg A-fib with RVR--Tachycardia resolved, was on dilt drip dced, HTN, HLD, h/o CVA Chronic diastolic CHF GI prophylaxis, I'll try to poor because of comfort measures on Code Status Comfort measures only, patient is active dying , continue current care, discussed with family and nurse, answer all questions Continued [facility] stay due to: multiple IV medications needed Discharge planning: uncertain
[2016-12-31] MEDS ORDERED: NURSING VERBAL MED ORDER ONE (20:00)
[2016-12-31] MEDS ORDERED: SCOPOLAMINE 1.5 MG TDSY TD SCH (21:00)
[2016-12-31] MEDS: CHECK SCOPOLAMINE PATCH PLACEMENT SCH (23:41)
[2017-01-01] MEDS: MoRPHine SULFATE 4 MG/ML 1 ML CARP\\VIAL IV PRN ×3 (06:23→09:07)
[2017-01-01] MEDS: CHECK SCOPOLAMINE PATCH PLACEMENT SCH (08:00)
--- NOTE | 2017-01-01 11:30 | Death Summary ---
Summary of Admission Date Dec 21, 2016 at 13:15 Date & Time of Jan 01, 2017. 1014 Cause of large MCA/NOAH ischemic stroke bowel obstruction Sepsis likely from UTI Hospital Course 86 y/o female with a history of a-fib, HTN, HLD, CVA, diastolic CHF, depression and dementia who presented to the ED on 12/21 from [facility] with vomiting x 2 days. Was found has SBO/?colitis, later developed Acute left MCA/NOAH stroke, she is now unresponsive and in critical condition, has been on comfort medicine only Per report Pt afebrile on arrival. Tachycardic, in a-fib with RVR and hypoxic with O2 sat 88% on room air. Pt does not typically wear oxygen although son states she is supposed to. The patient was given Lopressor 5 mg IV x 1 with no control of rate. Pt then placed on diltiazem drip with 20 mg bolus and is now rate controlled, BP stable. EKG shows a-fib with RVR, no ischemic changes. CXR suggestive of pulmonary edema. WBC elevated at 24.02. POC lactic acid 2.96. Cardiac enzymes negative. UA 4+ bacteria but also high in epithelial cells. Pt given IVF and Rocephin in ED. SBO/?colitis -CT abd/pelvis 12/23 depicted PSBO, was kept NPO and was started on IV zosyn, switched to IV rocephin 2 grams daily in addition to flagyl 500 mg IV TID -Gen surg consulted, repeat KUB, started on hyperalimentation on 12/27, PICC line placed, pharmacy consulted for TPN, cont solumedrol 60 mg IV TID, which was totally discontinued because of comfort methods only Acute left MCA/NOAH stroke Pt found unresponsive with right sided neglect on 12/29, MRI confirmed large MCA/NOAH ischemic stroke, teleneurology completed with Azucena, no acute intervention Was on on ASA 325 mg in addition to atorvastatin 80 mg, neurology consulted. Now is comfort medicine on Sepsis likely from UTI Was on telemetry Blood cultures x 2 NGTD, although pt did receive 1 dose Rocephin before they could be drawn Urine culture currently growing out E Coli C. diff and stool cultures neg A-fib with RVR--Tachycardia resolved, was on dilt drip dced, HTN, HLD, h/o CVA Chronic diastolic CHF patient pronounced at 10:14 today
== END 2017-01-01 10:14 | disposition expired | DRG 871 ==
LOC: EDBD 08:11 → C.EDA 08:13 → C.2T 13:15 → EDBEDREQ 13:20 → ENRESERV 13:24 → C.2T 12-28 14:44 → C.2E 12-29 15:36 → EDBEDREQ 12-30 17:11 → ENRESERV 12-30 17:58 → C.4E 12-30 18:57
PROVIDERS: ADMIT Internal Medicine; ATTEND Hospitalist
PROC: 02HV33Z Insertion of Infusion Device into Superior Vena Cava, Percutaneous Approach (ICD-10-PCS; principal; 2016-12-27)
DX: A41.9 Sepsis, unspecified organism (principal); I63.8 Other cerebral infarction; N39.0 Urinary tract infection, site not specified; I67.82 Cerebral ischemia; R41.4 Neurologic neglect syndrome; G81.91 Hemiplegia, unspecified affecting right dominant side; K56.60 Unspecified intestinal obstruction; I50.32 Chronic diastolic (congestive) heart failure; B96.20 Unspecified Escherichia coli [E. coli] as the cause of diseases classified elsewhere; K52.9 Noninfective gastroenteritis and colitis, unspecified; E86.0 Dehydration; R09.02 Hypoxemia; E87.70 Fluid overload, unspecified; I48.91 Unspecified atrial fibrillation; I11.0 Hypertensive heart disease with heart failure; H91.90 Unspecified hearing loss, unspecified ear; G30.9 Alzheimer's disease, unspecified; F01.50 Vascular dementia, unspecified severity, without behavioral disturbance, psychotic disturbance, mood disturbance, and anxiety; F02.80 Dementia in other diseases classified elsewhere, unspecified severity, without behavioral disturbance, psychotic disturbance, mood disturbance, and anxiety; Z51.5 Encounter for palliative care; Z66 Do not resuscitate; Z79.82 Long term (current) use of aspirin; Z79.899 Other long term (current) drug therapy